=== PATIENT | female | born 2000 | race Caucasian/White ===

== ENCOUNTER 2024-05-14 20:26 | Outpatient (REF) | payer BC, SELFPAY | END 2024-05-14 20:27 | disposition home or self-care (01) | LOC: LAB 20:26 | PROVIDERS: Visit Provider Obstetrics & Gynecology | DX: Z01.419 Encounter for gynecological examination (general) (routine) without abnormal findings (principal) | CPT/HCPCS: 88175 ==

== ENCOUNTER 2025-09-14 19:39 | Outpatient (REF) | payer OTHER, SELFPAY ==
--- OUTSIDE RECORDS SUMMARY | 2017-11-14 07:57 | XMS_ITS | Continuity of Care Document ---
Author Organization [facility] Address [address] [place] [address] Phone Care Team Providers Care Putty Remover Name Role Phone Omar Del Rosario MD [...] Diagnoses Date Provider Providers Copied on Encounter [facility], [address] [place] [address], [id number], tel:[phone] [facility] No Information Miguel Ángel Nelson. [address] [place], [place], [id number], [place]. tel:[phone] [facility], [address] [place], [place], [id number], [place] tel:[phone] [facility] No Information Feliciano Chaves. [address] [place], [place], [id number], [place]. tel:[phone] PREVENTIVE COUNSELING, GEORGE [facility], [address] [place], [place], [id number], [place] tel:[phone] [facility] No Information Feliciano DO Abdalla. [address] [place], [place], [id number], [place]. tel:[phone] Family History Family Member Type Diagnosis Age At Onset No Information Immunizations Vaccine Date Status Comments MCV4 administered Source: New Imm unization Record Tdap administered Source: New Imm unization Record MCV4 (11-55 yrs) administered Source: New Immunization Record Payers Payer name Insurance type Covered alliance party ID Authoriza tion(s) No Information Social [...]
--- OUTSIDE RECORDS SUMMARY | 2024-03-26 07:00 | XMS_ITS ---
Author Organization [facility] Address [address] [place] [address] Care Team Providers Care Television News Producer Name Role Phone Angelika Aparicio Primary Care Provider [phone] REASON FOR VISIT BH F/U Encounters Encounter Location Date Provider Diagnosis [facility] [address] [place] [address] 03/26/2024 Angelika Aparicio Plan Of Treatment No Information Progress Notes * YAO CLARKENZIE NDOB:1999 (24 yo F)Acc No.[id number]:03/26/2024 BH F/U - Patient Patient: GIA DONOHUE Sophia :?ANGELIKA BEANDOB:2000???Age:23 Y ???Sex:FemaleDate:4Phone:[phone]:[address], [id number]-[id number] Subjective: * Chief Complaints: * B H F/U Care Plan Details* * Electronic signature of SATYA Marin on 09/14/2025 at 02:38 PM EDT Sign off status: Pending * Provider: Hussein BEAN Date: 0 03/26/2024 Generated for Printing/Faxing/eTransmitting on:?09/14/2025 02:38 PM EDT
--- OUTSIDE RECORDS SUMMARY | 2024-04-02 07:00 | XMS_ITS ---
Author Organization [facility] Address [address] [place] [address] Care Team Providers Care Wood Veneer Taper Name Role Phone Angelika Aparicio Primary Care Provider [phone] REASON FOR VISIT BH F/U Encounters Encounter Location Date Provider Diagnosis [facility] [address] [place] [address] 04/02/2024 Angelika Aparicio Plan Of Treatment No Information Progress Notes * YAO CLARKENZIE NDOB:1999 (24 yo F)Acc No.[id number]:04/02/2024 BH F/U - Patient Patient: GIA DONOHUE Sophia :?ANGELIKA BEANDOB:2000???Age:23 Y ???Sex:FemaleDate:4Phone:[phone]:[address], [place]-[address] Subjective: * Chief Complaints: * B H F/U Care Plan Details* * Electronic signature of SATYA Marin on 09/14/2025 at 02:38 PM EDT Sign off status: Pending * Provider: Hussein BEAN Date: 0 04/02/2024 Generated for Printing/Faxing/eTransmitting on:?09/14/2025 02:38 PM EDT
--- OUTSIDE RECORDS SUMMARY | 2024-05-08 09:30 | XMS_ITS ---
Author Organization [facility] Address [address] [place] [address] Care Team Providers Care Geothermal Operations Manager Name Role Phone Angelika Aparicio Primary Care Provider [phone] REASON FOR VISIT BH F/U Encounters Encounter Location Date Provider Diagnosis [facility] [address] [place] [address] 05/08/2024 Angelika Aparicio Plan Of Treatment No Information Progress Notes * YAO CLARKENZIE NDOB:1999 (24 yo F)Acc No.[id number]:05/08/2024 BH F/U - Patient Patient: GIA DONOHUE Sophia :?ANGELIKA BEANDOB:2000???Age:23 Y ???Sex:FemaleDate:4Phone:[phone]:[address], [place]-[address] Subjective: * Chief Complaints: * B H F/U Care Plan Details* * Electronic signature of SATYA Marin on 09/14/2025 at 02:38 PM EDT Sign off status: Pending * Provider: Hussein BEAN Date: 0 05/08/2024 Generated for Printing/Faxing/eTransmitting on:?09/14/2025 02:38 PM EDT
--- OUTSIDE RECORDS SUMMARY | 2024-07-11 12:00 | XMS_ITS ---
Author Organization [facility] Address [address] [place] [address] Care Team Providers Care Gunstock Repairer Name Role Phone Angelika Aparicio Primary Care Provider [phone] REASON FOR VISIT BH F/U *ALL INTAKE DUE* Encounters Encounter Location Date Provider Diagnosis [facility] [address] [place] [address] 07/11/2024 Angelika Aparicio Plan Of Treatment No Information Progress Notes * GIA CLARK NDOB:1999 (24 yo F)Acc No.[id number]:07/11/2024 F/U - Patient Patient: GIA DONOHUE Sophia :?ANGELIKA BEANDOB:2000???Age:23 Y ???Sex:FemaleDate:4Phone:[phone]:[address], [place] Subjective: * Chief Complaints: * B H F/U *ALL INTAKE DUE* Care Plan Details* * Electronic signature of SATYA Marin on 09/14/2025 at 02:38 PM EDT Sign off status: Pending * Provider: Hussein BEAN Date: 0 07/11/2024 Generated for Printing/Faxing/eTransmitting on:?09/14/2025 02:38 PM EDT
--- OUTSIDE RECORDS SUMMARY | 2024-07-18 11:00 | XMS_ITS ---
Author Organization [facility] Address [address] [place] [address] Care Team Providers Care Press Catcher Name Role Phone Angelika Aparicio Primary Care Provider REASON FOR VISIT bh f/u Encounters Encounter Location Date Provider Diagnosis [facility] [address] [place] [address] 07/18/2024 Angelika Aparicio Plan Of Treatment No Information Progress Notes * YAO CLARKENZIE NDOB:1999 (24 yo F)Acc No.[id number]:07/18/2024 BH F/U - Patient Patient: GIA DONOHUE Sophia :?ANGELIKA BEANDOB:2000???Age:23 Y ???Sex:FemaleDate:4Phone:[phone]:[address], [place]-[address] Subjective: * Chief Complaints: * B h f/u Care Plan Details* * Electronic signature of SATYA Marin on 09/14/2025 at 02:38 PM EDT Sign off status: Pending * Provider: Hussein BEAN Date: 0 07/18/2024 Generated for Printing/Faxing/eTransmitting on:?09/14/2025 02:38 PM EDT
--- OUTSIDE RECORDS SUMMARY | 2024-07-31 09:00 | XMS_ITS ---
Author Organization [facility] Address [address] [place] [address] Care Team Providers Care Regional Driver Name Role Phone Cristal Aparicio Primary Care Provider REASON FOR VISIT BH F/U Encounters Encounter Location Date Provider Diagnosis [facility] [address] [place] [address] 07/31/2024 Cristal Aparicio Plan Of Treatment No Information Progress Notes * GIA CLARK NDOB:1999 (24 yo F)Acc No.[id number]:07/31/2024 BH F/U - Patient Patient: JOYCE DONOHUEALBINO Cortes :?CRSITAL BEANDOB:2000???Age:23 Y ???Sex:FemaleDate:4Phone:[phone]:[address], [place]-[address] Subjective: * Chief Complaints: * B H F/U Care Plan Details* * Electronic signature of SATYA Marin on 09/14/2025 at 02:38 PM EDT Sign off status: Pending * Provider: Hussein BEAN Date: 0 07/31/2024 Generated for Printing/Faxing/eTransmitting on:?09/14/2025 02:38 PM EDT
--- OUTSIDE RECORDS SUMMARY | 2025-09-14 14:40 | XMS_ITS | Encounter Summary ---
Author Organization [facility] Address [address] [place] [address] Care Team Providers Care Chief Deputy Sheriff Name Role Phone James Mcqueen MD Primary Care Provider [phone] Reason for Visit * ReasonCommentsGynecologic ExamPre-op VisitDx lap Encounter Details DateTypeDepartmentCare Team (Latest Contact Info)Bqeipiodlbf51/27/2025 2:40 PM EDTProcedure Visit [facility] [facility] [address] [place] [address] Vicente Freire DO [address] [place], [facility]11 Pre-op examination; Well woman exam with routine gynecological exam; Pelvic pain in female; Menorrhagia with regular cycle Social History Tobacco UseTypesPacks/DayYears UsedDateSmoking Tobacco: NeverSmokeless Tobacco: NeverAlcohol UseStandard Drinks/WeekCommentsNever0 (1 standard drink = 0.6 oz pure alcohol)CommentsNoSex and Gender InformationValueDate RecordedSex Assigned at BirthNot on fileLegal HqsNbajql71/15/2023 11:09 PM EDTGender IdentityNot on fileSexual OrientationNot on filedocumented as of this encounter Last Filed Vital Signs Vital SignReadingTime TakenCommentsBlood Nkjiflof155/7009/14/2025 2:56 PM EDT Pulse--Temperature--Respiratory Rate--Oxygen Saturation--Inhaled Oxygen Concentration--Sktjlo11.8 kg (125 lb 1.9 oz)09/14/2025 2:56 PM XLJEnvkqe578 cm (5' 3 )09/14/2025 2:56 PM EDTBody Mass Index22.161 2:56 PM EDT documented in this encounter Progress Notes * Kisha Donovan - 09/14/2025 2:40 PM EDT Reason for Appointment: Patient ID: Shrerell Esquivel is a 24 y.o. female who presents for Gynecologic Exam and Pre-op Visit (Dx lap) Patient presents today for Pre Op/Annual appointment. Patient is scheduled to undergo Diagnostic Laparoscopy, possible JAKE, possible FOE, possible BSO on 10/05/[address] Freire at [facility]. MEDICATIONS Current Outpatient Medications Medication Instructions lamoTRIgine [...] History: Diagnosis Date Anxiety Bacterial vaginosis Cancer ([facility]) 2003 Depression Gonorrhea 07/09/2021 Insulin resistance Ovarian [...] nursing note reviewed. Exam conducted with a director of donor relations present. Vitals: Estimated body mass index is [...] reviewed, and patient is to proceed to [facility]. Follow Up: Patient is to follow up between 1-2 weeks post operative to assess proper healing and recovery fromprocedure. Documented by Macy Montano LPN on behalf of: Vicente Freire DO documented in this encounter Plan of Treatment DateTypeDepartmentCare Team (Latest Contact Info)Keksfgwxjpv39/01/2025 4:00 PM ESTOffice Visit [facility] [place] [facility] [address] [place] [address] Marisel Carrizales PA [address] [place] [address] NameTypePriorityAssociated DiagnosesOrder SchedulePap SmearPathology and CytologyRoutine Pre-op examination Ordered: 09/14/2025documented as of this encounter Visit Diagnoses Diagnosis Pre-op examination Well woman exam with routine gynecological exam Routine gynecological examination Pelvic pain in female Unspecified symptom associated with female genital organs Menorrhagia with regular cycle documented in this encounter Care Teams Team MemberRelationshipSpecialtyStart DateEnd Date James Mcqueen MD [address] [place] [address] PCP - GeneralFamily Medicine05/19/23documented as of this encounter
--- OUTSIDE RECORDS SUMMARY | 2025-09-14 19:44 | XMS_ITS | Clinical Summary ---
Author Organization 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)give 2.5ml by mouth at bedtime-if no relief of symptoms, may increase to 5ml daily at bedtime for al lergy symptoms 150ml ctive Active Problems ProblemNoted DateDiagnosed DateAcute lymphoid leukemia in vrdogqueg76/17/2003 Immunizations ImmunizationAdministration DatesNext Dueinfluenza vaccine, unspecified lbhuztsrjfm22/25/2004,09/25/2003varicella zoster immune globulin (VZIG) (VARIZIG)03/16/2004 Family History Medical HistoryRelationCommentsHeadacheFatherMigrainesDiabetesMaternal GrandfatherNoneMaternal GrandmotherNoneMotherHeadachePaternal Grandmother Migraines, seizuresNoneSister 1half-sisterNoneSister 2half-sisterNoneSister 3 RelationStatusCommentsFatherMaternal GrandfatherMaternal GrandmotherMother Paternal GrandmotherSister 1Sister 2Sister 3 Social History Tobacco UseTypesPacks/DayYears UsedDateSmoking Tobacco: NeverAlcohol UseStandard Drinks/WeekCommentsNo0 (1 standard drink = 0.6 oz pure alcohol)Comments NoSex and Gender InformationValueDate RecordedSex Assigned at BirthNot on file Legal NtjWdokqb84/02/2012 9:50 AM ESTGender IdentityNot on fileSexual OrientationNot on file Last Filed Vital Signs Vital SignReadingTime TakenCommentsBlood Tbiaojek265/64012/18/2011 9:09 AM EST Lllqc6635 9:09 AM KJVQigrczdgrdm27.2 ??C (97.1 ??F)12/18/2011 9:09 AM ESTRespiratory Rate--Oxygen Saturation--Inhaled Oxygen Concentration--Eadeyh19.1 kg (95 lb 0.3 oz)12/18/2011 9:09 AM UEZAgjift253.1 cm (4' 10.7 )12/18/2011 9:09 AM ESTBody Mass Index19.39012/18/2011 9:09 AM EST Plan of Treatment Health MaintenanceDue DateLast DoneCommentsPeds To Adult Transition Initial Obuwusbpjk50/26/2010Peds To Adult Transition Annual Lodplreqlk59/26/2012HPV Vaccine (1 - 3-dose series)2013nxiety Cwmxltpnz36/26/2016Depression Xbdxjdfud95/26/2016HIV Ayizmoqpo53/26/2016Hepatitis C Hrnjybbzi42/26/2016 DTaP,Tdap,Td Vaccine (1 - Tdap)2017Hepatitis B Vaccine (1 of 3 - 19+ 3- dose series)2017Cervical Cancer Lhlwzcoan45/26/2019Covid-19 Vaccine (1 - 2024- season)2025Influenza Vaccine (#1), 09/25/2003 Insurance
--- OUTSIDE RECORDS SUMMARY | 2025-09-14 19:44 | XMS_ITS | Encounter Summary ---
Author Organization [facility] Address [address] [place] [address] Care Team Providers Care Automatic Line Set Up Mechanic Name Role Phone James Mcqueen MD Primary Care Provider [phone] Encounter Details DateTypeDepartmentCare Team (Latest Contact Info)Qexoiqkeqit32/20/2025Travel Social History Tobacco UseTypesPacks/DayYears UsedDateSmoking Tobacco: NeverSmokeless Tobacco: NeverAlcohol UseStandard Drinks/WeekCommentsNever0 (1 standard drink = 0.6 oz pure alcohol)CommentsNoSex and Gender InformationValueDate RecordedSex Assigned at BirthNot on fileLegal EjwNhrwxo54/15/2023 11:09 PM EDTGender IdentityNot on fileSexual OrientationNot on filedocumented as of this encounter Plan of Treatment DateTypeDepartmentCare Team (Latest Contact Info)Gtnxehhtizr04/01/2025 4:00 PM ESTOffice Visit [facility] [address] [facility] [place] [address] Marisel Carrizales PA [address] [facility] [place] [address] documented as of this encounter Visit Diagnoses Not on filedocumented in this encounter Care Teams Team MemberRelationshipSpecialtyStart DateEnd Date James Mcqueen MD [address] [place] [address] [place] [address] PCP - GeneralFamily Medicine05/19/23documented as of this encounter
--- OUTSIDE RECORDS SUMMARY | 2025-09-14 19:44 | XMS_ITS | Encounter Summary ---
Author Organization [facility] Address [address] [place] [address] Care Team Providers Care Motorcycle Mechanic Apprentice Name Role Phone James Mcqueen MD Primary Care Provider [phone] Encounter Details DateTypeDepartmentCare Team (Latest Contact Info)Hcskacssjez79/27/2025amboo flowsheet [facility] [address] [place] [address] Vicente Freire DO [address] [place] [address] Social History Tobacco UseTypesPacks/DayYears UsedDateSmoking Tobacco: NeverSmokeless Tobacco: NeverAlcohol UseStandard Drinks/WeekCommentsNever0 (1 standard drink = 0.6 oz pure alcohol)CommentsNoSex and Gender InformationValueDate RecordedSex Assigned at BirthNot on fileLegal LscYujcey72/15/2023 11:09 PM EDTGender IdentityNot on fileSexual OrientationNot on filedocumented as of this encounter Plan of Treatment DateTypeDepartmentCare Team (Latest Contact Info)Gfgzdurhydo14/01/2025 4:00 PM ESTOffice Visit [facility] [address] [place] [address] Marisel Carrizales PA [address] [place] [address] documented as of this encounter Visit Diagnoses Not on filedocumented in this encounter Care Teams Team MemberRelationshipSpecialtyStart DateEnd Date James Mcqueen MD [address] [place] [address] [place] [address] [place] [address] PCP - GeneralFamily Medicine05/19/23documented as of this encounter
--- OUTSIDE RECORDS SUMMARY | 2025-09-14 19:44 | XMS_ITS | Clinical Summary ---
Author Organization [facility] Address [address] [place] [address] Care Team Providers Care Dental Biller Name Role Phone James Mcqueen MD Primary Care Provider [phone] Allergies Active AllergyReactionsCriticalityNoted DateCommentsOndansetronAnaphylaxis,Hives High05/14/2023 Other Reaction(s): anaphylaxis Medications MedicationSigDispense QuantityRefillsLast FilledStart DateEnd DateStatus QUEtiapine (SEROquel) 25 MG tablet Take by mouth12/17/2023ctive lamoTRIgine (LaMICtal) 200 MG tablet 200 mgActive metFORMIN XR (Glucophage-XR) 500 MG 24 hr tablet 500 mgActive docusate sodium (Colace) 100 MG capsule Indications:Constipation, unspecified constipation typeTake 1 capsule (100 mg) by mouth 2 (two) times a day as needed for constipation for up to 10 days 30 capsule Expired Encounters DateTypeDepartmentCare DvpzJhbwycleuhl63/27/2025 2:40 PM EDTPro[place] [address] Vicente Freire DO Pre-op examination; Well woman exam with routine gynecological exam; Pelvic pain in female; Menorrhagia with regular cycle09/14/2025amboo flowsheet [facility] [address] [place] [address] Vicente Freire, 09/07/20250477Kfpxox92/22/2025 3:10 PM EDTOffice Visit [facility] [address] [place] [address] [place] [address] Vicente Freire, Constipation, unspecified constipation type (Primary Dx); Menorrhagia with regular cycle; Painful menstrual periods; Nausea and vomiting, unspecified vomiting type; Intractable menstrual migraine with status teygnikymbg93/22/2025amboo flowsheet [facility] [address] [place] [address] [place] [address] Vicente Freire DO 08/03/2025Travelfrom Last 3 Months Social History Tobacco UseTypesPacks/DayYears UsedDateSmoking Tobacco: NeverSmokeless Tobacco: Never Tobacco Cessation:Counseling Given: Not Answered Alcohol UseStandard Drinks/WeekCommentsNever0 (1 standard drink = 0.6 oz pure alcohol)CommentsNoSex and Gender InformationValueDate RecordedSex Assigned at BirthNot on fileLegal MmxEkvuhi25/15/2023 11:09 PM EDTGender IdentityNot on fileSexual OrientationNot on file Last Filed Vital Signs Vital SignReadingTime TakenCommentsBlood Jylzevlj499/7010 2:56 PM EDT Cjzcw235205/19/2023 10:26 AM RHYSjqdczvnabb08.7 ??C (98 ??F)05/19/2023 10:26 AM EDTRespiratory Rate--Oxygen Plzymzhgea68%05/19/2023 10:26 AM EDTInhaled Oxygen Concentration--Ieoayt77.8 kg (125 lb 1.9 oz)09/14/2025 2:56 PM HDCJguxkf200 cm (5' 3 )09/14/2025 2:56 PM EDTBody Mass Index22.161 2:56 PM EDT Plan of Treatment DateTypeDepartmentCare Team (Latest Contact Info)Ruttjhxxmyv95/01/2025 4:00 PM ESTOffice Visit [facility] [place] [address] Marisel Carrizales PA [address] [place] [address] Health MaintenanceDue DateLast DoneCommentsMMR Vaccines (1 of 1 - Standard series)1999DTaP/Tdap/Td Vaccines (1 - Tdap)2005Varicella Vaccines (1 of 2 - 13+ 2-dose series)2011HPV Vaccines (1 - 3-dose series)2013 Hepatitis B Vaccines (1 of 3 - 19+ 3-dose series)2017COVID-19 Vaccine ( - 2024- season), 05/03/2021, 04/12/2021Influenza Vaccine (#1)/02/2006, 09/09/2005, 09/12/2004, Additional history existsHIB VaccinesAged OutNo longer eligible based on patient's age to complete this topic Hepatitis A VaccinesAged OutNo longer eligible based on patient's age to complete this topicIPV VaccinesAged OutNo longer eligible based on patient's age to complete this topicMeningococcal B VaccineAged OutNo longer eligible based on patient's age to complete this topicMeningococcal VaccineAged OutNo longer eligible based on patient's age to complete this topicPneumococcal Vaccine: Pediatrics (0 to 5 Years) and At-Risk Patients (6 to 64 Years)Aged OutNo longer eligible based on patient's age to complete this topicRotavirus VaccinesAged Out No longer eligible based on patient's age to complete this topic Insurance Care Teams Team MemberRelationshipSpecialtyStart DateEnd James Mcqueen MD [address] [place] [address] [place] [address] PCP - GeneralFamily Medicine05/19/23
--- OUTSIDE RECORDS SUMMARY | 2025-09-14 19:44 | XMS_ITS | Patient Health Record ---
Author Organization [facility] [facility] Address [address] [place] [address] Care Team Providers Care Tank Systems Maintainer Name Role Phone Cristal Aparicio Primary Care Provider [phone] Allergies Allergen (clinical drug ingredient) Drug/Non Drug Allergy documented on EMR Reaction Allergy Type Onset Date Status ZofrananaphylaxisDrug AllergyActive Reason For Referral No Information Medications Medication SIG (Take, Route, Frequency, Duration) Notes Start Date End Date Status Fluticasone Propionate 50 MC G/ACT Suspension SPRAY 1 SPRAY INTO EACH NOSTRIL EVERY DAY FOR 30 DAYS; Duration: 30 Not-Taking/PRNCaplyta 21 MG Capsule1 capsules in evening for 14 days the start next dose Orally Once a day; Duration: 14 days01/24/2024Not-Taking/PRNMeloxicam 15 MG Tablet1 tablet Orally Once a day; Duration: 30 day(s)Not-Taking/PRN lamoTRIgine 25 MG Tabletas directed Orally as directed; Duration: 45 day(s)1 tab po daily x 2wks, then 1 BID x 2wks, then 2 AM and 1 PM x 2wks, then 2 BID x 2 wks, monitor rash/fever05/16/2023Not-Taking/PRNmetFORMIN HCl ER 500 MG Tablet Extended Release 24 HourOral; Duration: 30Not-Taking/PRNARIPiprazole 5 MG Tablet 1 tablet Orally Once a day; Duration: 90 daysNot-Taking/PRNQUEtiapine Fumarate 25 MG Tablet0.5-1 tab at bedtime Orally Once a day; Duration: 90 days Not-Taking/PRNALPRAZolam 0.25 MG Tablet1 tab for anxiety or agitation as needed Orally Twice a day; Duration: 3 days05/05/2024ctivelamoTRIgine 200 MG Tablet TAKE 1 TABLET BY MOUTH DAILY; Duration: 90Not-Taking/PRNRexulti 1 MG Tablet1 tablet Orally Once a day; Duration: 30 day(s)05/16/2023Not-Taking/PRNCaplyta 42 MG Capsule1 capsule Orally Once a day; Duration: 30 days01/24/2024Not-Taking/PRN Caplyta 10.5 MG Capsule1 cap daily in evening Orally once a daydose adjusted /ctivelamoTRIgine 25 MG Tabletas directed Orally as directed; Duration: 56 days1 tab po daily x 2wks, then 1 BID x 2wks, then 2 AM and 1 PM x 2wks, then 2 BID x 2 wks, monitor rash/fever10/24/2023Not-Taking/PRN Immunizations Vaccine Route Administration Date Status Comme nts DTap - Infanrix Unknown 12/20/2022 Administered DTap - WnuttaufVrjmyew79/01/2023dministeredDTap - YaglntkqUvwkfwp04/01/2023 AdministeredDTap - NekezeriZanqgay68/01/2023dministeredDTap - InfanrixUnknown 12/20/2022dministeredHepB - Engerix (Peds/Adol)Jrxufbd41 1998Administered HepB - Engerix (Peds/Adol)Khppeob8201/18/1999AdministeredHepB - Engerix (Peds/Adol)Ytooogk3105/20/1999AdministeredMeningococcal (MENACTRA)Unknown 05/19/20114826FdwxkitmpowkPEUJdtouge24/07/2507MrumexxliokuGDOQpovotb46/26/2004 LwkpvkqxdtepUAAGLFTiosxyu02/25/7797GqicrllitlfkJPANQKOqbgdss08/15/2021 AdministeredPFIZERIM Qqtjozjhdcrwd69/15/2021dministeredBoosterPFIZERUnknown 11/02/2021dministeredPolio, VRJSluwygf99/07/2000AdministeredPolio, IPVUnknown 07/14/20047374SmxxralxtondVXNRYdimxmz24/01/2011dministeredzzz do not use Adult flu Enkrjjm9909/22/2006dministered Social History Tobacco Use: Social History Observation Description Date Details (start date - stop date) Never Smoker NA - NA Social History Social DeterminantsSocial InfoQuestionAnswerNotesPRAPAREDate Completed/Updated: 05/08/2022What is your current housing situation?I have housingAre you worried about losing your housing?NoWhat is the highest level of school that you have finished?High school diploma or GEDWhat is your 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 Check all that applyI do not have problems meeting my needsHas lack of transportation kept you from medical appointments, meetings, work or from getting things needed for daily living?NoHow often do you see or talk to people that you care about and feel close to? (For example: talkingto friends on the phone, visiting friends or family, going to cheondoism or club meetings)More than 5 times a weekHow stressed are you? Stress is when someone feels tense, nervous, anxious, or cant sleep at night because their mind is troubledNot at allIn the past year have you spent more than 2 nights in a row in a correction, long term, shelter center, orjuvenile correctional facility?NoAre you a refugee?NoWhat country are you from?[place]Do you feel physically and emotionally safe where you currently live?YesIn the past year, have you been afraid of your partner or ex-partner?NoPRAPARE Score:2GeneralSocial InfoQuestionAnswerNotesTransition of Care:ER/UC/hospital since last office visit?NoSpecialist seen since last office visit?NoSubstance abuse/mental health issues of patient/familyPatient -DeniesAbility to understand healthcare/treatmentPatient:GoodTobacco Screen:Are you a:never smokerSexual Hx: Had sex in the last 12 months (vaginal, oral, or anal)?Yes? withMen onlyHave you ever had an STD?NoLMP:04/17/2022ocial/Support Concerns:Patient:NoAlcohol Screening:Did you have a drink containing alcohol in the past year?Yes? How often did you have a drink containing alcohol in the past year?Monthly or less (1 point)? How many drinks did you have on a typical day when you were drinking in the past year?3 or 4 (1 point)? How often did you have six or more drinks on one occasion in the past year?Never (0 points)Xonxul2ZscgmweoiulzqdRhvstquw Behaviors affecting healthPoor/Risky Behaviors:Denies-Communication Barrier: Language Barrier?:Not Needed Problems Problem Type SNOMED Code ICD Code Onset Dates Problem Status W/U Status Risk Notes Problem Seasonal allergy (860798003) Seasonal all ergies (J30.2) ActiveconfirmedProblemGeneralized anxiety disorder (88119891)Generalized Anxiety Disorder (JERMAN) (F41.1)ActiveconfirmedProblemTension headache (894996454)Tension headache (G44.209)ActiveconfirmedProblemEpisodic mood disorder (36523168504099) Episodic mood disorder (F39)ActiveconfirmedProblemReduction deformity of lower limb (71765925)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)Active confirmedProblemLate menses (28295509)Late menses (N92.6)Activeconfirmed Plan Of Treatment No Information Insurance Providers Payer Name Payer Address Payer Phone Subscriber Number Group Number Insured Name Patient Relationship to Insured Coverage Start Date Coverage End Date ANTHEM Primary [address] [place] [address] [id number] CONNIE CLARK Parent 3 MEDICAL [facility] [address] [place] [phone] [id number], MACKENZIESelf - patient is the [id number] 2019 2022 Medical (General) History Medical History History ICD Code Tension headaches anxietymood disorderSurgical History Surgery Date(Month/Year) 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
[2025-09-18 00:09] LABS: Age Gdln ACOG Testing Note (.); IGP, rfx Aptima HPV ASCU Note (.)
== END 2025-09-14 19:40 | disposition home or self-care (01) ==
LOC: LAB 19:39
PROVIDERS: Visit Provider Obstetrics & Gynecology
DX: Z01.419 Encounter for gynecological examination (general) (routine) without abnormal findings (principal); Z01.818 Encounter for other preprocedural examination
CPT/HCPCS: 88175

== ENCOUNTER 2025-09-25 07:51 | Outpatient (OUT) | payer OTHER, SELFPAY ==
--- OUTSIDE RECORDS SUMMARY | 2017-11-14 06:57 | XMS_ITS | Continuity of Care Document ---
Author Organization [facility] Address [address] [place] [address] Phone Care Team Providers Care Training And Development Director Name Role Phone Omar Del Rosario MD Unavailable Unavailable Procedures Procedure Date Imm Admin Through 16 Yrs Of Age 016 Meningococcal Conjugate Vaccine 016 PREVENTIVE COUNSELING, INDIV MENINGOCOCCAL VACCINE, IM TDAP VACCINE >7 IM MENINGOCOCCAL VACCINE, IM TDAP VACCINE >7 IM OFFICE/OUTPATIENT VISIT, EST Advance Directives Directive Yes / No Effective Date File Name No Information Encounters Encounter Description Practice Location Reason(s) For Visit Diagnoses Date Provider Providers Copied on Encounter [facility], [address] [place] [address], [id number], tel:[phone] [facility] No Information Miguel Ángel Nelson. [address] [place], [place], [id number], [place]. tel:[phone] [facility], [address] [place], [place], [id number], [place] tel:[phone] [facility] No Information Feliciano Chaves. [address] [place], [place], [id number], [place]. tel:[phone] PREVENTIVE COUNSELING, GEORGE [facility], [address] [place], [place], [id number], [place] tel:[phone] [facility] No Information Feliciano DO Abdalla. [address] [place], [place], [id number], [place]. tel:[phone] Family History Family Member Type Diagnosis Age At Onset No Information Immunizations Vaccine Date Status Comments MCV4 administered Source: New Imm unization Record Tdap administered Source: New Imm unization Record MCV4 (11-55 yrs) administered Source: New Immunization Record Payers Payer name Insurance type Covered constitution party ID Authoriza tion(s) No Information Social History Type Description Quantity Date Captured Comments Sex Female Smoking Status No Information Chief Complaint And Reason For Visit No Information Reason For Referral Reason For Referral No Information History Of Present Illness Encounter Date Complaint History Of Prese nt Illness No Information Functional Status Date Functional Assessmen t No Information Instructions Date Instruction Additional Infor mation No Information Assessments Type Assessment Date No Information Patient Care Teams Name Effective Dates (start - stop) Status Members No Information
--- OUTSIDE RECORDS SUMMARY | 2024-03-26 06:00 | XMS_ITS ---
Author Organization [facility] Address [address] [place] [address] Care Team Providers Care Registered Mail Clerk Name Role Phone Angelika Aparicio Primary Care Provider REASON FOR VISIT BH F/U Encounters Encounter Location Date Provider Diagnosis [facility] [address] [place] [address] 03/26/2024 Angelika Aparicio Plan Of Treatment No Information Progress Notes * JOYCE CLARKIE NDOB:1999 (24 yo F)Acc No.[id number]:03/26/2024 BH F/U - Patient Patient: GIA DONOHUE Sophia :?ANGELIKA BEANDOB:2000???Age:23 Y ???Sex:FemaleDate:4Phone:[phone]:[address] [facility]OP-[address] Subjective: * Chief Complaints: * B H F/U Care Plan Details* * Electronic signature of SATYA Marin on 09/25/2025 at 07:56 AM EST Sign off status: Pending * Provider: Hussein BEAN Date: 0 03/26/2024 Generated for Printing/Faxing/eTransmitting on:?09/25/2025 07:56 AM EST
--- OUTSIDE RECORDS SUMMARY | 2024-04-02 06:00 | XMS_ITS ---
Author Organization [facility] Address [address] [place] [address] Care Team Providers Care Sort Operations Supervisor Name Role Phone Angelika Aparicio Primary Care Provider REASON FOR VISIT BH F/U Encounters Encounter Location Date Provider Diagnosis [facility] [address] [place] [address] 04/02/2024 Angelika Aparicio Plan Of Treatment No Information Progress Notes * JOYCE CLARKIE NDOB:1999 (24 yo F)Acc No.[id number]:04/02/2024 BH F/U - Patient Patient: GIA DONOHUE Sophia :?ANGELIKA BEANDOB:2000???Age:23 Y ???Sex:FemaleDate:4Phone:[phone]:[address]OG-[address] Subjective: * Chief Complaints: * B H F/U Care Plan Details* * Electronic signature of SATYA Marin on 09/25/2025 at 07:55 AM EST Sign off status: Pending * Provider: Hussein BEAN Date: 0 04/02/2024 Generated for Printing/Faxing/eTransmitting on:?09/25/2025 07:55 AM EST
--- OUTSIDE RECORDS SUMMARY | 2024-05-08 08:30 | XMS_ITS ---
Author Organization [facility] Address [address] [place] [address] Care Team Providers Care Track Template Maker Name Role Phone Angelika Aparicio Primary Care Provider REASON FOR VISIT BH F/U Encounters Encounter Location Date Provider Diagnosis [facility] [address] [place] [address] 05/08/2024 Angelika Aparicio Plan Of Treatment No Information Progress Notes * YAO CLARKENZIE NDOB:1999 (24 yo F)Acc No.[id number]:05/08/2024 BH F/U - Patient Patient: GIA DONOHUE Sophia :?ANGELIKA BEANDOB:2000???Age:23 Y ???Sex:FemaleDate:4Phone:[phone]:[address]ASSM REHABCJ-[address] Subjective: * Chief Complaints: * B H F/U Care Plan Details* * Electronic signature of SATYA Marin on 09/25/2025 at 07:55 AM EST Sign off status: Pending * Provider: Hussein BEAN Date: 0 05/08/2024 Generated for Printing/Faxing/eTransmitting on:?09/25/2025 07:55 AM EST
--- OUTSIDE RECORDS SUMMARY | 2024-07-11 11:00 | XMS_ITS ---
Author Organization [facility] Address [address] [place] [address] Care Team Providers Care Brush Cleaner Name Role Phone Angelika Aparicio Primary Care Provider [phone] REASON FOR VISIT BH F/U *ALL INTAKE DUE* Encounters Encounter Location Date Provider Diagnosis [facility] [address] [place] [address] 07/11/2024 Angelika Aparicio Plan Of Treatment No Information Progress Notes * GIA CLARK NDOB:1999 (24 yo F)Acc No.[id number]:07/11/2024 F/U - Patient Patient: GIA DONOHUE Sophia :?ANGELIKA BEANDOB:2000???Age:23 Y ???Sex:FemaleDate:4Phone:[phone]:[address], [place] Subjective: * Chief Complaints: * B H F/U *ALL INTAKE DUE* Care Plan Details* * Electronic signature of SATYA Marin on 09/25/2025 at 07:56 AM EST Sign off status: Pending * Provider: Hussein BEAN Date: 0 07/11/2024 Generated for Printing/Faxing/eTransmitting on:?09/25/2025 07:56 AM EST
--- OUTSIDE RECORDS SUMMARY | 2024-07-18 10:00 | XMS_ITS ---
Author Organization [facility] Address [address] [place] [address] Care Team Providers Care Licensed Weigher Name Role Phone Angelika Aparicio Primary Care Provider REASON FOR VISIT bh f/u Encounters Encounter Location Date Provider Diagnosis [facility] [address] [place] [address] 07/18/2024 Angelika Aparicio Plan Of Treatment No Information Progress Notes * YAO CLARKENZIE NDOB:1999 (24 yo F)Acc No.[id number]:07/18/2024 BH F/U - Patient Patient: GIA DONOHUE Sophia :?ANGELIKA BEANDOB:2000???Age:23 Y ???Sex:FemaleDate:4Phone:[phone]:[address] SERVICESGS-[address] Subjective: * Chief Complaints: * B h f/u Care Plan Details* * Electronic signature of SATYA Marin on 09/25/2025 at 07:55 AM EST Sign off status: Pending * Provider: Hussein BEAN Date: 0 07/18/2024 Generated for Printing/Faxing/eTransmitting on:?09/25/2025 07:55 AM EST
--- OUTSIDE RECORDS SUMMARY | 2024-07-31 08:00 | XMS_ITS ---
Author Organization [facility] Address [address] [place] [address] Care Team Providers Care Health Information Internship Name Role Phone Cristal Aparicio Primary Care Provider REASON FOR VISIT BH F/U Encounters Encounter Location Date Provider Diagnosis [facility] [address] [place] [address] 07/31/2024 Cristal Aparicio Plan Of Treatment No Information Progress Notes * GIA CLARK NDOB:1999 (24 yo F)Acc No.[id number]:07/31/2024 BH F/U - Patient Patient: JOYCE DONOHUEALBNIO Cortes :?CRISTAL BEANDOB:2000???Age:23 Y ???Sex:FemaleDate:4Phone:[phone]:[address], [place]HP[place] Subjective: * Chief Complaints: * B H F/U Care Plan Details* * Electronic signature of SATYA Marin on 09/25/2025 at 07:55 AM EST Sign off status: Pending * Provider: Hussein BEAN Date: 0 07/31/2024 Generated for Printing/Faxing/eTransmitting on:?09/25/2025 07:55 AM EST
--- OUTSIDE RECORDS SUMMARY | 2025-09-14 13:40 | XMS_ITS | Encounter Summary ---
Author Organization [facility] Address [address] [place] [address] Care Team Providers Care Bookkeeping Service Sales Agent Name Role Phone James Mcqueen MD Primary Care Provider [phone] Reason for Visit * ReasonCommentsGynecologic ExamPre-op VisitDx lap Encounter Details DateTypeDepartmentCare Team (Latest Contact Info)Mnnfkfrynrd92/27/2025 2:40 PM EDTProcedure Visit [facility] [address] [address] Vicente Freire DO [address] Tim [place], [facility]11 Pre-op examination; Well woman exam with routine gynecological exam; Pelvic pain in female; Menorrhagia with regular cycle Social History Tobacco UseTypesPacks/DayYears UsedDateSmoking Tobacco: NeverSmokeless Tobacco: NeverAlcohol UseStandard Drinks/WeekCommentsNever0 (1 standard drink = 0.6 oz pure alcohol)CommentsNoSex and Gender InformationValueDate RecordedSex Assigned at BirthNot on fileLegal TupArtymq40/15/2023 11:09 PM EDTGender IdentityNot on fileSexual OrientationNot on filedocumented as of this encounter Last Filed Vital Signs Vital SignReadingTime TakenCommentsBlood Azqvqwie546/7009/14/2025 2:56 PM EDT Pulse--Temperature--Respiratory Rate--Oxygen Saturation--Inhaled Oxygen Concentration--Gwtawq65.8 kg (125 lb 1.9 oz)09/14/2025 2:56 PM REKCotulo488 cm (5' 3 )09/14/2025 2:56 PM EDTBody Mass Index22.161 2:56 PM EDT documented in this encounter Progress Notes * Kisha Donovan - 09/14/2025 2:40 PM EDT Reason for Appointment: Patient ID: Sherrell Esquivel is a 24 y.o. female who presents for Gynecologic Exam and Pre-op Visit (Dx lap) Patient presents today for Pre Op/Annual appointment. Patient is scheduled to undergo Diagnostic Laparoscopy, possible JAKE, possible FOE, possible BSO on 10/05/[address] Freire at [facility]. MEDICATIONS Current Outpatient Medications Medication Instructions lamoTRIgine (LAMICTAL) 200 mg metFORMIN XR (GLUCOPHAGE-XR) 500 mg QUEtiapine (SEROquel) 25 MG tablet Take by mouth ALLERGIES Allergies Allergen Reactions Ondansetron Anaphylaxis and Hives Other Reaction(s): anaphylaxis PROBLEMS Active Ambulatory Problems Diagnosis Date Noted No Active Ambulatory Problems Resolved Ambulatory Problems Diagnosis Date Noted No Resolved Ambulatory Problems Past Medical History: Diagnosis Date Anxiety Bacterial vaginosis Cancer ([facility]) 2003 Depression Gonorrhea 07/09/2021 Insulin resistance Ovarian cyst HISTORY PAST MEDICAL HISTORY SOCIAL HISTORY Past Medical History: Diagnosis Date Anxiety Bacterial vaginosis Cancer ([facility]) 2003 Depression Gonorrhea 07/09/2021 Insulin resistance Ovarian cyst Social History Tobacco Use Smoking status: Never Smokeless tobacco: Never Substance Use Topics Alcohol use: Never Drug use: Never FAMILY HISTORY No family history on file. SURGICAL HISTORY History reviewed. No pertinent surgical history. REVIEW OF SYSTEMS Review of Systems: Review of Systems Constitutional: Negative. HENT: Negative. Eyes: Negative. Respiratory: Negative. Cardiovascular: Negative. Gastrointestinal: Negative. Genitourinary: Positive for menstrual problem and pelvic pain. Musculoskeletal: Negative. Skin: Negative. Neurological: Negative. All other systems reviewed and are negative. Hematological: Negative. Endocrine: Negative. Allergic/Immunologic: Negative. OBJECTIVE Objective: Physical Exam Constitutional: Appearance: Normal appearance. She is well-developed. Genitourinary: Vulva normal. Right Adnexa: not tender and no mass present. Left Adnexa: not tender and no mass present. No cervical discharge. Breasts: Breasts are soft. Right: Normal. Left: Normal. HENT: Head: Normocephalic. Nose: Nose normal. Mouth/Throat: Mouth: Mucous membranes are moist. Cardiovascular: Rate and Rhythm: Normal rate and regular rhythm. Pulmonary: Effort: Pulmonary effort is normal. Breath sounds: Normal breath sounds. Abdominal: General: Bowel sounds are normal. There is no distension. Palpations: Abdomen is soft. Tenderness: There is no abdominal tenderness. There is no guarding or rebound. Musculoskeletal: General: No swelling. Normal range of motion. Cervical back: Normal range of motion. Right lower leg: No edema. Left lower leg: No edema. Neurological: General: No focal deficit present. Mental Status: She is alert and oriented to person, place, and time. Skin: General: Skin is warm and dry. Psychiatric: Mood and Affect: Mood normal. Behavior: Behavior normal. Vitals and nursing note reviewed. Exam conducted with a literary agent present. Vitals: Estimated body mass index is 22.32 kg/m?? as calculated from the following: Height as of 08/10/25: 5' 3 . Weight as of 08/10/25: 126 lb. BP: No LMP recorded. ASSESSMENT & PLAN ICD-10-CM 1. Pre-op examination Z01.818 Pap Smear 2. Well woman exam with routine gynecological exam Z01.419 3. Pelvic pain in female R10.20 4. Menorrhagia with regular cycle N92.0 Annual: Patient presents today for an annual exam. Patient states she is doing well and has no complaints. Pap was obtained without difficulty. Pre Op: Patient is doing well but has complaints of pelvic pain and menorrhagia. I have discussed conservative management vs. surgical management with the patient in detail and patient desires surgical management at this time. Patient will undergo Diagnostic Laparoscopy, possible JAKE, possible FOE, possible BSO on 10/05/2025. Surgical consents were signed, mmc was reviewed, and patient is to proceed to [facility] OR. Follow Up: Patient is to follow up between 1-2 weeks post operative to assess proper healing and recovery fromprocedure. Documented by Macy Montano LPN on behalf of: Vicente Freire DO documented in this encounter Plan of Treatment DateTypeDepartmentCare Team (Latest Contact Info)Cxrucjhhari66/26/2025 2:30 PM ESTOffice Visit [facility] [address] [address] Marisel Carrziales PA [address] [place] [address] NameTypePriorityAssociated DiagnosesOrder SchedulePap SmearPathology and CytologyRoutine Pre-op examination Ordered: 09/14/2025documented as of this encounter Visit Diagnoses Diagnosis Pre-op examination Well woman exam with routine gynecological exam Routine gynecological examination Pelvic pain in female Unspecified symptom associated with female genital organs Menorrhagia with regular cycle documented in this encounter Care Teams Team MemberRelationshipSpecialtyStart DateEnd Date James Mcqueen MD [address] [place] [address] PCP - GeneralFamily Medicine05/19/23documented as of this encounter
--- OUTSIDE RECORDS SUMMARY | 2025-09-25 07:55 | XMS_ITS | CCD ---
Author Organization [facility] Care Team Providers Care White Work Cleaner Name Role Phone [place], Matthieu Attending Provider MARISEL MURO Consulting Unavailable KATHE, DR GUO Primary Care Unavailable MATT .MARISEL Attending Unavailable MATT .MARISEL Admitting Unavailable MOUNA ., DR ALEX Consulting Unavailable MOUNA ., DR ALEX Attending Unavailable MOUNA ., DR ALEX Admitting Unavailable KATHE, DR GUO Primary Care Unavailable James Mcqueen Unavailable James Mcqueen Primary Care Physician Jai Whittington Attending UnavailJai Chávez Attending Unavaila Rayne Dudley DO Primary Care Provider Rayne Patino DO Attending Provider [phone] James Mcqueen MD Primary Care Provider [phone] Rayne Patino Primary Care Unavailable Rayne Patino Attending Unavailable Ryane Patino Admitting Unavailable Abigail Freitas Admitting Unavailable Abigail Freitas Attending Unavailable James Mcqueen Primary Care Unavailable James Mcqueen MD Primary Care Provider [phone] ISAI FREIRE Attending Unavailable ISAI FREIRE Attending Unavailable Allergies Allergy ClassificationReported Allergen(s)Allergy TypeDate of OnsetReaction(s) Facility (1 source)OndansetronDrug Svpsglo80-72-2090[facility] Repository (4 sources)Ondansetron; Translations: [Ondansetron]Drug AllergyFranklyn varghese (disorder)[facility] (6 sources)OndansetronDrug Cmyfcpk79-24-4024Ncnosvbzoti, HivesNOMS Healthcare (1 source)OndansetronDrug Ixujlzg64-15-9338QdsfgfevzSt. [facility] Repository Medications Current Medications MedicationDrug Class(es)DatesSig (Normalized)Sig (Original)brexpiprazole 1 mg oral tablet (1 source)Atypical Antipsychotictake 1 tablet by mouth every twenty-four hours Rexulti 1 MG 1 tablet Orally Once a day ActivebusPIRone hydrochloride 5 mg oral tablet (1 source)Start: 55-69-9299aphe 1 tablet by mouth twice dailyBuspirone 5 mg tablet Active 5 MG PO Twice daily 60 30 September 11, 2025 12:00am Complies with drug therapydocusate sodium 100 mg oral capsule (2 sources)Start: 08-10-2025 End: 47-94-6002wrxz 1 capsule by mouth twice daily as needed for constipation docusate sodium (Colace) 100 MG capsule Indications: Constipation, unspecified constipation type Take 1 capsule (100 mg) by mouth 2 (two) times a day as needed for constipation for up to 10 days 30 capsule 5 08/10/2025 08/20/2025 Active ferrous sulfate 325 mg oral tablet (1 source)Start: 82-79-3670tcxm 1 tablet by mouth once dailyFerrous Sulfate 325 mg (65 mg iron) tablet Active 325 MG PO Daily 30 15 02August 03, 2025 12:00 am Iron deficiency Iron deficiency Complies with drug therapylamotrigine (8 sources)Mood Stabilizer, Anti-epileptic AgentStart: 63-50-6965aucardepgjm Oral, Refills(s) 0 Start Date: 12/17/23 Status: OrderedlamoTRIgine (LaMICtal) 200 MG tablet 200 mg Edkvba47 hr metFORMIN hydrochloride 500 mg extended release oral tablet (5 sources)BiguanidemetFORMIN XR (Glucophage-XR) 500 MG 24 hr tablet 500 mg Activepolyethylene glycol 3350 47317 mg powder for oral solution (2 sources)Osmotic LaxativeStart: 73-66-7286ccps 17 g by mouth once dailyMiralax 3350 17 gram packet 17 gm, Oral, Daily, # 100 EA, Refills(s) 0, Pharmacy: [facility]/pharmacy #[id number], 160, cm, 12/17/23 8:16:00 EST, Height/Length Dosing, 60, kg, 12/17/23 8:16:00 EST, Weight Dosing Start Date: 12/17/23 Status: Ordered predniSONE 20 mg oral tablet (1 source)Start: 06-76-9923ijhjcuWTXO 20 MG take 3 tablets Orally x3 days, then 2 tabs x3 days then 1 tab a day x3 days with food or milk for 9 days Oct, ActiveQUEtiapine 25 mg oral tablet (8 sources)Atypical AntipsychoticStart: 12-31-1346HDVkwgbzsh (SEROquel) 25 MG tablet Take by mouth 12/17/2023 ActiveStart: 46-09-0359Tvjrqiav Oral, Refills(s) 0 Start Date: 12/17/23 Status: Orderedtake 1 tablet by mouth every twenty-four hoursSEROquel 25 MG 1 tablet at bedtime Orally Once a day Active Completed/Discontinued Medications MedicationDrug Class(es)DatesSig (Normalized)Sig (Original)ALPRAZolam 0.25 mg oral tablet (3 sources)BenzodiazepineStart: 02-14-2024 End: 29-18-5500GTQGQStifr (Xanax) 0.25 MG tablet 02/14/2024 08/10/2025 Discontinued (Therapy completed)fluticasone propionate 0.05 mg/actuat metered dose nasal spray (3 sources)CorticosteroidStart: 10-26-2024 End: 76-39-4985aeft 1 spray(s) nasal route once daily as needed for congestion Fluticasone Propionate (Flonase Allergy Relief) 50 mcg/actuation spray,suspension Discontinued 1 SPRAY INTRANASAL Daily as needed for congestion 16 0 October 26, 2024 1:00am July 24, 2025 8:05am administer into each nostril Problems Active Problems Problem ClassificationProblemDateDocumented DateEpisodic/ChronicAbdominal pain (4 sources)Unspecified abdominal pain; Translations: [Left lower quadrant pain] Onset: 55-39-6084FmynkezeKdriolz dysrhythmias (1 source)Palpitations; Translations: [Palpitations]Onset: 03-25-7202Oqptitor Conditions associated with dizziness or vertigo (4 sources)Lightheadedness; Translations: [Dizziness and giddiness]07-24-2025 EpisodicHeadache; including migraine (5 sources)Migraine; Translations: [Migraine, unspecified, not intractable, without status migrainosus]ChronicHeadache; including migraine (4 sources)Headache; Translations: [Headache]99-74-7162DkpuosswHzpdyewujlnxh and screening for infectious disease (1 source)Encounter for screening for human papillomavirus (HPV); Translations: [ENC SCREENING HUMAN PAPILLOMAVIRUS]Onset: 06-64-0224CfpoennvJfphusbsy (2 sources)History of leukemia; Translations: [Personal history of leukemia] 59-61-8786IqjpqnijXhievsw and fatigue (2 sources)Fatigue; Translations: [Other fatigue]84-86-6622UkvuthojWnuoqptec disorders (13 sources)Excessive and frequent menstruation with regular cycle; Translations: [Menorrhagia]Onset: 64-72-5880SidvcozBees disorders (2 sources)Bipolar I disorder; Translations: [Bipolar disorder, unspecified] ChronicNausea and vomiting (2 sources)Nausea and vomiting; Translations: [Nausea with vomiting, unspecified]85-51-9505HvowitzbQzbutjsuyqb deficiencies (1 source)Iron deficiency; Translations: [Iron deficiency]04-10-1587Cyfkfoys Other female genital disorders (1 source)Pain in female pelvis; Translations: [Pelvic pain in female]09-14-2025 EpisodicOther gastrointestinal disorders (4 sources)Constipation; Translations: [Constipation, unspecified]03-13-2024 EpisodicOther gastrointestinal disorders (3 sources)Constipation, unspecified; Translations: [Constipation, unspecified] Onset: 06-45-0344QhmdezpnWmusg screening for suspected conditions (not mental disorders or infectious disease) (4 sources)Encounter for screening for malignant neoplasm of cervix; Translations: [ENC SCREENING MALIG NEOPLASM CERV]Onset: 09-79-3836AupqlolsUgoak upper respiratory disease (1 source)Allergic rhinitis; Translations: [Allergic rhinitis, unspecified] ChronicScreening and history of mental health and substance abuse codes (4 sources)History of mood disorder; Translations: [Personal history of other mental and behavioral disorders]39-90-4580IsgzuxljOvlbk infection (3 sources)Disease caused by 2019-nCoV; Translations: [COVID-19]10-26-2024 Episodic Past or Other Problems Problem ClassificationProblemDateDocumented DateEpisodic/ChronicOther lower respiratory disease (1 source)Shortness of breath; Translations: [Shortness of breath]Onset: 63-29-7837Fshhtbxs Results Test NameValueInterpretationReference RangeFacilityIGP,APTIMA HPV,AGE GDLNon 05-65-1391WEV GDLN ACOG TESTINGNote.NOMS HealthcareComment on above:TESTS RESULT FLAG UNITS REF RANGE LAB Clinician Provided Cytology Information Source.............Cervix;Endocervix No. of containers..01 ThinPrep Vial Age Algo ACOG Latasha... FLAG LEGEND: L-Low Normal,H-High Normal,LL-Alert Low,HH-Alert High <-Panic Low,>-Panic High,A-Abnormal,AA-Critical Abnormal Performed at: 01 =G [facility] [place] [address] Amada Lboo MD, IGP, RFX APTIMA HPV ASCUNote.NOMS HealthcareComment on above:TESTS RESULT FLAG UNITS REF RANGE LAB DIAGNOSIS: 02 NEGATIVE FOR INTRAEPITHELIAL LESION OR MALIGNANCY. Specimen adequacy: 02 Satisfactory for evaluation. Endocervical and/or squamous metaplastic cells (endocervical component) are present. Performed by: Ciara Beatty Tubular Splitting Machine Tender ([facility]) . 02 Note: Note 02 The Pap smear is a screening test designed to aid in the detection of premalignant and malignant conditions of the uterine cervix. It is not a diagnostic procedure and should not be used as the sole means of detecting cervical cancer. Both false-positive and false-negative reports do occur. Test Methodology: Note 02 This liquid based ThinPrep(R) pap test was interpreted using the SmartThingsRCasentric(TM) Cervical Algorithm whole slide imaging system. . 02 The HPV DNA reflex criteria were not met with this specimen result therefore, no HPV testing was performed. FLAG LEGEND: L-Low Normal,H-High Normal,LL-Alert Low,HH-Alert High <-Panic Low,>-Panic High,A-Abnormal,AA-Critical Abnormal Performed at: [address] [place] [address] Amada Lobo MD, Performed at: =G - [facility] [id number] Document Controller: Amada Lobo MD, Phone: [phone] Performed at: [address] [id number] Document Controller: Amada Lobo MD, Phone: [phone] BRUSH-SPATULA CERVIX ENDOCERVIX CLINISYNCNOMS HealthcareAlanine aminotransferase [Enzymatic activity/volume] in Serum or PlasmaOrdered By: Rayne Patino on 07-62-4647KEP [Catalytic activity/Vol]7 U/L7-52St. Rita'S HospitalComment on above: Performed By: #### LIPID, [id number], T4F, TSH3, CBC, RETIC, CMP wRFX A1C, MG, FE and TIBC, JARED #### [facility] [address] [place] [address] USAAlbumin [Mass/volume] in Serum or Plasma by Bromocresol green (BCG) dye binding methoOrdered By: Rayne Patino on 32-77-3355Lqfehla BCG dye [Mass/Vol]4.7 g/dL3.5-5.7FOhioHealth O'Bleness HospitalAlkaline phosphatase [Enzymatic activity/volume] in Serum or PlasmaOrdered By: Rayne Patino on 31-12-9369EXF [Catalytic activity/Vol]39 U/Z90-363HibntxigoSt. Rita'S HospitalComment on above:Performed By: #### LIPID, [id number], T4F, TSH3, CBC, RETIC, CMP wRFX A1C, MG, FE and TIBC, JARED #### [facility] [address] [place] [address] USAAspartate aminotransferase [Enzymatic activity/volume] in Serum or PlasmaOrdered By: Rayne Patino on 52-27-1904EDZ [Catalytic activity/Vol]11 U/PXoo66-87VzbwdvuzeSt. Rita'S HospitalComment on above: Performed By: #### LIPID, [id number], T4F, TSH3, CBC, RETIC, CMP wRFX A1C, MG, FE and TIBC, JARED #### [facility] [address] [place] [address] USABasophils [#/volume] in Blood by Automated countOrdered By: Rayne Patino on 33-54-9145Gzbsvemhb (Bld) [#/Vol]0.0 10*3/uL0.0-0.2 [facility]'S HospitalComment on above:Performed By: #### LIPID, [id number], T4F, TSH3, CBC, RETIC, CMP wRFX A1C, MG, FE and TIBC, JARED #### [facility] [address] [place] [id number] USABasophils/100 leukocytes in Blood by Automated count Ordered By: Rayne Patino on 98-64-1622Rlavtbsfb/100 WBC (Bld)0.5 %.St. Rita'S HospitalComment on above:Performed By: #### LIPID, [id number], T4F, TSH3, CBC, RETIC, CMP wRFX A1C, MG, FE and TIBC, JARED #### [place] [id number] USABilirubin.total [Mass/volume] in Serum or PlasmaOrdered By: Rayne Patino on 80-76-3220Jynovdjss [Mass/Vol]0.5 mg/dL0.3-1.0St. Rita'S HospitalComment on above:Performed By: #### LIPID, [id number], T4F, TSH3, CBC, RETIC, CMP wRFX A1C, MG, FE and TIBC, JARED #### [place] [address] USACMP with reflex to A1Con 87-41-5236Vbuergi [Mass/Vol]4.7 g/dLNormal3.5-5.7The Former[facility] Health Care Physician GroupComment on above:Performed By: #### LIPID, [id number], T4F, TSH3, CBC, RETIC, CMP wRFX A1C, MG, FE and TIBC, JARED #### [place] [phone] USAGFR/1.73 sq M.predicted MDRD (S/P/Bld) [Vol rate/Area] mL/min/{1.73_m2}NormalThe Formerly [facility] Unc Health Care Physician GroupComment on above:Performed By: #### LIPID, [id number], T4F, TSH3, CBC, RETIC, CMP wRFX A1C, MG, FE and TIBC, JARED #### [place] [address] USACalcium [Mass/volume] in Serum or PlasmaOrdered By: Rayne Patino on 35-80-9318Nswaaay [Mass/Vol]8.7 mg/dL8.6-10.3FOhioHealth O'Bleness HospitalComment on above:Performed By: #### LIPID, [id number], T4F, TSH3, CBC, RETIC, CMP wRFX A1C, MG, FE and TIBC, JARED #### [facility] [address] [place] [address] USACarbon dioxide, total [Moles/volume] in Serum or Plasma Ordered By: Rayne Patino on 31-89-4624RO9 [Moles/Vol]25.4 mmol/L21.0-31.0 [facility]'S HospitalComment on above:Performed By: #### LIPID, [id number], T4F, TSH3, CBC, RETIC, CMP wRFX A1C, MG, FE and TIBC, JARED #### [facility] [address] [place] [address] USAChloride [Moles/volume] in Serum or PlasmaOrdered By: Rayne Patino on 45-25-0045Ozxbsrvg [Moles/Vol]106 mmol/M89-609BkeihyrnxSt. Rita'S HospitalComment on above:Performed By: #### LIPID, [id number], T4F, TSH3, CBC, RETIC, CMP wRFX A1C, MG, FE and TIBC, JARED #### [facility] [address] [place] [address] USACholesterol [Mass/volume] in Serum or PlasmaOrdered By: Rayne Patino on 36-17-2242Leltbhsbabu [Mass/Vol]168 mg/wI194-880GacnksrjpSt. Rita'S HospitalComment on above:Chol less than 200 mg/dl low riskChol 201-239 mg/dl borderline riskChol 240 mg/dl and greater high riskResult Comment: Chol less than 200 mg/dl low risk Chol 201-239 mg/dl borderline risk Chol 240 mg/dl and greater high riskPerformed By: #### LIPID, [id number], T4F, TSH3, CBC, RETIC, CMP wRFX A1C, MG, FE and TIBC, JARED #### [facility] [address] [place] [address] USACholesterol in HDL [Mass/volume] in Serum or PlasmaOrdered By: Rayne Patino on 19-32-0920Pqsfvwugsik in HDL [Mass/Vol]55 mg/dL23-92 [facility]'S HospitalComment on above:HDL CHOL ATP-III CLASSIFICATION Cardiovascular RiskHDL > or equal to 60 mg/dL LOWHDL < 40 mg/dL HIGHResult Comment: HDL CHOL ATP-III CLASSIFICATION Cardiovascular Risk HDL > or equal to 60 mg/dL LOW HDL < 40 mg/dL HIGHPerformed By: #### LIPID, [id number], T4F, TSH3, CBC, RETIC, CMP wRFX A1C, MG, FE and TIBC, JARED #### [facility] [address] [place] [address] USACholesterol in LDL Calc [Mass/Vol]Ordered By: Rayne Patino on 85-45-4389Jiuvxjmhytj in LDL [Mass/Vol]103 mg/dLHigh0-100St. Rita'S HospitalComment on above:LDL ATP III CLASSIFICATIONLDL less than 100 mg/dL OptimalLDL 100-129 mg/dL Near or above nklsflmDGN686-038 mg/dL Borderline highLDL 160-189 mg/dL HighLDL greater than 189 mg/dL Very high Cholesterol in VLDL Calc [Mass/Vol]Ordered By: Rayne Patino on 08-01-2025 Cholesterol in VLDL [Mass/Vol]10 mg/dLSt. Rita'S HospitalComplete Blood Count Auto Diffon 55-00-3227Tvnl Corpuscular HGB Conc34.6 g/dLNormal 32.0-35.0The Former[facility] Health Care Physician GroupComment on above:Performed By: #### LIPID, [id number], T4F, TSH3, CBC, RETIC, CMP wRFX A1C, MG, FE and TIBC, JARED #### [facility] [address] [place] [address] USANRBC%0.1 /100{WBC}Normal0-0.5The [facility] Comment on above:Performed By: #### LIPID, [id number], T4F, TSH3, CBC, RETIC, CMP wRFX A1C, MG, FE and TIBC, JARED #### [facility] [address] [place] [address] USAWhite Blood Count5.2 [CFU]/mLNormal3.8-11.6The [facility] Health Care Physician GroupComment on above:Performed By: #### LIPID, [id number], T4F, TSH3, CBC, RETIC, CMP wRFX A1C, MG, FE and TIBC, JARED #### [facility] [address] [place] [address] USACreatinine [Mass/volume] in Serum or PlasmaOrdered By: Rayne Patino on 04-59-5549Gpcezdguru [Mass/Vol]0.50 mg/dLLow0.60-1.20St. [facility]'S HospitalComment on above:Performed By: #### LIPID, [id number], T4F, TSH3, CBC, RETIC, CMP wRFX A1C, MG, FE and TIBC, JARED #### [facility] [address] [place] [address] USAEosinophils [#/volume] in Blood by Automated countOrdered By: Rayne Patino on 56-70-2731Tdyqdwvozgl (Bld) [#/Vol]0.1 10*3/uL0.0-0.45 [facility]'S HospitalComment on above:Performed By: #### LIPID, [id number], T4F, TSH3, CBC, RETIC, CMP wRFX A1C, MG, FE and TIBC, JARED #### [facility] [address] [place] [address] USAEosinophils/100 leukocytes in Blood by Automated count Ordered By: Rayne Patino on 28-21-6660Glojclpcqdw/100 WBC (Bld)2.6 %.[facility]'S HospitalComment on above:Performed By: #### LIPID, [id number], T4F, TSH3, CBC, RETIC, CMP wRFX A1C, MG, FE and TIBC, JARED #### [facility] [address] [place] [address] USAErythrocyte distribution width [Ratio] by Automated count Ordered By: Rayne Patino on 08-54-5748Oruyiiqpobg distribution width (RBC) [Ratio]13.4 %11.9-15.3FOhioHealth O'Bleness HospitalComment on above: Performed By: #### LIPID, [id number], T4F, TSH3, CBC, RETIC, CMP wRFX A1C, MG, FE and TIBC, JARED #### [facility] [address] [place] [address] USAErythrocytes [#/volume] in Blood by Automated countOrdered By: Rayne Patino on 27-12-2353QTA (Bld) [#/Vol]4.96 10*6/uL3.60-5.00St. Rita'S HospitalComment on above:Performed By: #### LIPID, [id number], T4F, TSH3, CBC, RETIC, CMP wRFX A1C, MG, FE and TIBC, JARED #### [facility] [address] [place] [address] USAFerritin [Mass/volume] in Serum or PlasmaOrdered By: Rayne Patino on 44-87-6143Arcsdtrk [Mass/Vol]6.6 ng/mLLow11.0-306.8St. Rita'S HospitalComment on above:Performed By: #### LIPID, [id number], T4F, TSH3, CBC, RETIC, CMP wRFX A1C, MG, FE and TIBC, JARED #### [facility] [address] [place] [address] USAFolate [Mass/volume] in Serum or PlasmaOrdered By: Rayne Patino on 42-94-7790Oexswp [Mass/Vol]7.2 ng/mL>5.9St. Rita'S HospitalComment on above:Folate reference range: >5.9 ng/mlThe WHO technical consultation on folate and vitamin b28qyfpzosjjuby has determined that folate concentrations lessthan 4 ng/ml are considered deficient.Glomerular filtration rate [Volume Rate/Area] in Serum, Plasma or Blood by Creatinine Ordered By: Rayne Patino on 71-24-4513Nsujdzeihm filtration rate [Volume Rate/Area] in Serum, Plasma or Blood by Creatinine> 60.0 mL/MinSt. Rita'S HospitalGlucose [Mass/volume] in Serum or PlasmaOrdered By: Rayne Patino on 76-73-8585Xdnjjkb [Mass/Vol]95 mg/jD84-174TiiauhiohSt. Rita'S HospitalComment on above:Performed By: #### LIPID, [id number], T4F, TSH3, CBC, RETIC, CMP wRFX A1C, MG, FE and TIBC, JARED #### [facility] [address] [place] [address] USAHematocrit [Volume Fraction] of Blood by Automated count Ordered By: Rayne Williamsonon on 31-16-5548Tirabweroe (Bld) [Volume fraction]40.9 % 34.0-46.4FOhioHealth O'Bleness HospitalComment on above:Performed By: #### LIPID, [id number], T4F, TSH3, CBC, RETIC, CMP wRFX A1C, MG, FE and TIBC, JARED #### [facility] [address] [place] [address] USAHemoglobin [Mass/volume] in BloodOrdered By: Rayne Sukumar on 61-00-8876Hnctbyxavm (Bld) [Mass/Vol]14.1 g/dL11.8-15.4FOhioHealth O'Bleness HospitalComment on above:Performed By: #### LIPID, [id number], T4F, TSH3, CBC, RETIC, CMP wRFX A1C, MG, FE and TIBC, JARED #### [facility] [address] [place] [address] USAIron [Mass/volume] in Serum or PlasmaOrdered By: Rayne Sukumar on 83-49-7543Ebhb [Mass/Vol]61 ug/cS72-294SnnhroynwSt. Rita'S HospitalComment on above:Performed By: #### LIPID, [id number], T4F, TSH3, CBC, RETIC, CMP wRFX A1C, MG, FE and TIBC, JARED #### [facility] [address] [place] [address] USAIron and TIBC Profileon 08-01-2025% Iron Otzbwswpqj01.7 % Hpg72-87Vyc Former[facility] Health Care Physician GroupComment on above:Performed By: #### LIPID, [id number], T4F, TSH3, CBC, RETIC, CMP wRFX A1C, MG, FE and TIBC, JARED #### [facility] [address] [place] [address] USATotal Iron Binding Mpyoqmma715 ug/qMEpyv856-763Hof Former[facility] Health Care Physician GroupComment on above:Performed By: #### LIPID, [id number], T4F, TSH3, CBC, RETIC, CMP wRFX A1C, MG, FE and TIBC, JARED #### [facility] [address] [place] [address] USALeukocytes [#/volume] corrected for nucleated erythrocytes in Blood by Automated counOrdered By: Rayne Patino on 96-85-7671YWQ corrected for nucl RBC Auto (Bld) [#/Vol]5.2 10*3/uL3.8-11.[address] [place], [place] [address]Leukocytes [#/volume] in Blood by Automated countOrdered By: Rayne Patino on 42-85-8319OBD (Bld) [#/Vol]5.2 10*3/uL3.8-11.6FOhioHealth O'Bleness HospitalComment on above:Performed By: #### LIPID, [id number], T4F, TSH3, CBC, RETIC, CMP wRFX A1C, MG, FE and TIBC, JARED #### [facility] [address] [place] [address] USALipid Panelon 36-78-7766OME Cholesterol,Fllvbndhai574 mg/dLHigh0-100The [facility] Health Care Physician GroupComment on above:Result Comment: LDL ATP III CLASSIFICATION LDL less than 100 mg/dL Optimal LDL 100-129 mg/dL Near or above optimal LDL 130-159 mg/dL Borderline high LDL 160-189 mg/dL High LDL greater than 189 mg/dL Very highPerformed By: #### LIPID, [id number], T4F, TSH3, CBC, RETIC, CMP wRFX A1C, MG, FE and TIBC, JARED #### [facility] [address] [place] [address] USATriglyceride w/Jzeosi60 mg/dLNormal0-149The [facility] Health Care Physician GroupComment on above:Result Comment: TRIG ATP III CLASSIFICATION TRIG less than 150 mg/dL Normal TRIG 150-199 mg/dL Borderline high TRIG 200-500 mg/dL High TRIG greater than 500 mg/dL Very high Standard traceable to the Center for Disease Conrtrol and Prevention (CDC) test method.Performed By: #### LIPID, [id number], T4F, TSH3, CBC, RETIC, CMP wRFX A1C, MG, FE and TIBC, JARED #### [facility] [address] [place] [address] USAVLDL OEHMLLJSTGW50 mg/dLNoSelect Specialty Hospital - Durham Physician GroupComment on above:Performed By: #### LIPID, [id number], T4F, TSH3, CBC, RETIC, CMP wRFX A1C, MG, FE and TIBC, JARED #### [facility] [address] [place] [address] USALymphocytes [#/volume] in Blood by Automated countOrdered By: Rayne Patino on 06-05-1794Meqdvwqofmd (Bld) [#/Vol]1.7 10*3/uL1.00-4.8 [facility]'S HospitalComment on above:Performed By: #### LIPID, [id number], T4F, TSH3, CBC, RETIC, CMP wRFX A1C, MG, FE and TIBC, JARED #### [facility] [address] [place] [id number] USALymphocytes/100 leukocytes in Blood by Automated count Ordered By: Rayne Patino on 96-80-1031Vpqletgrxki/100 WBC (Bld)32.5 %. [facility]'S HospitalComment on above:Performed By: #### LIPID, [id number], T4F, TSH3, CBC, RETIC, CMP wRFX A1C, MG, FE and TIBC, JARED #### [facility] [address] [place] [id number] USAH [Entitic mass] by Automated countOrdered By: Rayne Patino on 80-95-5719EUS (RBC) [Entitic mass]28.5 pg24.7-34.3FOhioHealth O'Bleness HospitalComment on above:Performed By: #### LIPID, [id number], T4F, TSH3, CBC, RETIC, CMP wRFX A1C, MG, FE and TIBC, JARED #### [facility] [address] [place] [address] [facility] Auto (RBC) [Mass/Vol]Ordered By: Rayne Patino on 75-60-7953EASC (RBC) [Mass/Vol]34.6 g/dL32.0-35.0St. Rita'S HospitalMCV [Entitic volume] by Automated countOrdered By: Rayne Patino on 68-72-1226WHN (RBC) [Entitic vol]82.4 gN64-875EllneunmeSt. Rita'S Hospital Comment on above:Performed By: #### LIPID, [id number], T4F, TSH3, CBC, RETIC, CMP wRFX A1C, MG, FE and TIBC, JARED #### [facility] [address] [place] [address] USAMagnesium [Mass/volume] in Serum or PlasmaOrdered By: Rayne Patino on 77-66-9356Idmkgptce [Mass/Vol]2.0 mg/dL1.9-2.7FOhioHealth O'Bleness HospitalComment on above:Performed By: #### LIPID, [id number], T4F, TSH3, CBC, RETIC, CMP wRFX A1C, MG, FE and TIBC, JARED #### [facility] [address] [place] [address] USAMonocytes [#/volume] in Blood by Automated countOrdered By: Rayne Patino on 43-08-9384Qcwntcxin (Bld) [#/Vol]0.2 10*3/uL0.0-0.8 [facility] Rita'S HospitalComment on above:Performed By: #### LIPID, [id number], T4F, TSH3, CBC, RETIC, CMP wRFX A1C, MG, FE and TIBC, JARED #### [facility] [address] [place] [address] USAMonocytes/100 leukocytes in Blood by Automated count Ordered By: Rayne Patino on 65-00-8527Vmpdaaczn/100 WBC (Bld)4.6 %.St[facility] Rita'S HospitalComment on above:Performed By: #### LIPID, [id number], T4F, TSH3, CBC, RETIC, CMP wRFX A1C, MG, FE and TIBC, JARED #### [facility] [address] [place] [address] USANeutrophils [#/volume] in Blood by Automated countOrdered By: Rayne Patino on 79-06-6260Nqxdatekhzd (Bld) [#/Vol]3.1 10*3/uL1.8-7.7 [facility]'S HospitalComment on above:Performed By: #### LIPID, [id number], T4F, TSH3, CBC, RETIC, CMP wRFX A1C, MG, FE and TIBC, JARED #### [facility] [address] [place] [address] USANeutrophils/100 leukocytes in Blood by Automated count Ordered By: Rayne Patino on 03-80-3536Ifreegqkgii/100 WBC (Bld)59.8 %. [facility] Rita'S HospitalComment on above:Performed By: #### LIPID, [id number], T4F, TSH3, CBC, RETIC, CMP wRFX A1C, MG, FE and TIBC, JARED #### [facility] [address] [place] [address] USANo Panel InformationOrdered By: Rayne Patino on 15-78-4492Nxmbtkiy Creatinine Clearance (ChemN/AFOhioHealth O'Bleness HospitalNucleated erythrocytes [Presence] in Blood by Automated countOrdered By: Rayne Patino on 24-16-9295Hzndcggaz RBC Auto Ql (Bld)0.1 /100{WBC}0-0.5 [facility] Rita'S HospitalPlatelet mean volume [Entitic volume] in Blood by Automated countOrdered By: Rayne Patino on 62-19-0315Fsuvkarh mean volume (Bld) [Entitic vol]9.0 fL6.3-10.7FOhioHealth O'Bleness HospitalComment on above:Performed By: #### LIPID, [id number], T4F, TSH3, CBC, RETIC, CMP wRFX A1C, MG, FE and TIBC, JARED #### [facility] [address] [place] [address] USAPlatelets [#/volume] in Blood by Automated countOrdered By: Raynejuju Patino on 93-85-9609Jykyzitbc (Bld) [#/Vol]186 10*3/yH983-470 [facility]'S HospitalComment on above:Performed By: #### LIPID, [id number], T4F, TSH3, CBC, RETIC, CMP wRFX A1C, MG, FE and TIBC, JARED #### [facility] [address] [place] [address] USAPotassium [Moles/volume] in Serum or PlasmaOrdered By: Rayne Patino on 43-40-1035Peehbqilh [Moles/Vol]4.0 mmol/L3.5-5.1FOhioHealth O'Bleness HospitalComment on above:Performed By: #### LIPID, [id number], T4F, TSH3, CBC, RETIC, CMP wRFX A1C, MG, FE and TIBC, JARED #### [address] [address] USAProtein [Mass/volume] in Serum or PlasmaOrdered By: Rayne Patino on 30-90-8157Zsobahg [Mass/Vol]7.2 g/dL6.4-8.9St. Rita'S HospitalComment on above:Performed By: #### LIPID, [id number], T4F, TSH3, CBC, RETIC, CMP wRFX A1C, MG, FE and TIBC, JARED #### [address] [address] USAReticulocyte Counton 25-96-3118Dmmdvmarkxww Number0.051 10*6/uLNormal0.024-0.084The Former[facility] Health Care Physician GroupComment on above:Result Comment: PERFORMED BY: [place] [id number] PATHOLOGIST MANAGER NURSING APRIL MELCHOR M.D.Performed By: #### LIPID, [id number], T4F, TSH3, CBC, RETIC, CMP wRFX A1C, MG, FE and TIBC, JARED #### [facility] [address] [place] [address] USAReticulocyte Percent1.0 %Normal0.5-1.5The [facility] Health Care Physician GroupComment on above:Performed By: #### LIPID, [id number], T4F, TSH3, CBC, RETIC, CMP wRFX A1C, MG, FE and TIBC, JARED #### [facility] [address] [place] [address] USAReticulocytes [#/volume] in BloodOrdered By: Rayne Patino on 52-22-4878Xlnbluhmhsgzn (Bld) [#/Vol]0.051 10*6/uL0.024-0.084St. Rita'S HospitalReticulocytes/100 RBC Auto (Bld)Ordered By: Rayne Patino on 66-34-7806Vhgqnqkbfllbj/100 RBC (Bld)1.0 %0.5-1.5FParkview Healtherum globulin measurement by calculation (mass/volume)Ordered By: Rayne Patino on 46-75-1555Vaabqkiq (S) [Mass/Vol]2.5 g/dLSt. Rita'S HospitalComment on above:Performed By: #### LIPID, [id number], T4F, TSH3, CBC, RETIC, CMP wRFX A1C, MG, FE and TIBC, JARED #### [facility] [address] [place] [address] USASerum or plasma albumin/globulin mass ratioOrdered By: Rayne Patino on 31-33-1236Zvgpbva/Globulin [Mass ratio]1.9 {ratio}St. Rita'S HospitalComment on above:Performed By: #### LIPID, [id number], T4F, TSH3, CBC, RETIC, CMP wRFX A1C, MG, FE and TIBC, JARED #### [facility] [address] [place] [address] USASerum or plasma anion gap determinationOrdered By: Rayne Patino on 13-59-5062Errwj gap [Moles/Vol]10.6 mmol/L6.0-15.0St. Rita'S HospitalComment on above:Performed By: #### LIPID, [id number], T4F, TSH3, CBC, RETIC, CMP wRFX A1C, MG, FE and TIBC, JARED #### [facility] [address] [place] [address] USASerum or plasma iron binding capacity measurement (mass/volume)Ordered By: Rayne Patino on 22-38-5283Tsvl binding capacity [Mass/Vol]479 ug/wSXxlj078-430TjhkxfiygCleveland Clinicerum or plasma iron saturation measurement (mass fraction)Ordered By: Rayne Patino on 88-18-9779Jrpn saturation [Mass fraction]12.7 %Axp06-97CypirtlmaCleveland Clinicerum or plasma total cholesterol/high density lipoprotein (HDL) cholesterol mass ratOrdered By: Rayne Patino on 08-01-2025 Cholesterol.total/Cholesterol in HDL [Mass ratio]3.1 {ratio}<5.0St. Rita'S HospitalComment on above:Performed By: #### LIPID, [id number], T4F, TSH3, CBC, RETIC, CMP wRFX A1C, MG, FE and TIBC, JARED #### [facility] [address] [place] [address] USASodium [Moles/volume] in Serum or PlasmaOrdered By: Rayne Patino on 06-64-5732Hbvsij [Moles/Vol]138 mmol/P264-632RhuakhgkzSt. Rita'S HospitalComment on above:Performed By: #### LIPID, [id number], T4F, TSH3, CBC, RETIC, CMP wRFX A1C, MG, FE and TIBC, JARED #### [facility] [address] [place] [address] USAThyrotropin [Units/volume] in Serum or PlasmaOrdered By: Rayne Patino on 51-89-4429YCS Qn1.96 m[IU]/L0.45-5.33St. Rita'S HospitalComment on above:Result Comment: PERFORMED BY: [place] [address] PATHOLOGIST MANAGER NURSING APRIL MELCHOR M.D.Performed By: #### RESP PANEL UPP., BIOFIRECOVDET #### [facility] [address] [place] [address] USAThyroxine (T4) free [Mass/volume] in Serum or Plasma Ordered By: Rayne Patino on 94-43-2272Ptvg T4 [Mass/Vol]0.85 ng/dL0.61-1.12 [facility] Rita'S HospitalComment on above:Performed By: #### RESP PANEL UPP., BIOFIRECOVDET #### [facility] [address] [place] [id number] USATransferrin [Mass/volume] in Serum or PlasmaOrdered By: Raynejuju Patino on 68-03-7692Wfhnuxxsrqg [Mass/Vol]342 mg/bK785-277CzgtepobiSt. Rita'S HospitalComment on above:Performed By: #### LIPID, [id number], T4F, TSH3, CBC, RETIC, CMP wRFX A1C, MG, FE and TIBC, JARED #### [facility] [address] [place] [address] USATriglyceride [Mass/volume] in Serum or PlasmaOrdered By: Rayne Sukumar on 86-51-4210Vybhjvaosrmx [Mass/Vol]52 mg/dL0-149St. Rita'S HospitalComment on above:TRIG ATP III CLASSIFICATIONTRIG less than 150 mg/dL NormalTRIG 150-199 mg/dL Borderline highTRIG 200-500 mg/dL High TRIG greater than 500 mg/dL Very highStandard traceable to the Center for Disease Conrtrol and Prevention (CDC) test method.Urea nitrogen [Mass/volume] in Serum or PlasmaOrdered By: Rayne Sukumar on 39-00-6195Wdyo nitrogen [Mass/Vol] 12 mg/dL7-25St. Rita'S HospitalComment on above:Performed By: #### LIPID, [id number], T4F, TSH3, CBC, RETIC, CMP wRFX A1C, MG, FE and TIBC, JARED #### [facility] [address] [place] [address] USAVit. B12/Folate Profileon 85-57-1519Rmiwax5.2 ng/mLNormal >5.9The [facility] Health Care Physician GroupComment on above:Result Comment: Folate reference range: >5.9 ng/ml The WHO technical consultation on folate and vitamin b12 deficiencies has determined that folate concentrations less than 4 ng/ml are considered deficient.Performed By: #### RESP PANEL UPP., BIOFIRECOVDET #### [place] [address] USAVitamin B12 ser/plasOrdered By: Rayne Patino on 45-28-0614Omaonftuo (Vitamin B12) [Mass/Vol]223 pg/iD955-301Bzxsfbwpa[address] [place], [place] [address]Comment on above:Performed By: #### RESP PANEL UPP., BIOFIRECOVDET #### [facility] [address] [place] [address] USAXR chest 2V*on 53-95-1798OA chest 2V*[facility] [place] [address] [place] [address] XRay Report Signed Patient: Sherrell Clark MR#: [id number] : 2000 Acct:[id number] Age/Sex: 23 / F ADM Date: 10/26/24 Loc: ER Room: Type: [facility] ER Attending Dr: Copies to: Abigail Freitas APRN Ordering Provider: Abigail Freitas APRN Date of Service: 10/26/24 XR/XR chest 2V*: Shortness of Breath/Dyspnea XR chest 2V* 10/26/2024 8:18 PM SIGNS AND SYMPTOMS: Shortness of breath, cough, fever, fatigue PROTOCOL: Frontal and lateral radiographs of the chest COMPARISON: None FINDINGS: The trachea is midline. The heart and mediastinal structures are within normal limits. The lung parenchyma is clear. The bony thorax is intact. XR/XR chest 2V* IMPRESSION: No acute cardiopulmonary pathology. Impression dictated by: Melvin Verma M.D.10/27/2024 5:24 AM Dictation Location: [place] [address] Transcribed By: [facility] 10/27/24523 Dictated By: Melvin Verma II, MD 10/27/2421 Signed By: 10/27/2424[facility] Detectedon 10-26-2024 BioFire DetectedDetectedCritically abnormalNot DetecteThe Formerly [facility] Health Care Physician GroupComment on above:Result Comment: This is a duplicate RP2.1 COVID (PCR) result to be used for statistical tracking purpose only. PERFORMED BY: [place] [address] PATHOLOGIST MANAGER NURSING RONALDO DIAL M.D.Performed By: #### RESP PANEL UPP., BIOFIRECOVDET #### [place] [address] USAECG 12 lead ECGon 20-79-7330LSZ 12 lead ECGOHIO [facility] [place] [address] [place] [address] Electrocardiograph Report Signed Patient: Sherrell Clark MR#: [id number] : 2000 Acct:[id number] Age/Sex: 23 / F ADM Date: 10/26/24 Loc: ER Room: Type: [facility] ER Attending Dr: Ordering Provider: Abigail Freitas APRN Date of Service: 10/26/2407/12/2015 ECG/ECG 12 lead ECG: Shortness of Breath/Dyspnea Copies to: Test Reason : Blood Pressure : 131/67 mmHG Vent. Rate : 125 BPM Atrial Rate : 125 BPM P-R Int : 124 ms QRS Dur : 74 ms QT Int : 288 ms P-R-T Axes : 75 83 53 degrees QTcB Int : 415 ms Sinus tachycardia Otherwise normal ECG No previous ECGs available Confirmed by ALEXANDRIA TORRES DO ([id number]) on 10/27/2024 5:51:27 AM Referred By: Electronically Signed By: ALEXANDRIA TORRES DO Transcribed By: MUS Signed By Alexandria Torres DO 10/27 0551NoSelect [facility]ty Hospital [facility] Physician GroupRespiratory (Upper) Panel, PCRon 95-58-9011Swgzkdiaaqg (Upper) Panel, PCRAdenovirus Not detected Bordetella parapertussis Not detected Chlamydia pneumoniae Not detected Coronavirus 229E Not detected Coronavirus HKU1 Not detected Coronavirus NL63 Not detected Coronavirus OC43 Not detected Influenza A Not detected Influenza B Not detected Human Metapneumovirus Not detected Mycoplasma pneumoniae Not detected Parainfluenza Virus 1 Not detected Parainfluenza Virus 2 Not detected Parainfluenza Virus 3 Not detected Parainfluenza Virus 4 Not detected Bordetella pertussis-ptxP Not detected Human Rhino/Enterovirus Not detected Resp. Syncytial Virus Not detected COVID19 Blank Space COVID19 Det Results Detected results will only be called to COVID19 Det Results Providers for Inpatients. COVID19 Blank Space COVID-19 Detected/Not Detected Detected Blank Space FLUA TEST INCLUDES Influenza A tests for the following clinically FLUA TEST INCLUDES significant subtypes: FLUA TEST INCLUDES - Influenza A FLUA TEST INCLUDES - Influenza A H1 FLUA TEST INCLUDES - Influenza A H1 2008 FLUA TEST INCLUDES - Influenza A H3 Blank Space PERFORMED BY: [facility] [address] [facility] [address] PATHOLOGIST MANAGER NURSING RONALDO DIAL M.D.[facility] Physician GroupComment on above: Performed By: #### RESP PANEL UPP., BIOFIRECOVDET #### [facility] [address] [place] [address] USAAmbulatory Visit Summaryon 01-69-5484Rnruidlfjp Visit Summary SHERRELL CLARK :2000 Visit Date:12/17/2023 Ambulatory Visit Instructions Your Diagnosis LLQ abdominal pain Constipation Your Care Team Attending Physician - Nelsy YEBOAH, Jai Franks Primary Care Physician - James Mcqueen DO This Is Your Medications List polyethylene glycol 3350 (Miralax 3350 17 gram packet) Contact prescribing physician if questions or concerns lamotrigine quetiapine (Seroquel) Discharge Vitals Heart Rate (Peripheral) 68 Respiratory Rate 16 Blood Pressure 108/72 Height 160 cm Height 63 in Weight 60 kg Weight 132 lb BMI 23.44 What to do next Scheduled Follow-Up Appointments Sunday 8:15 AM EDT With: Nelsy YEBOAH, Jai Franks [facility] Interpretation Code LLQ abdominal pain, Print Label By Order Location\.br\ Comprehensive Metabolic Panel, Blood, Routine collect, 12/17/23, Order for future visit, Lab Collect, LLQ abdominal pain, Print Label By Order Location\.br\ Thyroid Stimulating Hormone, Blood, Routine collect, 12/17/23, Order for future visit, Lab Collect, LLQ abdominal painCarolinas Continuecare Hospital [facility] HospitalG[facility] Office/Clinic Note on 19-44-3380Tqnmgytmzdzhakon Office/Clinic NoteChief Complaint ref by Kathe- LLQ pain and constipation HPI Staff This is a 23 year old female who presents today for a referral by Kathe for complaints of LLQ abdominal pain and constipation. Abdominal pain: When did you first have this pain: over a year ago Quality (sharp, dull): when constipation is present the pain is sharp Constant or comes or go: comes and goes location and radiation: LLQ pain Relation to food: no Improving or worsening factors factors: no Previous work up: Labs: none EGD: none Colonoscopy: none Imaging: none Constipation: How many BM a day or a week: 4-5 a day when not constipated Constant? Or alternate with normal BM or diarrhea: constipation and diarrhea What treatment have you tried before: -Fibers - no -Senna - no -Milk of magnesia - no -Linzess (Linaclotide) - no -Amitiza (lubiprostone) - no -Motegrity (Prucalopride) - no Previous testing: TSH- no Celiac panel- no Rectal manometry: none History of Present Illness alternating diarrhea and constipation over a week : 4 days diarrhea, then can have short Review of Systems PHQ Score Initial Depression Screen Score: 0 SCORE Physical Exam Vitals & Measurements HR: 68(Peripheral) RR: 16 BP: 108/72 HT: 63 in HT: 160 cm WT: 60 kg WT: 132 lb BMI: 23.44 Assessment/Plan 1. LLQ abdominal pain (R10.32: Left lower quadrant pain) Likely associated with the constipation 2. Constipation (K59.00: Constipation, unspecified) Once a week or less, outside that normal bowel movements 3-4 times a day did not try treatment yet Suggested lifestyle modifications, kiwi or prunes, fiber Citrucel MiraLAX as needed Will get basic labs including celiac, return to clinic in 3 months or sooner if needed Follow-up No qualifying data available Problem List/Past Medical History Ongoing No chronic problems Historical No qualifying data Medications lamotrigine, Oral Seroquel, Oral Allergies Zofran (Hives) Social History Tobacco Never (less than 100 in lifetime) Tobacco Use:. Never Smokeless Tobacco Use:., 12/17/2023 Immunizations Vaccine Date Status Comments influenza virus vaccine, inactivated - Not Given Patient Refuses diphtheria/pertussis, acel/tetanus ped 12/20/2022 Recorded SARS-CoV-2 (COVID-19) mRNA BNT-162b2 vax 11/02/2021 Recorded SARS-CoV-2 (COVID-19) mRNA BNT-162b2 vax 05/03/2021 Recorded SARS-CoV-2 (COVID-19) mRNA BNT-162b2 vax 04/12/2021 Recorded meningococcal conjugate vaccine 06/23/2016 Recorded diphtheria/pertussis, acel/tetanus adult 05/19/2011 Recorded meningococcal conjugate vaccine 05/19/2011 Recorded influenza virus vaccine, inactivated 09/22/2006 Recorded influenza, whole 09/09/2005 Recorded poliovirus vaccine, inactivated 07/14/2004 Recorded measles/mumps/rubella virus vaccine 07/14/2004 Recorded DTaP, unspecified formulation 07/14/2004 Recorded poliovirus vaccine, inactivated 11/25/1999 Recorded measles/mumps/rubella virus vaccine 11/25/1999 Recorded DTaP, unspecified formulation 11/25/1999 Recorded hepatitis B pediatric vaccine 05/20/1999 Recorded Hib, unspecified formulation 05/20/1999 Recorded DTaP, unspecified formulation 05/20/1999 Recorded Hib, unspecified formulation 03/22/1999 Recorded DTaP, unspecified formulation 03/22/1999 Recorded hepatitis B pediatric vaccine 01/18/1999 Recorded Hib, unspecified formulation 01/18/1999 Recorded DTaP, unspecified formulation 01/18/1999 Recorded hepatitis B pediatric vaccine 1998 RecordedNoWVUMedicine Harrison Community HospitalComment on above:Result Comment: Electronically Signed By: Nelsy YEBOAH, Jai Franks\.br\Date and Time Signed: 12/17/23 08:55 ESTPhysician Referralon 36-94-4863Idsxocptz [id number]#1.00TIFF [facility]ullPAP ACOG PANEL 2: 21 to 29on 02-28-2023..Normal Madison HealthComment on above:Performed By: #### [id number] #### [facility] [address] [place] [address] Dr. Rob White Gdln ACOG Kaojnvo34-86ZwsufwJzpCity HospitalComsinai-grace hospital on above:Performed By: #### [id number] #### [facility] [address] [place] [address] Dr. Rob EtienneDIAGNOSIS:CommentParma Community General Hospital on above: Result Comment: NEGATIVE FOR INTRAEPITHELIAL LESION OR MALIGNANCY.Performed By: #### [id number] #### [facility] [address] [place] [address] Dr. Rob EtienneMethodology:CommentParma Community General Hospital on above: Result Comment: This liquid based ThinPrep(R) pap test was screened with the use of an image guided system.Performed By: #### [id number] #### [facility] [address] [place] [address] Dr. Rob EtienneNote:CommentParma Community General Hospital on above:Result Comment: The Pap smear is a screening test designed to aid in the detection of premalignant and malignant conditions of the uterine cervix. It is not a diagnostic procedure and should not be used as the sole means of detecting cervical cancer. Both false-positive and false-negative reports do occur. .Performed By: #### [id number] #### [place] [address] Dr. Rob EtiennePerformed by:[facility] on above: Result Comment: Jinny Davis, Tobacco Checkout Clerk (ASCP)Performed By: #### [id number] #### [facility] [address] [place] [address] Dr. Rob EtienneReflex Criteria:CommentParma Community General Hospital on above:Result Comment: The HPV DNA reflex criteria were not met with this specimen result therefore, no HPV testing was performed. .Performed By: #### [id number] #### [place] [address] Dr. Rob EtienneSpecimen adequacy:CommentParma Community General Hospital on above:Result Comment: Satisfactory for evaluation. Endocervical and/or squamous metaplastic cells (endocervical component) are present.Performed By: #### [id number] #### [place] [address] Dr. Rob Alvarado SERUMon 62-65-4448Kibcgbahhekwzjijehtwwx (DHEA)810 ng/dL Critically cume16-042Znm [facility] on above:Result Comment: Age 1 - 5 years 0 - 67 6 - 7 years 0 - 110 8 - 10 years 0 - 185 11 - 12 years 0 - 201 13 - 14 years 0 - 318 15 - 16 years 39 - 481 17 - 19 years 40 - 491 >19 years 31 - 701Performed By: #### DHEA. #### [facility] [address] [place] [address] Dr. Rob Alvarado-SULFATEon 40-02-5370JWIH-Sjfuztw598.0 ug/mLFryjsz505.0-431.7 The [facility] on above:Performed By: #### DHEASUL #### [facility] [address] [place] [address] Dr. Rob Berry 24-28-4639WFC7.2 mIU/mLNormalMadison HealthComment on above:Result Comment: Adult Female: Follicular phase 3.5 - 12.5 Ovulation phase 4.7 - 21.5 Luteal phase 1.7 - 7.7 Postmenopausal 25.8 - 134.8Performed By: #### LBCFSH #### [facility] [address] [place] [address] Dr. Rob EtienneLUTEINIZING HORMONE (LH)on 73-68-9800OF4.3 mIU/mLNormalMadison HealthComment on above:Result Comment: Adult Female: Follicular phase 2.4 - 12.6 Ovulation phase 14.0 - 95.6 Luteal phase 1.0 - 11.4 Postmenopausal 7.7 - 58.5Performed By: #### LBCLH #### [facility] [address] [place] [address] Dr. Rob Linda AUTO DIFFon 20-14-6777XXLG #0.0 103/ulNormal0.0-0.1Madison HealthComment on above:Performed By: #### CBC #### [facility] [address] [place] [address] Dr. Rob EtienneBasophils/100 WBC (Bld)0.4 %Normal0.2-2.0[facility] Comment on above:Performed By: #### CBC #### [facility] [address] [place] [address] Dr. Rob Knott #0.1 103/ulNormal0.0-0.7The [facility] ToledoComment on above: Performed By: #### CBC #### [facility] [address] [place] [address] Dr. Rob Fernandesosinophils/100 WBC (Bld)1.8 %Normal0.9-7.0The [facility] Comment on above:Performed By: #### CBC #### [facility] [address] [place] [address] Dr. Yilan ChangErythrocyte distribution width (RBC) [Ratio]12.8 %Kewycs46.0-15.0 The [facility] Hospital ToledoComment on above:Performed By: #### CBC #### [facility] [address] [place] [address] Dr. Rob EtienneHematocrit (Bld) [Volume fraction]42.6 %Kkbcki61.0-48.0The [facility] ToledoComment on above:Performed By: #### CBC #### [facility] [address] [place] [address] Dr. Rob EtienneHemoglobin (Bld) [Mass/Vol]14.3 g/zPPrypwh75.0-16.0The [facility] ToledoComment on above:Performed By: #### CBC #### [facility] [address] [place] [address] Dr. Rob Marsh #0.01 10e3/ulNormal0.00-0.03The [facility] ToledoComment on above:Performed By: #### CBC #### [facility] [address] [place] [address] Dr. Rob Marsh %0.2 %Normal0.0-0.5The [facility] ToledoComment on above: Performed By: #### CBC #### [facility] [address] [place] [address] Dr. Rob Garduno #1.8 103/ulNormal1.2-3.8The [facility] ToledoComment on above:Performed By: #### CBC #### [facility] [address] [place] [address] Dr. Rob Murdockmphocytes/100 WBC (Bld)32.2 %Zgtqvo25.5-60.0The [facility] ToledoComment on above:Performed By: #### CBC #### [facility] [address] [place] [address] Dr. Rob HellerUAL DIFF REQNONormalThe [facility] Hospital ToledoComment on above: Performed By: #### CBC #### [facility] [address] [place] [address] Dr. Rob Meeks (RBC) [Entitic mass]29.3 doDmhwid44.7-34.0The [facility] ToledoComment on above:Performed By: #### CBC #### [facility] [address] [place] [address] Dr. Rob Morales (RBC) [Mass/Vol]33.6 g/bIXvzhhi44.9-35.2The [facility] ToledoComment on above:Performed By: #### CBC #### [facility] [address] [place] [address] Dr. Rob Morales (RBC) [Entitic vol]87.3 gFShyjrc82.0-99.0The [facility] ToledoComment on above:Performed By: #### CBC #### [facility] [address] [place] [address] Dr. Rob Harris #0.2 103/ulCritically low0.3-0.8The [facility]edoComment on above:Performed By: #### CBC #### [facility] [address] [place] [address] Dr. Rob Zaidiocytes/100 WBC (Bld)3.9 %Normal1.7-12.0The [facility] Comment on above:Performed By: #### CBC #### [facility] [address] [place] [address] Dr. Rob Gonzales #3.4 103/ulNormal1.4-6.5The [facility]edoComment on above:Performed By: #### CBC #### [facility] [address] [place] [address] Dr. Rob Wardutrophils/100 WBC (Bld)61.5 %Bfggev23.0-75.0The [facility] ToledoComment on above:Performed By: #### CBC #### [facility] [address] [place] [address] Dr. Rob Holet mean volume (Bld) [Entitic vol]10.4 fLNormal9.5-13.5The [facility]edoComment on above:Performed By: #### CBC #### [facility] [address] [address] [address] Rob EtiennePLT213 103/jjOdybkm936-976Lju [facility]edoComment on above: Performed By: #### CBC #### [facility] [address] [place] [address] Dr. Rob EtienneRBC4.88 106/ulNormal4.20-5.40The [facility]edoComment on above:Performed By: #### CBC #### [facility] [address] [place] [address] Dr. Rob EtienneWBC5.4 103/ulNormal4.0-11.0The [facility]edoComment on above: Performed By: #### CBC #### [facility] [address] [place] [address] Dr. Rob EtienneGLYCOHEMOGLOBIN A1Con 72-85-6183JGF RECOMMENDATIONSEE BELOWNormal [facility] on above:Result Comment: ADA RECOMMENDED LIMIT 4.0 - 6.0 ADA THERAPEUTIC TARGET < 7.0 ACTION SUGGESTED > 7.0Performed By: #### A1C #### [facility] [address] [place] [address] Dr. Rob EtienneGlucose [Mass/Vol]94 mg/dLNormalThe [facility] on above:Performed By: #### A1C #### [facility] [address] [place] [address] Dr. Rob EtienneHbA1c (Bld) [Mass fraction]4.9 %Normal4.5-6.2The [facility] on above:Performed By: #### A1C #### [facility] [address] [place] [address] Dr. Rob EtienneTSHojulia 57-23-7874KWJ3.052 uIU/mLNormal0.358-3.740The [facility] on above:Performed By: #### TSH #### [facility] [address] [place] [address] Dr. Rob Madera ( test) IA.rapid Ql (U)Ordered By: Matthieu Beltre on 57-63-2373CLE ( test) Ql (U)NegativeSt. [facility] TSH DL <= 0.005 mIU/L QnOrdered By: Matthieu Patt on 53-58-8592JQR Qn1.40 m[IU]/L0.45-5.33[facility] Vital Signs Date TimeVital SignValuePerforming DmdzuvkapNuwdgxqz26-90-1107 14:56-0400Body outevr191 cmCorey Mouna DO Work Phone: [facility] CenterRjhggryxpc73-85-5511 14:56-0400Body mass index (BMI) [Ratio]22.16 kg/q3Bptpd Mouna DO Work Phone: [facility] CenterShuggbqgnd00-26-9675 14:56-0400Body tvwoyr07.75 kgCorey Mouna DO Work Phone: [facility] CenterThgwstyfng25-93-5937 14:56-0400Diastolic blood wrgrsuxs64 mm[Hg]Isai Mouna DO Work Phone: [facility] CenterFylyyakusm69-90-0711 14:56-0400Systolic blood ihbymrdc330 mm[Hg]Isai Mouna DO Work Phone: [facility] CenterUuapfiivko95-86-1341 08:35-0400Body wqhpze217.02 cmSamantha Sukumar DO Work Phone: [phone]10-24-2025 08:35-0400 Body mass index (BMI) [Ratio]22.1 kg/d8Isglzmag Sukumar DO Work Phone: [facility]10-24-2025 08:35-0400 Body drzgty78.69 kgSamantha Sukumar DO Work Phone: [phone] [place], [place] 6105210-24-2025 08:35-0400 Diastolic blood kowuryje12 mm[Hg]Rayne Sukumar DO Work Phone: [phone] [place], [place] 6105210-24-2025 08:35-0400 Heart rate75 /minSamantha Sukumar DO Work Phone: [phone] [place], [place] 6105210-24-2025 08:35-0400 SaO2% (BldA) [Mass fraction]100 %Rayne Sukumar DO Work Phone: [phone] [place], [place] 6105210-24-2025 08:35-0400 Systolic blood lypaxafa033 mm[Hg]Rayne Sukumar DO Work Phone: [phone] [place], [place] 6105209-22-2025 15:30-0400 Body vchnio413 cmCorey Mouna DO Work Phone: [facility] CenterWcsuwtapzw57-59-0800 15:30-0400Body mass index (BMI) [Ratio]22.32 kg/q9Mzhyq Mouna DO Work Phone: [facility] CenterTqeeoejctb26-62-9382 15:30-0400Body noibtj67.15 kgCorey Mouna DO Work Phone: [facility] CenterHcpzwlitfg73-78-1527 15:30-0400Diastolic blood gjfolafj31 mm[Hg]Isai Mouna DO Work Phone: [facility] CenterAcqnbhrcwr87-71-7946 15:30-0400Systolic blood iqiclaqo418 mm[Hg]Isai Mouna DO Work Phone: [facility] CenterSsltuckkzw50-93-8157 08:03-0400Body esgkbr260.02 cmSjanki Williamsonon DO Work Phone: [phone] [place], [place] 6105209-05-2025 08:03-0400 Body mass index (BMI) [Ratio]21.7 kg/z2Xecwewwc Sukumar DO Work Phone: [phone] [place], [place] 6105209-05-2025 08:03-0400 Body cacixg73.79 kgSayusef Williamsonon DO Work Phone: [phone] [place], [place] 6105209-05-2025 08:03-0400 Diastolic blood cflhfufl69 mm[Hg]Rayne Sukumar DO Work Phone: [phone] [place], [place] 6105209-05-2025 08:03-0400 Heart rate89 /minSamantha Sukumar DO Work Phone: [facility]09-05-2025 08:03-0400 SaO2% (BldA) [Mass fraction]98 %Rayne Sukumar DO Work Phone: [facility]09-05-2025 08:03-0400 Systolic blood qexawmxi480 mm[Hg]Rayne Sukumar DO Work Phone: [facility]01-29-2024 08:14-0500 Blood Pressure LocationMuhammad Sarmini [phone]-BsbykL[facility]01-29-2024 08:14-0500Diastolic blood jeptuchz75 mm[Hg]Vergara Sarmini [phone]-OsgbsLancaster Municipal Hospital01-29-2024 08:14-0500Heart rate68 /minMuhammad Sarmini [phone]-GwlxnL[facility]01-29-2024 08:14-0500Respiratory rate16 /minMuhammad Sarmini [phone]-UqvzwL[facility]aster Municipal Hospital01-29-2024 08:14-0500Systolic blood iljrqsdd351 mm[Hg]Vergara Sarmini [phone]-VambwLancaster Municipal Hospital12-01-2023 12:00-0500Body hvskaq330.02 cmJames Mcqueen Other [facility] Other 12-01-2023 12:00-0500Body mass index (BMI) [Ratio]23.2 kg/u2SwafrJames Mcqueen Other [facility] Other 12-01-2023 12:00-0500Body peuayjgckiy78.2 [degF]James Mcqueen Other [facility] Other 12-01-2023 12:00-0500Body sinadi39.42 kgDarodno Mcqueen Other [facility] Other 12-01-2023 12:00-0500Diastolic blood mm[Hg] James Mcqueen Other [facility] Other 12-01-2023 12:00-0500Respiratory rate16 /minDavino Mcqueen Other [facility] Other 12-01-2023 12:00-7866NjW0% (BldA) [Mass fraction]98 % James Mcqueen Other [facility] Other 12-01-2023 12:00-0500Systolic blood qjrnrqyp439 mm[Hg] James Mcqueen Other [facility] Other Encounters Encounter DateEncounter TypeCare ProviderFacilityStart: 09-14-2025 End: 28-82-1777Cncojyh encounter procedureCorey Mouna DO Work Phone: [facility]oms HealthcareStart: 09-14-2025 End: 55-00-8341Xrbqthnh preventive med est patient 18-39 yrsCorey Mouna DO Work Phone: [facility] [place] OBGYNComment on above:Pre-op examination; Well woman exam with routine gynecological exam; Pelvic pain in female; Menorrhagia with regular cycleStart: 09-14-2025 End: 61-50-3101Dyrsqlvvqqnnn examination doneCorey Mouna DO Work Phone: [facility] HealthcareStart: 09-14-2025 End: 14-17-9843iutrzzkwomFSGGM FAZIONot AvailableStart: 09-14-2025 End: 59-06-0142Amfbnm flowsheetCorey Mouna DO Work Phone: no [place] OBGYNStart: 09-14-2025 End: 53-07-3344Irfmer flowsheetCorey Mouna DO Work Phone: no [place] OBGYNStart: 09-14-2025 End: 66-15-3199Jantljfgs Result EncounterCorey Mouna DO Work Phone: [facility] External Department UnsolicitedStart: 09-11-2025 End: 20-77-3126hinmozpizpMxovcinm J Sukumar KOENIG Work Phone: -[facility] PCStart: 09-11-2025 End: 81-53-6911Csoyyba encounter procedureSjanki Patino -[facility] Work Phone: Start: 08-10-2025 End: 44-56-8645Qnwbhk outpatient visit 15 minutesCorey Mouna DO Work Phone: no [place] OBGYNComment on above:Constipation, unspecified constipation type (Primary Dx); Menorrhagia with regular cycle; Painful menstrual periods; Nausea and vomiting, unspecified vomiting type; Intractable menstrual migraine with status migrainosusStart: 08-10-2025 End: 80-81-8771lvfkwgcfniORCPC FAZIONot AvailableStart: 08-10-2025 End: 72-71-6112Anosco flowsheetCorey Mouna DO Work Phone: NO [place] OBGYNStart: 08-10-2025 End: 04-41-5653Gljzhk flowsheetCorey Mouna DO Work Phone: [facility] [place] [facility]BGYNStart: 08-01-2025 End: 25-81-0846Oxcvphr encounter procedureSjanki Patino DO-[facility] Work Phone: Start: 08-01-2025 End: 86-56-2194bgjdbrwwjcKeejcbel J Sukumar DO Work Phone: [facility] Work Phone: Start: 07-24-2025 End: 33-23-1126ugbnslikkbHdtjhkrt J Mason DO Work Phone: [facility] Work Phone: Start: 07-24-2025 End: 96-36-9734Qukfexe encounter procedureSjanki Patino DO-[facility] Work Phone: Start: 10-26-2024 End: 04-11-0273Aycibfeoq department patient visitCorenny Freitas Facility:[facility]art: 03-17-2024 End: 98-42-2145mhnqcmkfdeEzhdyqli Talal SarminiFacility:[facility] DHStart: 03-17-2024 End: 38-29-4880Ckhldiv encounter procedureMuhammad Talal Sarmini [phone]-BujjzTog[facility] Start: 12-17-2023 End: 02-18-7447vzrmynfkafJfdbnrvk Talal SarminiFacility:[facility] DHStart: 12-17-2023 End: 89-05-2418Gwwdeod encounter procedureMuhammad Talal Sarmini [phone]-MaeaeTogus Va [facility] Center [facility] Start: 61-58-6974abeotalccxGherpvnn Sarmini Facility:[facility] DHStart: 10-19-2023 End: 84-31-4179stwxounjcpEcknc Girvin Other [employer] Other Start: 73-97-7775Izdfabuvk for general adult medical examination without abnormal findingsruddy [facility] [place] Start: 61-64-9593Xsmetfgr preventive med est patient 18-39 yrsDavino ReaTexoma Medical Center BellevueStart: 02-22-2023 End: 09-08-1946esuzqaymmmGKE MATT .Facility:Z2Sqpvf: 07-31-2022 End: 77-25-7340juwjtlhzyfPQ COREY FAZIO .Facility:U1Kfcfs: 07-26-2022 End: 41-39-3855Qjjhzuzp ReferredDO Matthieu Beltre Work Phone: [facility] Procedures DateProcedureProcedure DetailPerforming ClinicianStart: 19-68-2241PGM,APTIMA HPV,AGE GDLNCorey Mouna DO Work Phone: Plan of Treatment DateCare ActivityDetailAuthorStart: 12-15-2025 End: 88-45-4001Fokfkkz encounter fygcqkwhr05/27/2026 8:30 AM EST Procedure Visit NOMLeigh Ann AGUILA [address] [place] [phone] Isai Freire, DO [address] [place] [address] N[facility] OBGYNStart: 10-19-2025 End: 37-97-0432Tnytmob encounter /01/2025 4:00 PM EST Office Visit NOMLeigh Ann AGUILA [address] [place] [phone] Marisel Carrizales PA [address] [place] [address] [facility] [place] OBGYNStart: 09-14-2025 End: 03-47-2750Fzyieiv encounter procedureNOMS Getachew OBGYNComment on above: ArrivedStart: 08-10-2025 End: 31-57-4974Lcyzzhp encounter mzsrfcylh60/22/2025 3:10 PM EDT Office Visit NOMLeigh Ann AGUILA [address] [facility] [phone] Isai Freire, DO [address] [place], [place] [address] Desi [place] OBGYNComment on above:ArrivedStart: 08-10-2025 End: 21-57-1611BJ PelvisUS Pelvis w/ TV Imaging Routine Menorrhagia with regular cycle Painful menstrual periods Expected: 08/10/2025, Expires: 02/07/2026[facility] Work Phone: comment on above:Expected: 08/10/2025, Expires: 02/07/2026Start: 62-59-8434NJWDU-19 Vaccine ( season)COVID-19 Vaccine ( season)NOM HealthcareStart: 46-66-7590Uzmzgmaez vaccination Influenza Vaccine (#1)NOM HealthcareStart: 43-20-2140Dfpecakon B Vaccines (1 of 3 - 19+ 3-dose series)Hepatitis B Vaccines (1 of 3 - 19+ 3-dose series)NOM HealthcareStart: 66-19-9952XDJ Vaccines (1 - 3-dose series)HPV Vaccines (1 - 3- dose series)NOM HealthcareStart: 60-76-6707Drwyoae of varicella vaccination Varicella Vaccines (1 of 2 - 13+ 2-dose series)NOM HealthcareStart: 2005 DTaP/Tdap/Td Vaccines (1 - Tdap)DTaP/Tdap/Td Vaccines (1 - Tdap)[facility] Start: 92-40-5722JOY Vaccines (1 of 1 - Standard series)MMR Vaccines (1 of 1 - Standard series)[facility] CenterCytology Cervical or vaginal smear or scraping studyPap Smear Pathology and Cytology Routine Pre-op examination Ordered: 09/14/2025[facility] [employer] Work Phone: comment on above:Ordered: 09/14/2025 Immunizations Immunization DateImmunizationNotesCare WypxtxvtCenouovx23-18-9815svpbpqkjdv, tetanus toxoids and acellular pertussis vaccineJai Whittington [phone]-SbyfoTogus Va Medical Center Digestive Nmcuux35-40-6311 SARS-CoV-2 (COVID-19) mRNA BNT-162b2 vaxMugaetano Whittington [phone]-Zdavf[address] [place], [place] 1304006-15-2021 SARS-CoV-2 (COVID-19) mRNA BNT-162b2 vaxMuhammad Sarmini [phone]-Ejllc[address] [place], [place] 1304005-25-2021 SARS-CoV-2 (COVID-19) mRNA BNT-162b2 vaxMuhammad Sarmini 566-9930Gjcybh-Fmarm[address] [place], [place] 1304008-05-2016 meningococcal ACWY vaccine, unspecified formulationMuhammad Sarmini 206-0025Kysycb-Gwbdr[address] [place], [place] 1304007-01-2011 meningococcal ACWY vaccine, unspecified formulationMuhammad Sarmini [phone]-Oelqc[address] [place], [place] 1304007-01-2011 tetanus toxoid, reduced diphtheria toxoid, and acellular pertussis vaccine, adsorbedMuhammad Sarmini 747-2523Hahwkc-Cjwox[address] [place], [place] 1304011-04-2006 influenza virus vaccine, unspecified formulationMuhammad Sarmini 118-5148Fnvfhf-Tloiw[address] [place], [place] 1304010-22-2005 influenza, wholeMuhammad Sarmini [phone]-Irsby[address] [place], [place] 1304008-26-2004 DTaP, unspecified formulationMuhammad Sarmini [phone]-Ahueo[address] [place], [place] 1304008-26-2004 measles, mumps and rubella virus vaccineMuhammad Sarmini [phone]-Dzfen[address] [place], [place] 1304008-26-2004 poliovirus vaccine, unspecified formulationMuhammad Sarmini 405-4411Bpmweu-Ukche[address] [place], [place] 1304001-07-2000 DTaP, unspecified formulationMuhammad Sarmini [phone]-Hzgxs[address] [place], [place] 1304001-07-2000 measles, mumps and rubella virus vaccineMuhammad Sarmini 545-2057Onbuft-WgndaTogus Va Medical Center [facility]estive Hkecxm87-26-8075 poliovirus vaccine, unspecified formulationMuhammad Sarmini [phone]-ClkubL[facility] Hospital07-02-1999 DTaP, unspecified formulationMuhammad Sarmini 454-7232Gwyppv-WlftaLancaster Municipal Hospital07-02-1999 hepatitis B vaccine, pediatric or pediatric/adolescent dosageMuhammad Sarmini [phone]-MtucqLancaster Municipal Hospital07-02-1999 Hib, unspecified formulationMuhammad Sarmini [phone]-CikmbL[facility]aster Municipal Hospital05-04-1999 DTaP, unspecified formulationMuhammad Sarmini [phone]-CilrjLancaster Municipal Hospital05-04-1999 Hib, unspecified formulationMuhammad Sarmini [phone]-Zffud[address] [place], [place] 1304003-02-1999 DTaP, unspecified formulationMuhammad Sarmini [phone]-RojczLancaster Municipal Hospital03-02-1999 hepatitis B vaccine, pediatric or pediatric/adolescent dosageMuhammad Sarmini [phone]-LyzwuLancaster Municipal Hospital03-02-1999 Hib, unspecified formulationMuhammad Sarmini [phone]-Iwkct[address] [place] [address] Digestive Cfvsju56-64-4148 hepatitis B vaccine, pediatric or pediatric/adolescent dosageMuhammad Sarmini [phone]-Voxur[address] [place], [place] [address]NEGATED: Highlighted row has not occurred!11-18-2519lxjwmxxbr virus vaccine, unspecified formulationMuhammad Sarmini [phone]-Ukyww[address] [place] [address] Digestive [facility] Payers DatePayer CategoryPayerPolicy [id number] Health InsuranceMEDICAL MUTUAL [id number]-xpx [id number] [id number] 2..1.223093.3.57[id number] 2..1.736926.3.57[id number] 2..1.313170.3.57[id number] 2..1.252540.3.57[id number] 2..1.310737.3.57[id number] 2..1.12[id number] 2..1.120758.3.579.2.531 [id number] 2..1.259096.3.579.2.531 Social History DateTypeDetailFacilityTobacco smoking status NHISUnknown if ever smokedSelect Medical [facility] Work Phone: Start: 08-54-2437Jbx Assigned At [facility] Healthcaretart: 02-28-2024 End: 38-83-3937Bdw [facility] At [facility]: 05-19-2023 End: 76-89-9033Vtykrch smoking statusNever smoked tobacco (finding)[facility] Digestive HealthStart: 02-12-3912Mxfofqn smoking statusNever [facility] Digestive HealthSexFemale (finding)[facility]art: 27-83-5643Fjiyovw use and exposureSmokeless tobacco non-userNOMS HealthcareStart: 05-14-2024 End: 17-19-1008Jomwjltdm beverage intakeLifetime non-drinker (finding)[facility] HealthcareStart: 02-28-2024 End: 80-99-4477Ccrhpdq of Social functionNOMS HealthcareStart: 42-86-2451Cay [facility] at [facility]Not [facility] Functional Status NfewHezcnxpdqjCfabtwZcvmzoda84-07-0388Glvilbvbfl StatusN/[facility] Clinical Notes 10-19-2023 to 09-14-2025 Note Date & RpqtDifwWkkmpsgm64-93-7660 History of Present illness Narrative* Kisha Donovan - 09/14/2025 2:40 PM EDT Reason for Appointment: Patient ID: Sherrell Clark is a 24 y.o. female who presents [...] History: Diagnosis Date Anxiety Bacterial vaginosis Cancer ([facility]) 2003 Depression Gonorrhea 07/09/2021 Insulin resistance Ovarian cyst HISTORY PAST MEDICAL HISTORY SOCIAL HISTORY Past Medical History: Diagnosis Date Anxiety Bacterial vaginosis Cancer ([facility]) 2003 Depression Gonorrhea 07/09/2021 Insulin resistance Ovarian [...] nursing note reviewed. Exam conducted with a slab lifting engineer present. Vitals: Estimated body mass index is 22.32 kg/m as calculated from the following: Height as [...] reviewed, and patient is to proceed to [facility] OR. Follow Up: Patient is to follow up between 1-2 weeks post operative to assess proper healing and recovery fromprocedure. Documented by Macy Montano LPN on behalf of: Isai Freire DO documented in this encounterBothwell Regional Health CenterLwojidieqk58-31-7110 History of Present illness Narrative* Evangelina Wade NP - 08/10/2025 3:10 PM EDT Reason for Appointment: Patient ID: Sherrell Clark is a 24 y.o. female who presents for Menstrual Problem (Pt present today to discuss menstrual cycles.) Patient presents today for Acute Visit. MEDICATIONS Current Outpatient Medications Medication Instructions lamoTRIgine [...] Diagnosis Date Anxiety Bacterial vaginosis Cancer ([facility]) 2004 Depression Gonorrhea 07/09/2021 Insulin resistance Ovarian cyst HISTORY PAST MEDICAL HISTORY SOCIAL HISTORY Past Medical History: Diagnosis Date Anxiety Bacterial vaginosis Cancer (HCC) 2004 Depression Gonorrhea 07/09/2021 Insulin resistance Ovarian cyst Social History Tobacco Use Smoking status: Never Smokeless tobacco: Never Substance Use Topics Alcohol use: Never Drug use: Never FAMILY HISTORY No family history on file. SURGICAL HISTORY History reviewed. No pertinent surgical history. REVIEW OF SYSTEMS Review of Systems: Review of Systems Constitutional: Negative. HENT: Negative. Eyes: Negative. Respiratory: Negative. Cardiovascular: Negative. Gastrointestinal: Positive for abdominal distention. Genitourinary: Negative. Musculoskeletal: Negative. Skin: Negative. Neurological: Negative. All other systems reviewed and are negative. Hematological: Negative. Endocrine: Negative. Allergic/Immunologic: Negative. OBJECTIVE Objective: OBGyn Exam Vitals: Estimated body mass index is 22.32 kg/m as calculated from the following: Height as of this encounter: 5' 3 . Weight as of this encounter: 126 lb. BP: 110/70 Patient's last menstrual period was 08/04/2025 (exact date). ASSESSMENT & PLAN ICD-10-CM 1. Menorrhagia with regular cycle N92.0 2. Painful menstrual periods N94.6 3. Nausea and vomiting, unspecified vomiting type R11.2 4. Intractable menstrual migraine with status migrainosus G43.831 Patient with complaints of pelvic pain and bloating with concerns for endometriosis. Will schedule diagnostic lap and ultrasound. Patient to schedule Pre op appointment and annual exam. Documented by Evangelina Wade NP on behalf of: Isai Freire DO documented in this encounterBothwell Regional Health CenterEcmigjuzqc95-14-4547 Evaluation note* Diagnosis Onset Date Resolution Status Admit Date Headache acuteSeptember 2024 8:02amHistory of mood disorderacuteSeptember 2024 8:02amLightheadedacuteSeptember 2024 8:02amMenorrhagiaacuteSeptember 2024 8:02amHistory of leukemianoneactiveSeptember 2024 8:02am [facility] Work Phone: [phone]) 693-905112-01-2023 Evaluation note* Encounter Date Diagnosis Assessment Notes Treatment Notes Treatment Clinical Notes Oct, Wellness examination (ICD-10 - Z 00.00) She is here for a wellness exam today. Oct,ipolar 1 disorder (ICD-10 - F31.9)She has been seeing Elis Haines for about a year. She voices that she was referred to her by her therapist. She was diagnosed with Bipolar 1. She voices that she feels calm in her mind and cannot get things done. This does not affect her ability to work, she feels she hyper fixates on things she is working on, and she is able to get things done. She is encouraged not to stop her medications. Oct,luster headache (ICD-10 - G44.009)She voices that she has had headaches for years but the consistency is new for her. She has seen her eye doctor and her vision has not changed. She had migraines through puberty and hormone changes. She has them mostly on the left side of her face. She feels she has cluster headaches. We discussed that these can be a recurrent lifelong issue. I would like to be sure this is the right diagnosis. Idid recommend that she see a neurologist for evaluation. She does not think her current medications are causing the headaches. She has noticed if she stopped her medications it would trigger a headache. She continues to have headaches daily. She was taking up to 1600 MG of Ibuprofen and feels she has given herself a stomach ulcer, she has severe stomach pain and cannot eat very well. She was asked not to take the Ibuprofen any longer. I have low suspicion that she has a stomach ulcer based on where her pain is at. I would like to try and stop her headache with Prednisone. She is not to take any NSAID medication while on Prednisone. She can take Tylenol if needed. Side effects/risks/benefits ofmedication were reviewed. Oct,bdominal pain (ICD-10 - R10.9)She thinks she may have given herself an ulcer, her left lower abdomen hurts. If she vomits what looks like coffee grounds, or has black stools she needs to go to the ER for evaluation. She was seen in the ER two years ago for diverticular issues. She would hold her stool for hours when younger. She alternates between constipation and diarrhea now. She has been taking up to 1600 MG of Ibuprofen aday and now her stomach is hurting her, and she is having difficulty eating. She did take out gluten from her diet because it was triggering her abdominal pain. Now if she eats anything she has pain shortly after eating in the left lower quadrant. We discussed that this could be diverticulitis, or she could also be constipated. She is nauseous after she eats. She is not sure if she has to vomit or have a bowel movement after she eats. I did recommend that she see a acid wash operator to discussthis further and to discuss if she needs a colonoscopy. She is agreeable to the referral to Dr. Garner at [facility]. I did recommend that she use the suppository today and then see if she has a good bowel movement tomorrow before starting the Prednisone. She has a history of having ovarian cysts on the lower left side, she had one rupture at age 13 andthen had one on the right side. She had endometriosis when she was younger but had a scope and was told she was fine. She follows with Dr. Freire. Oct,onstipation (ICD-10 - K59.00)I did recommend that she use a glycerin suppository to help rid excess stool. Guidance is given on how to use the suppository. I did explain to her that her stomach may feel worse before it feels better. I would like her to try the suppository over the weekened as it is Sunday so if an x-ray was done today the results would not be seen until Sunday (10-22-23) [facility] Other Evaluation + Plan note Future Appointments Appointment Date:03/17/2024 08:15:00 AM Scheduled Provider:Jai Whittington MD Location:[facility] Dig[facility]ive Health Appointment Type:[facility] Follow Up Future Scheduled Tests Laboratory* Celiac Disease Comprehensive 12/17/23 * CBC w/ Auto Diff 12/17/23 * Comprehensive Metabolic Panel 12/17/23 * Thyroid Stimulating Hormone 12/17/23 [facility] Evaluation noteNo assessment information available [facility] Work Phone: Evaluation note* Diagnosis Constipation, unspecified constipation type- Primary Menorrhagia with regular cycle Painful menstrual periods Dysmenorrhea Nausea and vomiting, unspecified vomiting type Intractable menstrual migraine with status migrainosus Menstrual migraine, with intractable migraine, so stated, with status migrainosus documented in this encounter [facility]* Diagnosis Pre-op examination Well woman exam with routine gynecological exam Routine gynecological examination Pelvic pain in female Unspecified symptom associated with female genital organs Menorrhagia with regular cycle documented in this encounter [facility] general Narrative - Reported* Type Description Date Medical History ALL Medical Historyleukemia as a childSurgical Historylaproscopic for endometriosis 2016Surgical Historyport to administer medications when she had leukemia as a childHospitalization Historysee above [facility] Other Hospital course Narrative No data available for this section [facility] Hospital Discharge instructions No data available for this section [facility] Progress note No data available for this section [facility] Reason for referral (narrative)No reason for referral information availableVeterans Health Administration Work Phone: Chief Complaint and Reason for Visit Chief Complaint Fatigue, unspecified type;Hair loss Fatigue, unspe Chief Complaint Admit Date establish July 24, 2025 8:02am Chief Complaint Admit Date establish July 24, 2025 8:02am R00.2,Z13.6,R42,N92.0 August 01 8:20am Reason for Visit Admit Date Headache July 24, 2025 8:02am History of mood disorder July 24, 2025 8:02am Lightheaded July 24, 2025 8:02am Menorrhagia July 24, 2025 8:02am History of leukemia July 24, 2025 8:02am Chief Complaint Admit Date establish July 24, 2025 8:02am R00.2,Z13.6,R42,N92.0 August 01 8:20am 1 month f/u September 11, 2025 8 :29am Advance Directives Advance Directive Response Recorded Date/ Time Advance Directives No December 5:22pm Summary Purpose Family History Relationship Condition Age at Onset Recorded Date/T jamilah grandparent Unknown Reason for Referral Reason appt pt needs cons ult to evaluate cluster headaches/migraines Diagnosis 1 Cluster headache (G4 4.009) Referral Organization [facility] [place] Referring Provider First Name James Referring Provider Last Name Ronadavy Referring Provider Specialty Family Prac flores Referred Organization [facility] Referred Provider Michael Hahn Referred Address [address],[place], [place],[address] Referred Provider Specialty Neurology Referral Priority Routine General Notes PilloCherelleh 10/19/2023 12:42:35 PM > ANGIE referral form faxed with visit note, med list, demographics and insurance card. pt understands she will be contacted to schedule this appt. Reason appt pt needs cons ult to see Dr. Garner at [facility] about long standing constipation/diarrhea and abdominal pain LL Diagnosis 1 Abdominal pain (R10. 9) Referral Organization [facility] [place] Referring Provider First Name James Referring Provider Last Name Kathe Referring Provider Specialty Family Prac flores Referred Organization [facility] Referred Address [address],[place], [place],[address] Referred Provider Specialty Gastroentero logy Referral Priority Routine General Notes PilloCassSamina 10/19/2023 12:33:59 PM > referral faxed thru [facility] with visit note and insurance card. pt understands she will be contacted to schedule this appt. Additional Source Comments Care Teams (unrecognized sec tion and content) Team Status: Inactive Member Role Status Dates Matthieu Beltre DO RES Attending Provider Active Team Status: Active Member Role Status Dates Rayne Patino DO Primary Care Provider Active Team Status: Inactive Member Role Status Dates Rayne Patino DO Primary Care Provider Active Start: July 24, 2025 End: July 24, 2025Alesha Cobb ProviderActiveStart: July 24, 2025 End: July 24, 2025 Team Status: Inactive Member Role Status Dates Rayne Patino DO Primary Care Provider Active Start: August 01, 2025 End: August 01, 2025Alesha Cobb ProviderActiveStart: August 01, 2025 End: August 01, 2025Team MemberRelationshipSpecialtyStart DateEnd Date James Mcqueen MD [address] [place] [address] [place] [address] PCP - [facility]05/19/23Team MemberRelationshipSpecialtyStart DateEnd Date James Mcqueen MD [address] [place] [address] [place] [address] PCP - [facility]05/19/23 Team Status: Active Member Role/Relationship Status Dates Rayne Patino DO Primary Care Provider Active Team Status: Inactive Member Role/Relationship Status Dates Rayne Patino DO Primary Care Provider Active Start: July 24, 2025 End: July 24, 2025Sayusef Patino DOAttending ProviderActiveStart: July 24, 2025 End: July 24, 2025 Team Status: Inactive Member Role/Relationship Status Dates Rayne Patino DO Primary Care Provider Active Start: August 01, 2025 End: August 01, 2025Sayusef Patino DOAttending ProviderActiveStart: August 01, 2025 End: August 01, 2025 Team Status: Inactive Member Role/Relationship Status Dates Rayne Patino DO Primary Care Provider Active Start: September 11, 2025 End: September 11, 2025Sayusef Patino DOAttending ProviderActiveStart: September 11, 2025 End: September 11, 2025Team MemberRelationshipSpecialtyStart DateEnd Date James Mcqueen MD [address] [place] [address] [place] [address] PCP - [facility]05/19/23Team MemberRelationshipSpecialtyStart DateEnd Date James Mcqueen MD [address] [place] [address] [place] [address] PCP - GeneralFamily Medicine05/19/23 Goals (unrecognized section and content) Goals may be documented in a n alternate sectionNo Information No data available for this section No data available for this sectionGoals may be documented in an alternate sectionGoals may be documented in an alternate sectionGoals may be documented in an alternate section INFORMATION SOURCE (unrecogn ized section and content) DATE CREATED AUTHOR 03/03/2023 [facility] DATE CREATED AUTHOR AUTHOR'S ORGANIZ ATION 03/19/2024 [facility] DATE CREATED AUTHOR AUTHOR'S ORGANIZ ATION 08/14/2025 [facility] DATE CREATED AUTHOR AUTHOR'S ORGANIZ ATION 09/15/2025 [facility] EPIC REASON FOR VISIT (unrecogniz ed section and content) ReasonCommentsMenstrual ProblemPt present today to discuss menstrual cycles. ReasonCommentsGynecologic ExamPre-op VisitDx lap FOR RECORDS PERTAINING TO PATIENTS WHO ARE OR HAVE BEEN ENROLLED IN A CHEMICAL DEPENDENCY/SUBSTANCEABUSE PROGRAM, SOME INFORMATION MAY BE OMITTED. This clinical summary was aggregated from multiple sources. Caution should be exercised in using it in the provision of clinical care. This summary normalizes information from multiple sources, and as a consequence, information in this document may materially change the coding, format and clinical context of patient data. In addition, data may be omitted in some cases. CLINICAL DECISIONS SHOULD BE BASED ON THE PRIMARY CLINICAL RECORDS. [employer] provides no warranty or guarantee of the accuracy or completeness of information in this document.
--- OUTSIDE RECORDS SUMMARY | 2025-09-25 07:56 | XMS_ITS | Encounter Summary ---
Author Organization [facility] Address [address] [place] [address] Care Team Providers Care High School French Teacher Name Role Phone James Mcqueen MD Primary Care Provider [phone] Encounter Details DateTypeDepartmentCare Team (Latest Contact Info)Aenaglvtbqm67/27/2025amboo flowsheet LAM [facility] [address] [place] [address] Vicente Freire DO [address] [place] [address] Social History Tobacco UseTypesPacks/DayYears UsedDateSmoking Tobacco: NeverSmokeless Tobacco: NeverAlcohol UseStandard Drinks/WeekCommentsNever0 (1 standard drink = 0.6 oz pure alcohol)CommentsNoSex and Gender InformationValueDate RecordedSex Assigned at BirthNot on fileLegal YpzUvxhqk74/15/2023 11:09 PM EDTGender IdentityNot on fileSexual OrientationNot on filedocumented as of this encounter Plan of Treatment DateTypeDepartmentCare Team (Latest Contact Info)Daxurdjuhqv01/26/2025 2:30 PM ESTOffice Visit NOMLeigh Ann AGUILA [address] [place] [address] Marisel Carrizales PA [address] [place] [address] documented as of this encounter Visit Diagnoses Not on filedocumented in this encounter Care Teams Team MemberRelationshipSpecialtyStart DateEnd Date James Mcqueen MD [address] [place] [address] [place] [address] [place] [address] PCP - GeneralFamily Medicine05/19/23documented as of this encounter
--- OUTSIDE RECORDS SUMMARY | 2025-09-25 07:56 | XMS_ITS | Clinical Summary ---
Author Organization [facility] Address [address] [place] [address] Care Team Providers Care Hardboard Panel Printer Name Role Phone James Mcqueen MD Primary Care Provider [phone] Allergies Active AllergyReactionsCriticalityNoted DateCommentsOndansetronAnaphylaxis,Hives High05/14/2023 Other Reaction(s): anaphylaxis Medications MedicationSigDispense QuantityRefillsLast FilledStart DateEnd DateStatus QUEtiapine (SEROquel) 25 MG tablet Take by mouth12/17/2023ctive lamoTRIgine (LaMICtal) 200 MG tablet 200 mgActive metFORMIN XR (Glucophage-XR) 500 MG 24 hr tablet 500 mgActive Encounters DateTypeDepartmentCare HlztQxopjqycepv83/27/2025 2:40 PM EDTProcedure Visit [facility] [place] [address] [place] [address] Vicente Freire, Pre-op examination; Well woman exam with routine gynecological exam; Pelvic pain in female; Menorrhagia with regular cycle09/14/2025linisync Result Encounter [facility] External Department Unsolicited Vicente Freire, 09/14/2025amboo flowsheet [facility] [address] [place] [address] Vicente Freire, DO 09/07/20256062Jpdpgo66/22/2025 3:10 PM EDTOffice Visit [facility] [address] [place] [address] [place] [address] Vicente Freire DO Constipation, unspecified constipation type (Primary Dx); Menorrhagia with regular cycle; Painful menstrual periods; Nausea and vomiting, unspecified vomiting type; Intractable menstrual migraine with status tdwsuleubaq65/22/2025amboo flowsheet [facility] [address] [place] [address] [place] [address] Vicente Freire DO 08/03/2025Travelfrom Last 3 Months Social History Tobacco UseTypesPacks/DayYears UsedDateSmoking Tobacco: NeverSmokeless Tobacco: Never Tobacco Cessation:Counseling Given: Not Answered Alcohol UseStandard Drinks/WeekCommentsNever0 (1 standard drink = 0.6 oz pure alcohol)CommentsNoSex and Gender InformationValueDate RecordedSex Assigned at BirthNot on fileLegal GslIjkqet19/15/2023 11:09 PM EDTGender IdentityNot on fileSexual OrientationNot on file Last Filed Vital Signs Vital SignReadingTime TakenCommentsBlood Lmtgsyyl024/7009/14/2025 2:56 PM EDT Hspdm225805/19/2023 10:26 AM HTNCxguikbxlry47.7 ??C (98 ??F)05/19/2023 10:26 AM EDTRespiratory Rate--Oxygen Xjgmzlggru75%05/19/2023 10:26 AM EDTInhaled Oxygen Concentration--Atpdez83.8 kg (125 lb 1.9 oz)09/14/2025 2:56 PM XYHRkdsaj010 cm (5' 3 )09/14/2025 2:56 PM EDTBody Mass Index22.161 2:56 PM EDT Plan of Treatment DateTypeDepartmentCare Team (Latest Contact Info)Nunwkpmpdqj82/26/2025 2:30 PM ESTOffice Visit NOMLiegh Ann AGUILA [address] [place] [address] [place] [address] Marisel Carrizales PA [address] [address] Health MaintenanceDue DateLast DoneCommentsCOVID-19 Vaccine (2024-26 season) , 05/03/2021, 04/12/2021Influenza Vaccine (#1)2025 09/22/2006, 09/09/2005, 09/12/2004, Additional history existsPneumococcal Vaccine: Pediatrics (0 to 5 Years) and At-Risk Patients (6 to 64 Years)Aged Out No longer eligible based on patient's age to complete this topic Procedures Procedure NamePriorityDate/TimeAssociated DiagnosisCommentsIGP,APTIMA HPV,AGE LTEUYijcwia61/27/2025 3:00 PM EDT from Last 3 Months Results * IGP,APTIMA HPV,AGE GDLN (09/14/2025 3:00 PM EDT)ComponentValueRef RangeTest MethodAnalysis TimePerformed AtPathologist SignatureAGE GDLN ACOG TESTINGNote. TBHComment: ?? TESTS ? RESULT ??FLAG ??UNITS ?REF RANGE ??LAB ?? Clinician Provided Cytology Information ?? Source.............Cervix;Endocervix ?? No. of containers..01 ThinPrep Vial Age Algo ACOG Latasha... ??21-29 ? 01 ?FLAG LEGEND: ?L-Low Normal,H-High Normal,LL-Alert Low,HH-Alert High <-Panic Low,>-Panic High,A-Abnormal,AA-Critical Abnormal Performed at: 01 =G ?[facility] ?? [address] [place], [place] ??[phone] ?? Amada Lobo MD, IGP, RFX APTIMA HPV ASCUNote.TBHComment: ?? TESTS ? RESULT ??FLAG ??UNITS ?REF RANGE ??LAB DIAGNOSIS: ?02 ?? NEGATIVE FOR INTRAEPITHELIAL LESION OR MALIGNANCY. Specimen adequacy: ?02 ?? Satisfactory for evaluation. ??Endocervical and/or squamous metaplastic ?? cells (endocervical component) are present. Performed by: ? 02 ?? [employer] ([facility]) . ? 02 Note: ? Note ?02 ?? The Pap smear is a screening test designed to aid in the ?? detection of premalignant and malignant conditions of the ?? uterine cervix. ??It is not a diagnostic procedure and ?? should not be used as the sole means of detecting cervical ?? cancer. ??Both false-positive and false-negative reports do ?? occur. Test Methodology: ? Note ?02 ?? This liquid based ThinPrep(R) pap test was interpreted ?? using the Allihub(R) [employer](TM) Cervical Algorithm whole ?? slide imaging system. . ? 02 ?? The HPV DNA reflex criteria were not met with this specimen ?? result therefore, no HPV testing was performed. ?FLAG LEGEND: ?L-Low Normal,H-High Normal,LL-Alert Low,HH-Alert High <-Panic Low,>-Panic High,A-Abnormal,AA-Critical Abnormal Performed at: 02 WB ?[facility] ?? [address] [place] ??[address] ?? Amada Lobo MD, Performed at: ??=G - [facility] [address] [place], [place] ??[phone] Spray Worker: Amada Lobo MD, Phone: ??[phone] Performed at: ??WB - [facility] [address] [place], [place] ??[id number] Spray Worker: Amada Lobo MD, Phone: ??[phone] Specimen (Source)Anatomical Location / LateralityCollection Method / Volume Collection TimeReceived Time09/14/2025 3:00 PM EDT1 7:48 PM EDT Narrative [facility] - 09/18/2025 12:09 AM EDT BRUSH-SPATULA CERVIX ENDOCERVIX Authorizing ProviderResult TypeResult StatusCorey Mouna DOLAB BLOOD ORDERABLES Final ResultPerforming OrganizationAddressCity/State/ZIP CodePhone Number [facility] from Last 3 Months Insurance Care Teams Team MemberRelationshipSpecialtyStart DateEnd Date James Mcqueen MD [address] [place] [address] [facility]
--- OUTSIDE RECORDS SUMMARY | 2025-09-25 07:56 | XMS_ITS | Clinical Summary ---
Author Organization [facility] Address [address] [place] [address] Care Team Providers Care Wire Weaver Cloth Name Role Phone Unavailable Primary Care Provider [...] Problems ProblemNoted DateDiagnosed DateAcute lymphoid leukemia in kxutwlywh29/17/2003 Immunizations ImmunizationAdministration DatesNext Dueinfluenza vaccine, unspecified qnfciltjzid23/25/2004,09/25/2003varicella zoster immune globulin (VZIG) (VARIZIG)03/16/2004 Family History Medical HistoryRelationCommentsHeadacheFatherMigrainesDiabetesMaternal GrandfatherNoneMaternal GrandmotherNoneMotherHeadachePaternal Grandmother Migraines, seizuresNoneSister 1half-sisterNoneSister 2half-sisterNoneSister 3 RelationStatusCommentsFatherMaternal GrandfatherMaternal GrandmotherMother Paternal GrandmotherSister 1Sister 2Sister 3 Social History Tobacco UseTypesPacks/DayYears UsedDateSmoking Tobacco: NeverAlcohol UseStandard Drinks/WeekCommentsNo0 (1 standard drink = 0.6 oz pure alcohol)Comments NoSex and Gender InformationValueDate RecordedSex Assigned at BirthNot on file Legal NxnCzerkn91/02/2012 9:50 AM ESTGender IdentityNot on fileSexual OrientationNot on file Last Filed Vital Signs Vital SignReadingTime TakenCommentsBlood Kiqtkmhe829/64012/18/2011 9:09 AM EST Hlabv4188 9:09 AM DKWKqxxoqbhotb15.2 ??C (97.1 ??F)12/18/2011 9:09 AM ESTRespiratory Rate--Oxygen Saturation--Inhaled Oxygen Concentration--Vbfclz82.1 kg (95 lb 0.3 oz)12/18/2011 9:09 AM FCMFntyvg789.1 cm (4' 10.7 )12/18/2011 9:09 AM ESTBody Mass Index19.39012/18/2011 9:09 AM EST Plan of Treatment Health MaintenanceDue DateLast DoneCommentsPeds To Adult Transition Initial Gpliwqbfig24/26/2010Peds To Adult Transition Annual Chzbjhmyta46/26/2012HPV Vaccine (1 - 3-dose series)2013nxiety Thpsdztto17/26/2016Depression Ipfxwcuck06/26/2016HIV Fgdpapmin39/26/2016Hepatitis C Nycekiajc11/26/2016 DTaP,Tdap,Td Vaccine (1 - Tdap)2017Hepatitis B Vaccine (1 of 3 - 19+ 3- dose series)2017Cervical Cancer Watdctwbw14/26/2019Covid-19 Vaccine (1 - 2024- season)2025Influenza Vaccine (#1), 09/25/2003 Insurance
--- OUTSIDE RECORDS SUMMARY | 2025-09-25 07:56 | XMS_ITS | Patient Health Record ---
Author Organization [facility] Address [address] [place] [address] Care Team Providers Care Midlevel Provider Name Role Phone Cristal Aparicio Primary Care Provider Allergies Allergen (clinical drug ingredient) Drug/Non Drug [...] - Infanrix Unknown 12/20/2022 Administered DTap - BcbkxesaJdtzudg14/01/2023dministeredDTap - AbdoqrewRdzsang90/01/2023 AdministeredDTap - CywfsrduSeeckmk64/01/2023dministeredDTap - InfanrixUnknown 12/20/2022dministeredHepB - Engerix (Peds/Adol)Ibsjdma69 1998Administered HepB - Engerix (Peds/Adol)Kzkhnef6001/18/1999AdministeredHepB - Engerix (Peds/Adol)Jptpeir7905/20/1999AdministeredMeningococcal (MENACTRA)Unknown 05/19/20114385TkvioudrquauTCTBzphnmd89/07/4477XxhsdkcqgsmsZZHNlmztrv46/26/2004 XhjldnylattyEPEMDAFpavuei37/25/9932RvbjugcdaepaBDNDKTUlndcrt29/15/2021 AdministeredPFIZERIM Onmsixftnhxmv44/15/2021dministeredBoosterPFIZERUnknown 11/02/2021dministeredPolio, TITIgonwfh76/07/2000AdministeredPolio, IPVUnknown 07/14/20046330DpqykxlkmgvyOMPYBexftot86/01/2011dministeredzzz do not use Adult flu Rssruoz5809/22/2006dministered Social History Tobacco Use: Social History Observation Description Date Details (start date - stop date) Never Smoker NA - NA Social History Social DeterminantsSocial InfoQuestionAnswerNotesPRAPAREDate Completed/Updated: 05/08/2022What is your current housing situation?I have housingAre you worried about losing your housing?NoWhat is the highest level of school that you have finished?High school diploma or GEDWhat is your 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 Stress is when someone feels tense, nervous, anxious, or cant sleep at night because their mind is troubledNot at allIn the past year have you spent more than 2 nights in a row in a long term, half-way, fci center, orjuvenile correctional facility?NoAre you a refugee?NoWhat [...] one occasion in the past year?Never (0 points)Nkwpsk3OueoeqijwmgrgoDqbmkqii Behaviors affecting healthPoor/Risky Behaviors:Denies-Communication Barrier: Language Barrier?:Not Needed Problems Problem Type SNOMED Code ICD Code Onset Dates Problem Status W/U Status Risk Notes Problem Seasonal allergy (215432049) Seasonal all ergies (J30.2) ActiveconfirmedProblemGeneralized anxiety disorder (20359684)Generalized Anxiety Disorder (JERMAN) (F41.1)ActiveconfirmedProblemTension headache (924783995)Tension headache (G44.209)ActiveconfirmedProblemEpisodic mood disorder (64792360936018) Episodic mood disorder (F39)ActiveconfirmedProblemReduction deformity of lower limb (74079191)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)Active confirmedProblemLate menses (72739894)Late menses (N92.6)Activeconfirmed Plan Of Treatment No Information Insurance Providers Payer Name Payer Address Payer Phone Subscriber Number Group Number Insured Name Patient Relationship to Insured Coverage Start Date Coverage End Date ANTHEM Primary [address] [place] [address] [phone] [id number] CONNIE CLARK Parent 3 MEDICAL [facility] [address] [place] [phone] [id number], MACKENZIESelf - patient is the [id number] 2019 2022 Medical (General) History Medical History History ICD Code Tension headaches anxietymood disorderSurgical History Surgery Date(Month/Year) 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
--- OUTSIDE RECORDS SUMMARY | 2025-09-25 07:56 | XMS_ITS | Encounter Summary ---
Author Organization [facility] Address [address] [place] [address] Care Team Providers Care Occupational Nurse Name Role Phone James Mcqueen MD Primary Care Provider [phone] Encounter Details DateTypeDepartmentCare Team (Latest Contact Info)Skhglwtuucq83/27/2025linisync Result Encounter [facility] Unsolicited Vicente Freire DO [address] [facility] [place] [address] Social History Tobacco UseTypesPacks/DayYears UsedDateSmoking Tobacco: NeverSmokeless Tobacco: NeverAlcohol UseStandard Drinks/WeekCommentsNever0 (1 standard drink = 0.6 oz pure alcohol)CommentsNoSex and Gender InformationValueDate RecordedSex Assigned at BirthNot on fileLegal XtwQlxfbz60/15/2023 11:09 PM EDTGender IdentityNot on fileSexual OrientationNot on filedocumented as of this encounter Plan of Treatment DateTypeDepartmentCare Team (Latest Contact Info)Iybwdkzwffg75/26/2025 2:30 PM ESTOffice Visit NOMLeigh Ann AGUILA [address] [address] Marisel Carrizales PA [address] [place] [address] documented as of this encounter Procedures Procedure NamePriorityDate/TimeAssociated DiagnosisCommentsIGP,APTIMA HPV,AGE IAPBDtkwyhi11/27/2025 3:00 PM EDT documented in this encounter Results * IGP,APTIMA HPV,AGE GDLN (09/14/2025 3:00 PM EDT)ComponentValueRef RangeTest MethodAnalysis TimePerformed AtPathologist SignatureAGE GDLN ACOG TESTINGNote. TBHComment: ?? TESTS ? RESULT ??FLAG ??UNITS ?REF RANGE ??LAB ?? Clinician Provided Cytology Information ?? Source.............Cervix;Endocervix ?? No. of containers..01 ThinPrep Vial Age Algo ACOG Latasha... ??21-29 ? 01 ?FLAG LEGEND: ?L-Low Normal,H-High Normal,LL-Alert Low,HH-Alert High <-Panic Low,>-Panic High,A-Abnormal,AA-Critical Abnormal Performed at: 01 =G ?[facility] ?? [address] [place] ??[phone] ?? Amada Lobo MD, IGP, RFX APTIMA HPV ASCUNote.TBHComment: ?? TESTS ? RESULT ??FLAG ??UNITS ?REF RANGE ??LAB DIAGNOSIS: ?02 ?? NEGATIVE FOR INTRAEPITHELIAL LESION OR MALIGNANCY. Specimen adequacy: ?02 ?? Satisfactory for evaluation. ??Endocervical and/or squamous metaplastic ?? cells (endocervical component) are present. Performed by: ? 02 ?? Jin Beatty, Aircraft Maintenance Supervisor ([facility]) . ? 02 Note: ? [...] pap test was interpreted ?? using the [employer]ose!(R) Genius(TM) Cervical Algorithm whole ?? slide imaging system. . ? 02 ?? The HPV DNA reflex criteria were not met with this specimen ?? result therefore, no HPV testing was performed. ?FLAG LEGEND: ?L-Low Normal,H-High Normal,LL-Alert Low,HH-Alert High <-Panic Low,>-Panic High,A-Abnormal,AA-Critical Abnormal Performed at: 02 WB ?[facility] ?? [address] [place], [place] ??[phone] ?? Amada Lobo MD, Performed at: ??=G - [facility] [address] [place], [place] ??[id number] Sample Carrier: Amada Lobo MD, Phone: ??[phone] Performed at: ??WB - [facility] [address] [place], [place] ??[phone] Sample Carrier: Amada Lobo MD, Phone: ??[phone] Specimen (Source)Anatomical Location / LateralityCollection Method / Volume Collection TimeReceived Time09/14/2025 3:00 PM EDT10/ 7:48 PM EDT Narrative [facility] - 09/18/2025 12:09 AM EDT BRUSH-SPATULA CERVIX ENDOCERVIX Authorizing ProviderResult TypeResult StatusCorey Mouna DOLAB BLOOD ORDERABLES Final ResultPerforming OrganizationAddressCity/State/ZIP CodePhone Number [facility] documented in this encounter Visit Diagnoses Not on filedocumented in this encounter Care Teams Team MemberRelationshipSpecialtyStart DateEnd Date James Mcqueen MD [address] [place] [address] [place] [address] [place] [address] PCP - GeneralFamily Medicine05/19/23documented as of this encounter
== END 2025-09-25 07:52 | disposition home or self-care (01) ==
PROVIDERS: PCP Student in an Organized Health Care Education/Training Program; Visit Provider Obstetrics & Gynecology
DX: Z01.818 Encounter for other preprocedural examination (principal); N92.0 Excessive and frequent menstruation with regular cycle; R10.2 Pelvic and perineal pain

== ENCOUNTER 2025-10-05 08:53 | Day surgery (SDC) | payer OTHER, SELFPAY ==
[2025-09-25 08:42] VITALS: BP 109/71; PULSE 77; TEMP 36.2; O2SAT 97; BMI 22.3
[2025-10-05] VITALS (12 sets, daily range): BP systolic 96–127; BP diastolic 58–86; PULSE 73–113; TEMP 36.2–36.9; O2SAT 96–100; BMI 22.1
--- OUTSIDE RECORDS SUMMARY | 2025-10-05 08:59 | XMS_ITS | CCD ---
Author Organization [facility] Care Team Providers Care Dock Clerk Name Role Phone [place], Matthieu Attending Provider MARISEL MURO Consulting Unavailable KATHE, DR GUO Primary Care Unavailable MATT .MARISEL Attending Unavailable MATT .MARISEL Admitting Unavailable MOUNA ., DR ALEX Consulting Unavailable MOUNA ., DR ALEX Attending Unavailable MOUNA ., DR ALEX Admitting Unavailable KATHE, DR GUO Primary Care Unavailable James Mcqueen Unavailable James Mcqueen Primary Care Physician [phone] Jai Whittington Attending UnavailJai Chávez Attending Unavaila Rayne Dudley DO Primary Care Provider Rayne Patino DO Attending Provider [phone] James Mcqueen MD Primary Care Provider [phone] Rayne Patino Primary Care Unavailable Rayne Patino Attending Unavailable Rayne Patino Admitting Unavailable Abigail Freitas Admitting Unavailable Abigail Freitas Attending Unavailable James Mcqueen Primary Care Unavailable James Mcqueen MD Primary Care Provider ISAI FREIRE Attending Unavailable ISAI FREIRE Attending Unavailable Allergies Allergy ClassificationReported Allergen(s)Allergy TypeDate of OnsetReaction(s) Facility (1 source)OndansetronDrug Upoybnj63-32-1784Wqh [facility] Repository (4 sources)Ondansetron; Translations: [Ondansetron]Drug AllergyFranklyn varghese (disorder)[facility] (6 sources)OndansetronDrug Vlsblbt70-06-3968Rsjmuzpzkwv, HivesNOMS Healthcare (1 source)OndansetronDrug Gbiblra51-54-3326KqjhhgexkTri[facility] Medications Current Medications MedicationDrug Class(es)DatesSig (Normalized)Sig (Original)brexpiprazole 1 mg oral tablet (1 source)Atypical Antipsychotictake 1 tablet by mouth every twenty-four hours Rexulti 1 MG 1 tablet Orally Once a day ActivebusPIRone hydrochloride 5 mg oral tablet (1 source)Start: 25-94-0667llnt 1 tablet by mouth twice dailyBuspirone 5 mg tablet Active 5 MG PO Twice daily 60 30 September 11, 2025 12:00am Complies with drug therapydocusate sodium 100 mg oral capsule (2 sources)Start: 08-10-2025 End: 47-57-0048fnhj 1 capsule by mouth twice daily as needed for constipation docusate sodium (Colace) 100 MG capsule Indications: Constipation, unspecified constipation type Take 1 capsule (100 mg) by mouth 2 (two) times a day as needed for constipation for up to 10 days 30 capsule 5 08/10/2025 08/20/2025 Active ferrous sulfate 325 mg oral tablet (1 source)Start: 40-84-2972hcfm 1 tablet by mouth once dailyFerrous Sulfate 325 mg (65 mg iron) tablet Active 325 MG PO Daily 30 15 02August 03, 2025 12:00 am Iron deficiency Iron deficiency Complies with drug therapylamotrigine (8 sources)Mood Stabilizer, Anti-epileptic AgentStart: 00-36-8613blhlvmzcfln Oral, Refills(s) 0 Start Date: 12/17/23 Status: OrderedlamoTRIgine (LaMICtal) 200 MG tablet 200 mg Glnoaj99 hr metFORMIN hydrochloride 500 mg extended release oral tablet (5 sources)BiguanidemetFORMIN XR (Glucophage-XR) 500 MG 24 hr tablet 500 mg Activepolyethylene glycol 3350 15058 mg powder for oral solution (2 sources)Osmotic LaxativeStart: 20-55-0369qvnw 17 g by mouth once dailyMiralax 3350 17 gram packet 17 gm, Oral, Daily, # 100 EA, Refills(s) 0, Pharmacy: [facility]/pharmacy #[id number], 160, cm, 12/17/23 8:16:00 EST, Height/Length Dosing, 60, kg, 12/17/23 8:16:00 EST, Weight Dosing Start Date: 12/17/23 Status: Ordered predniSONE 20 mg oral tablet (1 source)Start: 76-99-7733aekhehOUXE 20 MG take 3 tablets Orally x3 days, then 2 tabs x3 days then 1 tab a day x3 days with food or milk for 9 days Oct, ActiveQUEtiapine 25 mg oral tablet (8 sources)Atypical AntipsychoticStart: 18-04-9582DYTfdaceuf (SEROquel) 25 MG tablet Take by mouth 12/17/2023 ActiveStart: 07-28-3768Bvhwsxfx Oral, Refills(s) 0 Start Date: 12/17/23 Status: Orderedtake 1 tablet by mouth every twenty-four hoursSEROquel 25 MG 1 tablet at bedtime Orally Once a day Active Completed/Discontinued Medications MedicationDrug Class(es)DatesSig (Normalized)Sig (Original)ALPRAZolam 0.25 mg oral tablet (3 sources)BenzodiazepineStart: 02-14-2024 End: 73-53-6758MJPIEBzkfv (Xanax) 0.25 MG tablet 02/14/2024 08/10/2025 Discontinued (Therapy completed)fluticasone propionate 0.05 mg/actuat metered dose nasal spray (3 sources)CorticosteroidStart: 10-26-2024 End: 49-37-6113gbak 1 spray(s) nasal route once daily as needed for congestion Fluticasone Propionate (Flonase Allergy Relief) 50 mcg/actuation spray,suspension Discontinued 1 SPRAY INTRANASAL Daily as needed for congestion 16 0 October 26, 2024 1:00am July 24, 2025 8:05am administer into each nostril Problems Active Problems Problem ClassificationProblemDateDocumented DateEpisodic/ChronicAbdominal pain (4 sources)Unspecified abdominal pain; Translations: [Left lower quadrant pain] Onset: 21-79-5541IzfbpniuRrdhunv dysrhythmias (1 source)Palpitations; Translations: [Palpitations]Onset: 79-55-7138Cbrlpwob Conditions associated with dizziness or vertigo (4 sources)Lightheadedness; Translations: [Dizziness and giddiness]07-24-2025 EpisodicHeadache; including migraine (5 sources)Migraine; Translations: [Migraine, unspecified, not intractable, without status migrainosus]ChronicHeadache; including migraine (4 sources)Headache; Translations: [Headache]39-89-1677ImdimtdaJlkhdpbhtghmw and screening for infectious disease (1 source)Encounter for screening for human papillomavirus (HPV); Translations: [ENC SCREENING HUMAN PAPILLOMAVIRUS]Onset: 01-79-6606HuczqurfNcwqwjmth (2 sources)History of leukemia; Translations: [Personal history of leukemia] 90-25-1145PjylanwhAtroxgz and fatigue (2 sources)Fatigue; Translations: [Other fatigue]90-55-3633TwoaqcfyMgdpsbcut disorders (13 sources)Excessive and frequent menstruation with regular cycle; Translations: [Menorrhagia]Onset: 43-20-3523KkfklmmMzzn disorders (2 sources)Bipolar I disorder; Translations: [Bipolar disorder, unspecified] ChronicNausea and vomiting (2 sources)Nausea and vomiting; Translations: [Nausea with vomiting, unspecified]01-14-5699UburwpjpXydkheirvld deficiencies (1 source)Iron deficiency; Translations: [Iron deficiency]04-86-9842Knuxkvsq Other female genital disorders (1 source)Pain in female pelvis; Translations: [Pelvic pain in female]09-14-2025 EpisodicOther gastrointestinal disorders (4 sources)Constipation; Translations: [Constipation, unspecified]03-13-2024 EpisodicOther gastrointestinal disorders (3 sources)Constipation, unspecified; Translations: [Constipation, unspecified] Onset: 51-66-4092TcpdojfaDwifp screening for suspected conditions (not mental disorders or infectious disease) (4 sources)Encounter for screening for malignant neoplasm of cervix; Translations: [ENC SCREENING MALIG NEOPLASM CERV]Onset: 30-83-7297BfcjpxnlBqoia upper respiratory disease (1 source)Allergic rhinitis; Translations: [Allergic rhinitis, unspecified] ChronicScreening and history of mental health and substance abuse codes (4 sources)History of mood disorder; Translations: [Personal history of other mental and behavioral disorders]03-22-2527NhrtbjonSyogd infection (3 sources)Disease caused by 2019-nCoV; Translations: [COVID-19]10-26-2024 Episodic Past or Other Problems Problem ClassificationProblemDateDocumented DateEpisodic/ChronicOther lower respiratory disease (1 source)Shortness of breath; Translations: [Shortness of breath]Onset: 25-49-9572Jkvlxpeh Results Test NameValueInterpretationReference RangeFacilityIGP,APTIMA HPV,AGE GDLNon 94-01-7803LNB GDLN ACOG TESTINGNote.NOMS HealthcareComment on above:TESTS RESULT FLAG UNITS REF RANGE LAB Clinician Provided Cytology Information Source.............Cervix;Endocervix No. of containers..01 ThinPrep Vial Age Algo ACOG Latasha... FLAG LEGEND: L-Low Normal,H-High Normal,LL-Alert Low,HH-Alert High <-Panic Low,>-Panic High,A-Abnormal,AA-Critical Abnormal Performed at: 01 =G [facility] [place] [address] Amada Lobo MD, IGP, RFX APTIMA HPV ASCUNote.NOMS HealthcareComment on above:TESTS RESULT FLAG UNITS REF RANGE LAB DIAGNOSIS: 02 NEGATIVE FOR INTRAEPITHELIAL LESION OR MALIGNANCY. Specimen adequacy: 02 Satisfactory for evaluation. Endocervical and/or squamous metaplastic cells (endocervical component) are present. Performed by: Ciara Beatty Operations Supervisor [employer] ([facility]) . 02 Note: Note 02 The [...] ThinPrep(R) pap test was interpreted using the PixtrROpenSpace(TM) Cervical Algorithm whole slide imaging system. . 02 The HPV DNA reflex criteria were not met with this specimen result therefore, no HPV testing was performed. FLAG LEGEND: L-Low Normal,H-High Normal,LL-Alert Low,HH-Alert High <-Panic Low,>-Panic High,A-Abnormal,AA-Critical Abnormal Performed at: [address] [place] [address] Amada Lobo MD, Performed at: =G - [facility] [id number] Turnaround Engineer: Amada Lobo MD, Phone: [phone] Performed at: [address] [id number] Turnaround Engineer: Amada Lobo MD, Phone: [phone] BRUSH-SPATULA CERVIX ENDOCERVIX CLINISYNCNOMS HealthcareAlanine aminotransferase [Enzymatic activity/volume] in Serum or PlasmaOrdered By: Rayne Patino on 84-33-4658ZTP [Catalytic activity/Vol]7 U/L7-52Tri[facility] North HospitalComment on above: Performed By: #### LIPID, [id number], T4F, TSH3, CBC, RETIC, CMP wRFX A1C, MG, FE and TIBC, JARED #### [facility] [address] [place] [address] USAAlbumin [Mass/volume] in Serum or Plasma by Bromocresol green (BCG) dye binding methoOrdered By: Rayne Patino on 92-11-7147Oxrnnpd BCG dye [Mass/Vol]4.7 g/dL3.5-5.7FCleveland Clinic Lutheran HospitalAlkaline phosphatase [Enzymatic activity/volume] in Serum or PlasmaOrdered By: Rayne Patino on 43-91-0592WAL [Catalytic activity/Vol]39 U/J69-181QdzmdplrrTrihealth Bethesda North HospitalComment on above:Performed By: #### LIPID, [id number], T4F, TSH3, CBC, RETIC, CMP wRFX A1C, MG, FE and TIBC, JARED #### [facility] [address] [place] [address] USAAspartate aminotransferase [Enzymatic activity/volume] in Serum or PlasmaOrdered By: Rayne Patino on 47-18-5970VGB [Catalytic activity/Vol]11 U/IBqh75-05CjunrbagoTrihealth Bethesda North HospitalComment on above: Performed By: #### LIPID, [id number], T4F, TSH3, CBC, RETIC, CMP wRFX A1C, MG, FE and TIBC, JARED #### [facility] [address] [place] [address] USABasophils [#/volume] in Blood by Automated countOrdered By: Rayne Patino on 08-98-5260Xewiwlvpj (Bld) [#/Vol]0.0 10*3/uL0.0-0.2 [facility] North HospitalComment on above:Performed By: #### LIPID, [id number], T4F, TSH3, CBC, RETIC, CMP wRFX A1C, MG, FE and TIBC, JARED #### [facility] [address] [place] [id number] USABasophils/100 leukocytes in Blood by Automated count Ordered By: Rayne Patino on 83-67-4966Bmaudhklw/100 WBC (Bld)0.5 %.[facility] North HospitalComment on above:Performed By: #### LIPID, [id number], T4F, TSH3, CBC, RETIC, CMP wRFX A1C, MG, FE and TIBC, JARED #### [place] [id number] USABilirubin.total [Mass/volume] in Serum or PlasmaOrdered By: Rayne Patino on 29-11-7122Kwvwgeaub [Mass/Vol]0.5 mg/dL0.3-1.0[facility] North HospitalComment on above:Performed By: #### LIPID, [id number], T4F, TSH3, CBC, RETIC, CMP wRFX A1C, MG, FE and TIBC, JARED #### [place] [address] USACMP with reflex to A1Con 62-29-1140Altpepq [Mass/Vol]4.7 g/dLNormal3.5-5.7The [facility] Physician GroupComment on above:Performed By: #### LIPID, [id number], T4F, TSH3, CBC, RETIC, CMP wRFX A1C, MG, FE and TIBC, JARED #### [place] [id number] USAGFR/1.73 sq M.predicted MDRD (S/P/Bld) [Vol rate/Area] mL/min/{1.73_m2}NormalThe [facility] Hospital Physician GroupComment on above:Performed By: #### LIPID, [id number], T4F, TSH3, CBC, RETIC, CMP wRFX A1C, MG, FE and TIBC, JARED #### [place] [address] USACalcium [Mass/volume] in Serum or PlasmaOrdered By: Rayne Patino on 53-04-0872Fzblfpf [Mass/Vol]8.7 mg/dL8.6-10.3FCleveland Clinic Lutheran HospitalComment on above:Performed By: #### LIPID, [id number], T4F, TSH3, CBC, RETIC, CMP wRFX A1C, MG, FE and TIBC, JARED #### [facility] [address] [place] [address] USACarbon dioxide, total [Moles/volume] in Serum or Plasma Ordered By: Rayne Patino on 71-74-0488HV0 [Moles/Vol]25.4 mmol/L21.0-31.0 [facility] HospitalComment on above:Performed By: #### LIPID, [id number], T4F, TSH3, CBC, RETIC, CMP wRFX A1C, MG, FE and TIBC, JARED #### [facility] [address] [place] [address] USAChloride [Moles/volume] in Serum or PlasmaOrdered By: Rayne Patino on 65-07-6996Sjesyuqo [Moles/Vol]106 mmol/J01-609OffvxchwmTrihealth Bethesda North HospitalComment on above:Performed By: #### LIPID, [id number], T4F, TSH3, CBC, RETIC, CMP wRFX A1C, MG, FE and TIBC, JARED #### [facility] [address] [place] [address] USACholesterol [Mass/volume] in Serum or PlasmaOrdered By: Rayne Patino on 39-48-9212Dtsvrjtlwqs [Mass/Vol]168 mg/yQ083-219ObkashlgcTrihealth Bethesda North HospitalComment on above:Chol less than 200 mg/dl low riskChol 201-239 mg/dl borderline riskChol 240 mg/dl and greater high riskResult Comment: Chol less than 200 mg/dl low risk Chol 201-239 mg/dl borderline risk Chol 240 mg/dl and greater high riskPerformed By: #### LIPID, [id number], T4F, TSH3, CBC, RETIC, CMP wRFX A1C, MG, FE and TIBC, JARED #### [facility] [address] [place] [address] USACholesterol in HDL [Mass/volume] in Serum or PlasmaOrdered By: Rayne Patino on 85-74-2440Djdslqyjmle in HDL [Mass/Vol]55 mg/dL23-92 [facility] North HospitalComment on above:HDL CHOL ATP-III CLASSIFICATION Cardiovascular RiskHDL > or equal to 60 mg/dL LOWHDL < 40 mg/dL HIGHResult Comment: HDL CHOL ATP-III CLASSIFICATION Cardiovascular Risk HDL > or equal to 60 mg/dL LOW HDL < 40 mg/dL HIGHPerformed By: #### LIPID, [id number], T4F, TSH3, CBC, RETIC, CMP wRFX A1C, MG, FE and TIBC, JARED #### [facility] [address] [place] [address] USACholesterol in LDL Calc [Mass/Vol]Ordered By: Rayne Patino on 65-66-0561Qukppdutsru in LDL [Mass/Vol]103 mg/dLHigh0-100[facility] HospitalComment on above:LDL ATP III CLASSIFICATIONLDL less than 100 mg/dL OptimalLDL 100-129 mg/dL Near or above wjsswfiHYV950-843 mg/dL Borderline highLDL 160-189 mg/dL HighLDL greater than 189 mg/dL Very high Cholesterol in VLDL Calc [Mass/Vol]Ordered By: Rayne Patino on 08-01-2025 Cholesterol in VLDL [Mass/Vol]10 mg/dLTrihealth Bethesda North HospitalComplete Blood Count Auto Diffon 61-07-6689Mfnp Corpuscular HGB Conc34.6 g/dLNormal 32.0-35.0The [facility] Physician GroupComment on above:Performed By: #### LIPID, [id number], T4F, TSH3, CBC, RETIC, CMP wRFX A1C, MG, FE and TIBC, JARED #### [facility] [address] [place] [address] USANRBC%0.1 /100{WBC}Normal0-0.5The [facility] Comment on above:Performed By: #### LIPID, [id number], T4F, TSH3, CBC, RETIC, CMP wRFX A1C, MG, FE and TIBC, JARED #### [facility] [address] [place] [address] USAWhite Blood Count5.2 [CFU]/mLNormal3.8-11.6The [facility] Physician GroupComment on above:Performed By: #### LIPID, [id number], T4F, TSH3, CBC, RETIC, CMP wRFX A1C, MG, FE and TIBC, JARED #### [facility] [address] [place] [address] USACreatinine [Mass/volume] in Serum or PlasmaOrdered By: Rayen Patino on 99-12-2733Ngghkbjqhr [Mass/Vol]0.50 mg/dLLow0.60-1.20[facility] HospitalComment on above:Performed By: #### LIPID, [id number], T4F, TSH3, CBC, RETIC, CMP wRFX A1C, MG, FE and TIBC, JARED #### [facility] [address] [place] [address] USAEosinophils [#/volume] in Blood by Automated countOrdered By: Rayne Patino on 83-68-8743Zebejmqpbzv (Bld) [#/Vol]0.1 10*3/uL0.0-0.45 [facility] HospitalComment on above:Performed By: #### LIPID, [id number], T4F, TSH3, CBC, RETIC, CMP wRFX A1C, MG, FE and TIBC, JARED #### [facility] [address] [place] [address] USAEosinophils/100 leukocytes in Blood by Automated count Ordered By: Rayne Patino on 11-81-0182Wqaupyoqspz/100 WBC (Bld)2.6 %.[facility] North HospitalComment on above:Performed By: #### LIPID, [id number], T4F, TSH3, CBC, RETIC, CMP wRFX A1C, MG, FE and TIBC, JARED #### [facility] [address] [place] [address] USAErythrocyte distribution width [Ratio] by Automated count Ordered By: Rayne Patino on 63-30-8714Jhvylbiqbsm distribution width (RBC) [Ratio]13.4 %11.9-15.3FCleveland Clinic Lutheran HospitalComment on above: Performed By: #### LIPID, [id number], T4F, TSH3, CBC, RETIC, CMP wRFX A1C, MG, FE and TIBC, JARED #### [facility] [address] [place] [address] USAErythrocytes [#/volume] in Blood by Automated countOrdered By: Rayne Patino on 34-56-6780ZLJ (Bld) [#/Vol]4.96 10*6/uL3.60-5.00[facility] North HospitalComment on above:Performed By: #### LIPID, [id number], T4F, TSH3, CBC, RETIC, CMP wRFX A1C, MG, FE and TIBC, JARED #### [facility] [address] [place] [address] USAFerritin [Mass/volume] in Serum or PlasmaOrdered By: Rayne Patino on 64-22-9839Gaftqtqz [Mass/Vol]6.6 ng/mLLow11.0-306.8[facility] North HospitalComment on above:Performed By: #### LIPID, [id number], T4F, TSH3, CBC, RETIC, CMP wRFX A1C, MG, FE and TIBC, JARED #### [facility] [address] [place] [address] USAFolate [Mass/volume] in Serum or PlasmaOrdered By: Rayne Patino on 29-89-6189Rubkci [Mass/Vol]7.2 ng/mL>5.9[facility] North HospitalComment on above:Folate reference range: >5.9 ng/mlThe WHO technical consultation on folate and vitamin w04johwpsskoqhe has determined that folate concentrations lessthan 4 ng/ml are considered deficient.Glomerular filtration rate [Volume Rate/Area] in Serum, Plasma or Blood by Creatinine Ordered By: Rayne Patino on 24-80-5581Bpiygwwwpk filtration rate [Volume Rate/Area] in Serum, Plasma or Blood by Creatinine> 60.0 mL/MinTrihealth Bethesda North HospitalGlucose [Mass/volume] in Serum or PlasmaOrdered By: Rayne Patino on 44-53-5101Yhxpmik [Mass/Vol]95 mg/lK66-947LfdtqcfppTrihealth Bethesda North HospitalComment on above:Performed By: #### LIPID, [id number], T4F, TSH3, CBC, RETIC, CMP wRFX A1C, MG, FE and TIBC, JARED #### [facility] [address] [place] [address] USAHematocrit [Volume Fraction] of Blood by Automated count Ordered By: Rayne Williamsonon on 69-39-6142Pacxasegjt (Bld) [Volume fraction]40.9 % 34.0-46.4FCleveland Clinic Lutheran HospitalComment on above:Performed By: #### LIPID, [id number], T4F, TSH3, CBC, RETIC, CMP wRFX A1C, MG, FE and TIBC, JARED #### [facility] [address] [place] [address] USAHemoglobin [Mass/volume] in BloodOrdered By: Rayne Sukumar on 33-30-7655Jsndbdyejp (Bld) [Mass/Vol]14.1 g/dL11.8-15.4FCleveland Clinic Lutheran HospitalComment on above:Performed By: #### LIPID, [id number], T4F, TSH3, CBC, RETIC, CMP wRFX A1C, MG, FE and TIBC, JARED #### [facility] [address] [place] [address] USAIron [Mass/volume] in Serum or PlasmaOrdered By: Rayne Sukumar on 50-83-6107Prgh [Mass/Vol]61 ug/bW37-085QmwslvlppTrihealth Bethesda North HospitalComment on above:Performed By: #### LIPID, [id number], T4F, TSH3, CBC, RETIC, CMP wRFX A1C, MG, FE and TIBC, JARED #### [facility] [address] [place] [address] USAIron and TIBC Profileon 08-01-2025% Iron Zujwiospzc49.7 % Qjd22-36Kpg [facility] Physician GroupComment on above:Performed By: #### LIPID, [id number], T4F, TSH3, CBC, RETIC, CMP wRFX A1C, MG, FE and TIBC, JARED #### [facility] [address] [place] [address] USATotal Iron Binding Dtnknult600 ug/cLGutj201-785Dnz [facility] Physician GroupComment on above:Performed By: #### LIPID, [id number], T4F, TSH3, CBC, RETIC, CMP wRFX A1C, MG, FE and TIBC, JARED #### [facility] [address] [place] [address] USALeukocytes [#/volume] corrected for nucleated erythrocytes in Blood by Automated counOrdered By: Rayne Patino on 35-92-8674TYO corrected for nucl RBC Auto (Bld) [#/Vol]5.2 10*3/uL3.8-11.[address] [place], [place] [address]Leukocytes [#/volume] in Blood by Automated countOrdered By: Rayne Patino on 02-67-4414ZKM (Bld) [#/Vol]5.2 10*3/uL3.8-11.6FCleveland Clinic Lutheran HospitalComment on above:Performed By: #### LIPID, [id number], T4F, TSH3, CBC, RETIC, CMP wRFX A1C, MG, FE and TIBC, JARED #### [facility] [address] [place] [address] USALipid Panelon 84-00-5208VVF Cholesterol,Sdrebzsdwo781 mg/dLHigh0-100The [facility] Physician GroupComment on above:Result Comment: LDL ATP III CLASSIFICATION LDL less than 100 mg/dL Optimal LDL 100-129 mg/dL Near or above optimal LDL 130-159 mg/dL Borderline high LDL 160-189 mg/dL High LDL greater than 189 mg/dL Very highPerformed By: #### LIPID, [id number], T4F, TSH3, CBC, RETIC, CMP wRFX A1C, MG, FE and TIBC, JARED #### [facility] [address] [place] [address] USATriglyceride w/Fthtsb32 mg/dLNormal0-149The [facility] Physician GroupComment on above:Result Comment: TRIG ATP III CLASSIFICATION TRIG less than 150 mg/dL Normal TRIG 150-199 mg/dL Borderline high TRIG 200-500 mg/dL High TRIG greater than 500 mg/dL Very high Standard traceable to the Center for Disease Conrtrol and Prevention (CDC) test method.Performed By: #### LIPID, [id number], T4F, TSH3, CBC, RETIC, CMP wRFX A1C, MG, FE and TIBC, JARED #### [facility] [address] [place] [address] USAVLDL OAELESPSNCY45 mg/dLNoIredell Memorial Hospital Physician GroupComment on above:Performed By: #### LIPID, [id number], T4F, TSH3, CBC, RETIC, CMP wRFX A1C, MG, FE and TIBC, JARED #### [facility] [address] [place] [address] USALymphocytes [#/volume] in Blood by Automated countOrdered By: Rayne Patino on 21-44-4289Qrnokttctsr (Bld) [#/Vol]1.7 10*3/uL1.00-4.8 [facility] HospitalComment on above:Performed By: #### LIPID, [id number], T4F, TSH3, CBC, RETIC, CMP wRFX A1C, MG, FE and TIBC, JARED #### [facility] [address] [place] [id number] USALymphocytes/100 leukocytes in Blood by Automated count Ordered By: Rayne Patino on 08-28-1123Vilcvobenpp/100 WBC (Bld)32.5 %. [facility] North HospitalComment on above:Performed By: #### LIPID, [id number], T4F, TSH3, CBC, RETIC, CMP wRFX A1C, MG, FE and TIBC, JARED #### [facility] [address] [place] [id number] USAH [Entitic mass] by Automated countOrdered By: Rayne Patino on 94-49-5254PAX (RBC) [Entitic mass]28.5 pg24.7-34.3FCleveland Clinic Lutheran HospitalComment on above:Performed By: #### LIPID, [id number], T4F, TSH3, CBC, RETIC, CMP wRFX A1C, MG, FE and TIBC, JARED #### [facility] [address] [place] [address] [facility] Auto (RBC) [Mass/Vol]Ordered By: Rayne aPtino on 16-29-9720LGCR (RBC) [Mass/Vol]34.6 g/dL32.0-35.0Tri[facility] North HospitalMCV [Entitic volume] by Automated countOrdered By: Rayne Patino on 52-51-0216SPL (RBC) [Entitic vol]82.4 zM51-268WjnqagrzhTrihealth Bethesda North Hospital Comment on above:Performed By: #### LIPID, [id number], T4F, TSH3, CBC, RETIC, CMP wRFX A1C, MG, FE and TIBC, JARED #### [facility] [address] [place] [address] USAMagnesium [Mass/volume] in Serum or PlasmaOrdered By: Rayne Patino on 45-21-9233Uauhbpgio [Mass/Vol]2.0 mg/dL1.9-2.7FCleveland Clinic Lutheran HospitalComment on above:Performed By: #### LIPID, [id number], T4F, TSH3, CBC, RETIC, CMP wRFX A1C, MG, FE and TIBC, JARED #### [facility] [address] [place], [place] [id number] USAMonocytes [#/volume] in Blood by Automated countOrdered By: Rayne Patino on 43-17-0500Tsrqdryqs (Bld) [#/Vol]0.2 10*3/uL0.0-0.8 [facility] HospitalComment on above:Performed By: #### LIPID, [id number], T4F, TSH3, CBC, RETIC, CMP wRFX A1C, MG, FE and TIBC, JARED #### [facility] [address] [place] [address] USAMonocytes/100 leukocytes in Blood by Automated count Ordered By: Rayne Patino on 85-40-5766Beqplnrkb/100 WBC (Bld)4.6 %.[facility] HospitalComment on above:Performed By: #### LIPID, [id number], T4F, TSH3, CBC, RETIC, CMP wRFX A1C, MG, FE and TIBC, JARED #### [facility] [address] [place] [address] USANeutrophils [#/volume] in Blood by Automated countOrdered By: Rayne Patino on 02-97-5851Ozylfaoxdju (Bld) [#/Vol]3.1 10*3/uL1.8-7.7 [facility] HospitalComment on above:Performed By: #### LIPID, [id number], T4F, TSH3, CBC, RETIC, CMP wRFX A1C, MG, FE and TIBC, JARED #### [facility] [address] [place] [address] USANeutrophils/100 leukocytes in Blood by Automated count Ordered By: Rayne Patino on 58-13-7310Vtroilnhffp/100 WBC (Bld)59.8 %. [facility] HospitalComment on above:Performed By: #### LIPID, [id number], T4F, TSH3, CBC, RETIC, CMP wRFX A1C, MG, FE and TIBC, JARED #### [facility] [address] [place] [address] USANo Panel InformationOrdered By: Rayne Patino on 80-45-3392Agclqcjs Creatinine Clearance (ChemN/AFCleveland Clinic Lutheran HospitalNucleated erythrocytes [Presence] in Blood by Automated countOrdered By: Rayne Patino on 62-76-4348Mvioguftc RBC Auto Ql (Bld)0.1 /100{WBC}0-0.5 [facility] HospitalPlatelet mean volume [Entitic volume] in Blood by Automated countOrdered By: Rayne Patino on 09-48-5642Idstssha mean volume (Bld) [Entitic vol]9.0 fL6.3-10.7FCleveland Clinic Lutheran HospitalComment on above:Performed By: #### LIPID, [id number], T4F, TSH3, CBC, RETIC, CMP wRFX A1C, MG, FE and TIBC, JARED #### [facility] [address] [place] [address] USAPlatelets [#/volume] in Blood by Automated countOrdered By: Raynejuju Patino on 41-70-0885Vxpwwowqj (Bld) [#/Vol]186 10*3/wQ957-458 [facility] HospitalComment on above:Performed By: #### LIPID, [id number], T4F, TSH3, CBC, RETIC, CMP wRFX A1C, MG, FE and TIBC, JARED #### [facility] [address] [place] [address] USAPotassium [Moles/volume] in Serum or PlasmaOrdered By: Rayne Patino on 39-74-6768Brznpyxtg [Moles/Vol]4.0 mmol/L3.5-5.1FCleveland Clinic Lutheran HospitalComment on above:Performed By: #### LIPID, [id number], T4F, TSH3, CBC, RETIC, CMP wRFX A1C, MG, FE and TIBC, JARED #### [address] [address] USAProtein [Mass/volume] in Serum or PlasmaOrdered By: Rayne Patino on 54-14-6068Ncfhxnf [Mass/Vol]7.2 g/dL6.4-8.9[facility] HospitalComment on above:Performed By: #### LIPID, [id number], T4F, TSH3, CBC, RETIC, CMP wRFX A1C, MG, FE and TIBC, JARED #### [address] [address] USAReticulocyte Counton 67-11-2183Epxdsgvintap Number0.051 10*6/uLNormal0.024-0.084The [facility] Physician GroupComment on above:Result Comment: PERFORMED BY: [place] [id number] PATHOLOGIST BELT LINE FEEDER APRIL MELCHOR M.D.Performed By: #### LIPID, [id number], T4F, TSH3, CBC, RETIC, CMP wRFX A1C, MG, FE and TIBC, JARED #### [facility] [address] [place] [address] USAReticulocyte Percent1.0 %Normal0.5-1.5The [facility] Physician GroupComment on above:Performed By: #### LIPID, [id number], T4F, TSH3, CBC, RETIC, CMP wRFX A1C, MG, FE and TIBC, JARED #### [facility] [address] [place] [address] USAReticulocytes [#/volume] in BloodOrdered By: Rayne Patino on 32-43-6515Xevnzadrxcqdy (Bld) [#/Vol]0.051 10*6/uL0.024-0.084[facility] HospitalReticulocytes/100 RBC Auto (Bld)Ordered By: Rayne Patino on 62-86-3647Vhusvduqshrbk/100 RBC (Bld)1.0 %0.5-1.5FCleveland Clinic Fairview Hospitalerum globulin measurement by calculation (mass/volume)Ordered By: Rayne Patino on 47-67-5355Wvbegyyt (S) [Mass/Vol]2.5 g/dLTrihealth Bethesda North HospitalComment on above:Performed By: #### LIPID, [id number], T4F, TSH3, CBC, RETIC, CMP wRFX A1C, MG, FE and TIBC, JARED #### [facility] [address] [place] [address] USASerum or plasma albumin/globulin mass ratioOrdered By: Rayne Patino on 08-09-0461Snexabm/Globulin [Mass ratio]1.9 {ratio}[facility] HospitalComment on above:Performed By: #### LIPID, [id number], T4F, TSH3, CBC, RETIC, CMP wRFX A1C, MG, FE and TIBC, JARED #### [facility] [address] [place] [address] USASerum or plasma anion gap determinationOrdered By: Rayne Patino on 81-20-2216Mjbhw gap [Moles/Vol]10.6 mmol/L6.0-15.0[facility] HospitalComment on above:Performed By: #### LIPID, [id number], T4F, TSH3, CBC, RETIC, CMP wRFX A1C, MG, FE and TIBC, JARED #### [facility] [address] [place] [address] USASerum or plasma iron binding capacity measurement (mass/volume)Ordered By: Rayne Patino on 46-15-0004Tnfx binding capacity [Mass/Vol]479 ug/qTRkal300-391AflhbhxfkHocking Valley Community Hospitalerum or plasma iron saturation measurement (mass fraction)Ordered By: Rayne Patino on 48-08-3104Clis saturation [Mass fraction]12.7 %Ahk08-35EvifyiyegHocking Valley Community Hospitalerum or plasma total cholesterol/high density lipoprotein (HDL) cholesterol mass ratOrdered By: Rayne Patino on 08-01-2025 Cholesterol.total/Cholesterol in HDL [Mass ratio]3.1 {ratio}<5.0[facility] HospitalComment on above:Performed By: #### LIPID, [id number], T4F, TSH3, CBC, RETIC, CMP wRFX A1C, MG, FE and TIBC, JARED #### [facility] [address] [place] [address] USASodium [Moles/volume] in Serum or PlasmaOrdered By: Rayne Patino on 62-27-6055Lytzgz [Moles/Vol]138 mmol/M573-305RilaozhubTrihealth Bethesda North HospitalComment on above:Performed By: #### LIPID, [id number], T4F, TSH3, CBC, RETIC, CMP wRFX A1C, MG, FE and TIBC, JARED #### [facility] [address] [place] [address] USAThyrotropin [Units/volume] in Serum or PlasmaOrdered By: Rayne Patino on 79-37-4390IJW Qn1.96 m[IU]/L0.45-5.33[facility] HospitalComment on above:Result Comment: PERFORMED BY: [place] [address] PATHOLOGIST BELT LINE FEEDER APRIL MELCHOR M.D.Performed By: #### RESP PANEL UPP., BIOFIRECOVDET #### [facility] [address] [place] [address] USAThyroxine (T4) free [Mass/volume] in Serum or Plasma Ordered By: Rayne Patino on 80-88-6483Iqyc T4 [Mass/Vol]0.85 ng/dL0.61-1.12 [facility] HospitalComment on above:Performed By: #### RESP PANEL UPP., BIOFIRECOVDET #### [facility] [address] [place] [id number] USATransferrin [Mass/volume] in Serum or PlasmaOrdered By: Raynejuju Patino on 21-21-9382Zedckeucttl [Mass/Vol]342 mg/iB791-323WccvlggegTrihealth Bethesda North HospitalComment on above:Performed By: #### LIPID, [id number], T4F, TSH3, CBC, RETIC, CMP wRFX A1C, MG, FE and TIBC, JARED #### [facility] [address] [place] [id number] USATriglyceride [Mass/volume] in Serum or PlasmaOrdered By: Rayne Sukumar on 36-83-4598Sgcrsnbnfspe [Mass/Vol]52 mg/dL0-149[facility] HospitalComment on above:TRIG ATP III CLASSIFICATIONTRIG less than 150 mg/dL NormalTRIG 150-199 mg/dL Borderline highTRIG 200-500 mg/dL High TRIG greater than 500 mg/dL Very highStandard traceable to the Center for Disease Conrtrol and Prevention (CDC) test method.Urea nitrogen [Mass/volume] in Serum or PlasmaOrdered By: Rayne Sukumar on 89-20-6408Pdya nitrogen [Mass/Vol] 12 mg/dL7-25[facility] HospitalComment on above:Performed By: #### LIPID, [id number], T4F, TSH3, CBC, RETIC, CMP wRFX A1C, MG, FE and TIBC, JARED #### [facility] [address] [place] [address] USAVit. B12/Folate Profileon 45-71-2520Dhjurj2.2 ng/mLNormal >5.9The [facility] Physician GroupComment on above:Result Comment: Folate reference range: >5.9 ng/ml The WHO technical consultation on folate and vitamin b12 deficiencies has determined that folate concentrations less than 4 ng/ml are considered deficient.Performed By: #### RESP PANEL UPP., BIOFIRECOVDET #### [place] [address] USAVitamin B12 ser/plasOrdered By: Rayne Patino on 43-38-9848Wsejghfej (Vitamin B12) [Mass/Vol]223 pg/zC005-197Fsttastde[address] [place], [place] [address]Comment on above:Performed By: #### RESP PANEL UPP., BIOFIRECOVDET #### [facility] [address] [place] [address] USAXR chest 2V*on 86-76-9899QA chest 2V*[facility] [place] [address] [place] [address] XRay Report Signed Patient: Sherrell Clark MR#: [id number] : 2000 Acct:[id number] Age/Sex: 23 / F ADM Date: 10/26/24 Loc: ER Room: Type: [facility] ER Attending Dr: Copies to: Abigail [...] Melvin Verma M.D.10/27/2024 5:24 AM Dictation Location: [place] [address] Transcribed By: [facility] 10/27/245[address] Dictated By: Melvin Verma II, MD 10/27/2421 Signed By: 10/27/2424[facility] Detectedon 10-26-2024 BioFire DetectedDetectedCritically abnormalNot DetecteThe [facility] Hospital Physician GroupComment on above:Result Comment: This is a duplicate RP2.1 COVID (PCR) result to be used for statistical tracking purpose only. PERFORMED BY: [place] [address] PATHOLOGIST BELT LINE FEEDER RONALDO DIAL M.D.Performed By: #### RESP PANEL UPP., BIOFIRECOVDET #### [place] [address] USAECG 12 lead ECGon 81-93-8642ZLG 12 lead ECGSUMMA HEALTH [facility]US Main [place] [address] [place] [address] Electrocardiograph Report Signed Patient: Sherrell Clark MR#: [id number] : 2000 Acct:[id number] Age/Sex: 23 / F ADM Date: 10/26/24 Loc: ER Room: Type: [facility] ER Attending Dr: Ordering Provider: Abigail [...] ECGs available Confirmed by ALEXANDRIA TORRES DO ([id number]) on 10/27/2024 5:51:27 AM Referred By: Electronically Signed By: ALEXANDRIA TORRES DO Transcribed By: MUS Signed By Alexandria Torres DO 10/27 0551NoIredell Memorial Hospital Physician GroupRespiratory (Upper) Panel, PCRon 88-58-8039Ohcuzcvdktf (Upper) Panel, PCRAdenovirus Not detected Bordetella parapertussis [...] Influenza A H3 Blank Space PERFORMED BY: [facility] [address] [facility] [place] [address] PATHOLOGIST BELT LINE FEEDER RONALDO DIAL M.D.[facility] Physician GroupComment on above: Performed By: #### RESP PANEL UPP., BIOFIRECOVDET #### [facility] [address] [place] [address] USAAmbulatory Visit Summaryon 34-37-6980Luyxfliovb Visit Summary SHERRELL CLARK :2000 Visit Date:12/17/2023 Ambulatory Visit Instructions Your Diagnosis LLQ abdominal pain Constipation Your Care Team Attending Physician - Nelsy YEBOAH, Jai Frakns Primary Care Physician - James Mcqueen DO [...] EDT With: Nelsy YEBOAH, Jai Franks [facility] HealthInvalid Interpretation Code LLQ abdominal pain, Print Label By Order Location\.br\ Comprehensive Metabolic Panel, Blood, Routine collect, 12/17/23, Order for future visit, Lab Collect, LLQ abdominal pain, Print Label By Order Location\.br\ Thyroid Stimulating Hormone, Blood, Routine collect, 12/17/23, Order for future visit, Lab Collect, LLQ abdominal painUnc Health Johnstoner Brook Lane Psychiatric CenterGastroenterology Office/Clinic Note on 74-24-3532Lofquwpistiwdlme Office/Clinic NoteChief Complaint ref by Kathe- LLQ [...] 01/18/1999 Recorded hepatitis B pediatric vaccine 2000 RecordedNoShelby Memorial HospitalComment on above:Result Comment: Electronically Signed By: Nelsy YEBOAH, Jai Franks\.br\Date and Time Signed: 12/17/23 08:55 ESTPhysician Referralon 05-92-0746Orelzurme [id number]#1.00TIFF [facility] HospitalPAP ACOG PANEL 2: 21 to 29on 02-28-2023..Normal [facility] HospitalComment on above:Performed By: #### [id number] #### [facility] [address] [place] [address] Dr. Rob White Gdln ACOG Guhnkjz67-32YunateZiwSumma Health Barberton CampusComtrinity health grand rapids hospital on above:Performed By: #### [id number] #### [facility] [address] [place] [address] Dr. Rob EtienneDIAGNOSIS:CommentChildren's Hospital of Columbus on above: Result Comment: NEGATIVE FOR INTRAEPITHELIAL LESION OR MALIGNANCY.Performed By: #### [id number] #### [facility] [address] [place] [address] Dr. Rob EtienneMethodology:CommentChildren's Hospital of Columbus on above: Result Comment: This liquid based ThinPrep(R) pap test was screened with the use of an image guided system.Performed By: #### [id number] #### [facility] [address] [place] [address] Dr. Rob EtienneNote:CommentChildren's Hospital of Columbus on above:Result Comment: The Pap smear is a screening test designed to aid in the detection of premalignant and malignant conditions of the uterine cervix. It is not a diagnostic procedure and should not be used as the sole means of detecting cervical cancer. Both false-positive and false-negative reports do occur. .Performed By: #### [id number] #### [place] [address] Dr. Rob EtiennePerformed by:[facility] on above: Result Comment: Jinny Davis, Cephalometric Analyst (ASCP)Performed By: #### [id number] #### [facility] [address] [place] [address] Dr. Rob EtienneReflex Criteria:CommentChildren's Hospital of Columbus on above:Result Comment: The HPV DNA reflex criteria were not met with this specimen result therefore, no HPV testing was performed. .Performed By: #### [id number] #### [place] [address] Dr. Rob EtienneSpecimen adequacy:CommentChildren's Hospital of Columbus on above:Result Comment: Satisfactory for evaluation. Endocervical and/or squamous metaplastic cells (endocervical component) are present.Performed By: #### [id number] #### [place] [address] Dr. Rob Alvarado SERUMon 97-88-3926Cueajuekmhfpspvdomcphv (DHEA)810 ng/dL Critically qxwu30-211Swv [facility] on above:Result Comment: Age 1 - 5 years 0 - 67 6 - 7 years 0 - 110 8 - 10 years 0 - 185 11 - 12 years 0 - 201 13 - 14 years 0 - 318 15 - 16 years 39 - 481 17 - 19 years 40 - 491 >19 years 31 - 701Performed By: #### DHEA. #### [facility] [address] [place] [address] Dr. Rob Alvarado-SULFATEon 25-64-0373NUNP-Gewidsq788.0 ug/zSEtvczc264.0-431.7 [facility] on above:Performed By: #### DHEASUL #### [facility] [address] [place] [address] Dr. Rob Berry 54-99-4687FGI3.2 mIU/mLNormalPromedica Bay Park HospitalComment on above:Result Comment: Adult Female: Follicular phase 3.5 - 12.5 Ovulation phase 4.7 - 21.5 Luteal phase 1.7 - 7.7 Postmenopausal 25.8 - 134.8Performed By: #### LBCFSH #### [facility] [address] [place] [address] Dr. Rob EtienneLUTEINIZING HORMONE (LH)on 00-80-2705GE5.3 mIU/mLNormalPromedica Bay Park HospitalComment on above:Result Comment: Adult Female: Follicular phase 2.4 - 12.6 Ovulation phase 14.0 - 95.6 Luteal phase 1.0 - 11.4 Postmenopausal 7.7 - 58.5Performed By: #### LBCLH #### [facility] [address] [place] [address] Dr. Rob Linda AUTO DIFFon 22-79-1231MKHV #0.0 103/ulNormal0.0-0.1Prom[facility] Park HospitalComment on above:Performed By: #### CBC #### [facility] [address] [place] [address] Dr. Rob EtienneBasophils/100 WBC (Bld)0.4 %Normal0.2-2.0[facility] Comment on above:Performed By: #### CBC #### [facility] [address] [place] [address] Dr. Rob Knott #0.1 103/ulNormal0.0-0.7The [facility] HospitalComment on above: Performed By: #### CBC #### [facility] [address] [place] [address] Dr. Rob Fernandesosinophils/100 WBC (Bld)1.8 %Normal0.9-7.0[facility] Comment on above:Performed By: #### CBC #### [facility] [address] [place] [address] Dr. Yilan ChangErythrocyte distribution width (RBC) [Ratio]12.8 %Xnembu59.0-15.0 The [facility] HospitalComment on above:Performed By: #### CBC #### [facility] [address] [place] [address] Dr. Rob EtienneHematocrit (Bld) [Volume fraction]42.6 %Sodfea01.0-48.0The [facility] HospitalComment on above:Performed By: #### CBC #### [facility] [address] [place] [address] Dr. Rob EtienneHemoglobin (Bld) [Mass/Vol]14.3 g/xKNwvavx54.0-16.0The [facility] HospitalComment on above:Performed By: #### CBC #### [facility] [address] [place] [address] Dr. Rob Marsh #0.01 10e3/ulNormal0.00-0.03The [facility] HospitalComment on above:Performed By: #### CBC #### [facility] [address] [place] [address] Dr. Rob Marsh %0.2 %Normal0.0-0.5The [facility] HospitalComment on above: Performed By: #### CBC #### [facility] [address] [place] [address] Dr. Rob Garduno #1.8 103/ulNormal1.2-3.8The [facility] HospitalComment on above:Performed By: #### CBC #### [facility] [address] [place] [address] Dr. Rob Murdockmphocytes/100 WBC (Bld)32.2 %Ggbsyj16.5-60.0The [facility] HospitalComment on above:Performed By: #### CBC #### [facility] [address] [place] [address] Dr. Rob HellerUAL DIFF REQNONormalThe [facility] HospitalComment on above: Performed By: #### CBC #### [facility] [address] [place] [address] Dr. Rob Meeks (RBC) [Entitic mass]29.3 hgSdcwml11.7-34.0The [facility] HospitalComment on above:Performed By: #### CBC #### [facility] [address] [place] [address] Dr. Rob Morales (RBC) [Mass/Vol]33.6 g/hWVymhho35.9-35.2The [facility] HospitalComment on above:Performed By: #### CBC #### [facility] [address] [place] [address] Dr. Rob Morales (RBC) [Entitic vol]87.3 dCAhdysm64.0-99.0The [facility] HospitalComment on above:Performed By: #### CBC #### [facility] [address] [place] [address] Dr. Rob Harris #0.2 103/ulCritically low0.3-0.8The [facility] HospitalComment on above:Performed By: #### CBC #### [facility] [address] [place] [address] Dr. Rob Zaidiocytes/100 WBC (Bld)3.9 %Normal1.7-12.0[facility] Comment on above:Performed By: #### CBC #### [facility] [address] [place] [address] Dr. Rob Gonzales #3.4 103/ulNormal1.4-6.5The [facility] HospitalComment on above:Performed By: #### CBC #### [facility] [address] [place] [address] Dr. oRb Wardutrophils/100 WBC (Bld)61.5 %Nuglab69.0-75.0The [facility] HospitalComment on above:Performed By: #### CBC #### [facility] [address] [place] [address] Dr. Rob Holet mean volume (Bld) [Entitic vol]10.4 fLNormal9.5-13.5The [facility] HospitalComment on above:Performed By: #### CBC #### [facility] [address] [place] [address] [address] Rob EtiennePLT213 103/qyKvhsfn654-725Jjm [facility] HospitalComment on above: Performed By: #### CBC #### [facility] [address] [place] [address] Dr. Rob EtienneRBC4.88 106/ulNormal4.20-5.40The [facility] HospitalComment on above:Performed By: #### CBC #### [facility] [address] [place] [address] Dr. Rob EtienneWBC5.4 103/ulNormal4.0-11.0The [facility] HospitalComment on above: Performed By: #### CBC #### [facility] [address] [place] [address] Dr. Rob EtienneGLYCOHEMOGLOBIN A1Con 77-35-6314YOJ RECOMMENDATIONSEE BELOWNormal The [facility] HospitalComtrinity health grand rapids hospital on above:Result Comment: ADA RECOMMENDED LIMIT 4.0 - 6.0 ADA THERAPEUTIC TARGET < 7.0 ACTION SUGGESTED > 7.0Performed By: #### A1C #### [facility] [address] [place] [address] Dr. Rob EtienneGlucose [Mass/Vol]94 mg/dLNormalThe [facility] on above:Performed By: #### A1C #### [facility] [address] [place] [address] Dr. Rob EtienneHbA1c (Bld) [Mass fraction]4.9 %Normal4.5-6.2The [facility] on above:Performed By: #### A1C #### [facility] [address] [place] [address] Dr. Rob EtienneTSHojulia 24-02-0731KZP5.052 uIU/mLNormal0.358-3.740The [facility] on above:Performed By: #### TSH #### [facility] [address] [place] [address] Dr. Rob Madera ( test) IA.rapid Ql (U)Ordered By: Matthieu Beltre on 64-44-4286UYZ ( test) Ql (U)NegativeTrihealth Bethesda North Hospital TSH DL <= 0.005 mIU/L QnOrdered By: Matthieu Patt on 56-63-3816AGE Qn1.40 m[IU]/L0.45-5.33[facility] Vital Signs Date TimeVital SignValuePerforming JylxdhwanWyuatdai85-06-8636 14:56-0400Body vzeler287 cmCorey Mouna DO Work Phone: [facility] CenterMqfjgtuitk04-34-4032 14:56-0400Body mass index (BMI) [Ratio]22.16 kg/b2Wkndr Mouna DO Work Phone: [facility] CenterHyhglrwfno36-11-3921 14:56-0400Body hhilre23.75 kgCorey Mouna DO Work Phone: [facility] CenterCzhzflgsac89-92-6014 14:56-0400Diastolic blood aeqlkzwy66 mm[Hg]Isai Mouna DO Work Phone: [facility] CenterEuhgloztqp86-82-4291 14:56-0400Systolic blood aotklfrp426 mm[Hg]Isai Mouna DO Work Phone: [facility] CenterMznmudhbhp66-37-6840 08:35-0400Body qfkaqv291.02 cmSamantha Sukumar DO Work Phone: [phone]10-24-2025 08:35-0400 Body mass index (BMI) [Ratio]22.1 kg/q1Wyngavxs Sukumar DO Work Phone: [facility]10-24-2025 08:35-0400 Body .69 kgSamantha Sukumar DO Work Phone: [phone] [place], [place] 9230910-24-2025 08:35-0400 Diastolic blood vemluofn35 mm[Hg]Rayne Sukumar DO Work Phone: [phone] [place], [place] 92[address]10-24-2025 08:35-0400 Heart rate75 /minSamantha Sukumar DO Work Phone: [phone] [place], [place] 92[address]10-24-2025 08:35-0400 SaO2% (BldA) [Mass fraction]100 %Rayne Sukumar DO Work Phone: [phone] [place], [place] 92[address]10-24-2025 08:35-0400 Systolic blood akhshtuf987 mm[Hg]Rayne Sukumar DO Work Phone: [phone] [place], [place] 9230909-22-2025 15:30-0400 Body upthkv779 cmCorey Mouna DO Work Phone: [facility] CenterHijqfkivhp16-23-1032 15:30-0400Body mass index (BMI) [Ratio]22.32 kg/v7Xakaf Mouna DO Work Phone: [facility] CenterFuwqhvlaes66-45-8801 15:30-0400Body nujgzd25.15 kgCorey Mouna DO Work Phone: [facility] CenterSeltpvaaef96-73-2304 15:30-0400Diastolic blood vlunqsex51 mm[Hg]Isai Mouna DO Work Phone: [facility] CenterGakxahzoqr50-78-5293 15:30-0400Systolic blood qeyhnaci864 mm[Hg]Isai Mouna DO Work Phone: [facility] CenterMdiwkptndq54-51-5492 08:03-0400Body gxrkso020.02 cmSjanki Williamsonon DO Work Phone: [phone] [place], [place] 9230909-05-2025 08:03-0400 Body mass index (BMI) [Ratio]21.7 kg/a4Emnjwmzs Sukumar DO Work Phone: [phone] [place], [place] 9230909-05-2025 08:03-0400 Body .79 kgSayusef Williamsonon DO Work Phone: [phone] [place], [place] 9230909-05-2025 08:03-0400 Diastolic blood ryevlpzn20 mm[Hg]Rayne Sukumar DO Work Phone: [phone] [place], [place] 9230909-05-2025 08:03-0400 Heart rate89 /minSamantha Sukumar DO Work Phone: [facility]09-05-2025 08:03-0400 SaO2% (BldA) [Mass fraction]98 %Rayne Sukumar DO Work Phone: [facility]09-05-2025 08:03-0400 Systolic blood mpntlmha103 mm[Hg]Rayne Sukumar DO Work Phone: [facility]01-29-2024 08:14-0500 Blood Pressure LocationMuhammad Sarmini [phone]-IkmfoCleveland Clinic01-29-2024 08:14-0500Diastolic blood lreeacpu13 mm[Hg]Vergara Sarmini [phone]-SgecdCleveland Clinic01-29-2024 08:14-0500Heart rate68 /minMuhammad Sarmini [phone]-FaahoCleveland Clinic01-29-2024 08:14-0500Respiratory rate16 /minMuhammad Sarmini [phone]-QuthsCleveland Clinic01-29-2024 08:14-0500Systolic blood jkgrypkn097 mm[Hg]Vergara Sarmini 677-1302Wyucec-EzhvtCleveland Clinic12-01-2023 12:00-0500Body dqubli099.02 cmJames Mcqueen Other [employer] Other 12-01-2023 12:00-0500Body mass index (BMI) [Ratio]23.2 kg/x2LexsfJames Mcqueen Other [employer] Other 12-01-2023 12:00-0500Body snlitcodlwk13.2 [degF]James Mcqueen Other [employer] Other 12-01-2023 12:00-0500Body bdpomu60.42 kgDarodno Mcqueen Other [employer] Other 12-01-2023 12:00-0500Diastolic blood qpsxfsxo64 mm[Hg] James Mcqueen Other [employer] Other 12-01-2023 12:00-0500Respiratory rate16 /minDavino Mcqueen Other [employer] Other 12-01-2023 12:00-2548GdN2% (BldA) [Mass fraction]98 % James Mcqueen Other [employer] Other 12-01-2023 12:00-0500Systolic blood uthgbizv899 mm[Hg] James Mcqueen Other [employer] Other Encounters Encounter DateEncounter TypeCare ProviderFacilityStart: 09-14-2025 End: 02-95-3663Gawzmti encounter procedureCorey Mouna DO Work Phone: noms HealthcareStart: 09-14-2025 End: 33-68-5243Ejmocxgh preventive med est patient 18-39 yrsCorey Mouna DO Work Phone: noms [place] OBGYNComment on above:Pre-op examination; Well woman exam with routine gynecological exam; Pelvic pain in female; Menorrhagia with regular cycleStart: 09-14-2025 End: 39-29-3791Pxgmnypzhmzol examination doneCorey Mouna DO Work Phone: noms HealthcareStart: 09-14-2025 End: 53-53-3875gnhvlyklpvLPYXM FAZIONot AvailableStart: 09-14-2025 End: 35-73-8191Xpfdsz flowsheetCorey Mouna DO Work Phone: no [place] OBGYNStart: 09-14-2025 End: 72-67-5591Ovlosg flowsheetCorey Mouna DO Work Phone: no [place] OBGYNStart: 09-14-2025 End: 08-53-7238Jysvqmais Result EncounterCorey Mouna DO Work Phone: NOQG External Department UnsolicitedStart: 09-11-2025 End: 03-28-7297ewwhwwpcrrYiryvqhq J Sukumar KOENIG Work Phone: -[facility] PCStart: 09-11-2025 End: 25-49-6250Fhejhko encounter procedureSjanki Patino -[facility] Work Phone: Start: 08-10-2025 End: 74-13-2310Akvgur outpatient visit 15 minutesCorey Mouna DO Work Phone: no [place] OBGYNComment on above:Constipation, unspecified constipation type (Primary Dx); Menorrhagia with regular cycle; Painful menstrual periods; Nausea and vomiting, unspecified vomiting type; Intractable menstrual migraine with status migrainosusStart: 08-10-2025 End: 19-30-3130wjphoercsoSBEXJ FAZIONot AvailableStart: 08-10-2025 End: 16-92-5347Ycgdqj flowsheetCorey Mouna DO Work Phone: NO [place] OBGYNStart: 08-10-2025 End: 12-65-5143Ulgbsw flowsheetCorey Mouna DO Work Phone: [facility] [place] OBGYNStart: 08-01-2025 End: 75-49-0457Ejjofqh encounter procedureSjanki Patino DO-[facility] Work Phone: Start: 08-01-2025 End: 51-02-8174xmqgbjikueTqlabptb J Sukumar DO Work Phone: [facility] Work Phone: Start: 07-24-2025 End: 83-26-7303mjmmtjmrrlGverdvlc J Mason DO Work Phone: [facility] Work Phone: Start: 07-24-2025 End: 43-30-1210Xnruvob encounter procedureSjanki Patino DO-[facility] Work Phone: Start: 10-26-2024 End: 54-65-4338Dgpoiqxlq department patient visitCorenny Freitas [facility]: 03-17-2024 End: 15-29-8180nxpvqojibyGpgbohqk Talal SarminiFacility:[facility] DHStart: 03-17-2024 End: 56-66-1145Uxddgsh encounter procedureMuhammad Talal Sarmini 159-1956Njwyrw-FrynzTr[facility] Start: 12-17-2023 End: 52-41-2731zvfqijevwtInjgjdpw Talal SarminiFacility:[facility] DHStart: 12-17-2023 End: 33-02-5573Lrscljc encounter procedureMuhammad Talal Sarmini [phone]-JvsejTrinity [facility] Start: 13-68-9571mzspvtxgqsBivrznpz Sarmini Facility:Dany DHStart: 10-19-2023 End: 39-48-0448tvxiesaohxAkmzp Girvin Other [employer] Other Start: 73-98-4696Pcwlbpqub for general adult medical examination without abnormal findingsruddy [facility] Medicine [place] Start: 90-64-2641Oktvpwry preventive med est patient 18-39 yrsDavino ReaChildren's Medical Center Plano BellevueStart: 02-22-2023 End: 61-32-2682agvvizeyogGTY MATT .Facility:C3Hocof: 07-31-2022 End: 61-52-3615bsqkiwajouGN COREY FAZIO .Facility:W7Ygdmq: 07-26-2022 End: 68-96-3677Lglxvpnp ReferredDO Matthieu Beltre Work Phone: [facility] Procedures DateProcedureProcedure DetailPerforming ClinicianStart: 41-99-3705NKO,APTIMA HPV,AGE GDLNCorey Mouna DO Work Phone: Plan of Treatment DateCare ActivityDetailAuthorStart: 12-15-2025 End: 81-62-5454Boeajfq encounter myyxjakjs76/27/2026 8:30 AM EST Procedure Visit NOMLeigh Ann AGUILA [address] [place] [phone] Isai Freire, DO [address] [place] [address] NOMS [facility] OBGYNStart: 10-19-2025 End: 61-53-8866Wzcqgmn encounter djvrgyeon12/01/2025 4:00 PM EST Office Visit NOMLeigh Ann AGUILA [address] [place] [phone] Marisel Carrizales PA [address] [place] [address] N[facility] OBGYNStart: 09-14-2025 End: 45-67-8627Ivomzje encounter procedureNOMS Getachew OBGYNComment on above: ArrivedStart: 08-10-2025 End: 09-97-9316Owhhfsv encounter /22/2025 3:10 PM EDT Office Visit NOMLeigh Ann AGUILA [address] [place] [phone] Isai Freire, DO [address] [place], [place] [phone] Desi [place] OBGYNComment on above:ArrivedStart: 08-10-2025 End: 69-42-2881TZ PelvisUS Pelvis w/ TV Imaging Routine Menorrhagia with regular cycle Painful menstrual periods Expected: 08/10/2025, Expires: 02/07/2026[facility] Work Phone: comment on above:Expected: 08/10/2025, Expires: 02/07/2026Start: 83-50-4056JOEKP-19 Vaccine ( season)COVID-19 Vaccine ( season)NOM HealthcareStart: 56-27-1851Tfwpdzrde vaccination Influenza Vaccine (#1)NOM HealthcareStart: 64-91-7417Lmtsdiflk B Vaccines (1 of 3 - 19+ 3-dose series)Hepatitis B Vaccines (1 of 3 - 19+ 3-dose series)NOM HealthcareStart: 36-91-3451FHB Vaccines (1 - 3-dose series)HPV Vaccines (1 - 3- dose series)NOM HealthcareStart: 38-85-1879Rdidrfp of varicella vaccination Varicella Vaccines (1 of 2 - 13+ 2-dose series)NOM HealthcareStart: 2005 DTaP/Tdap/Td Vaccines (1 - Tdap)DTaP/Tdap/Td Vaccines (1 - Tdap)[facility] Start: 04-40-0958CWQ Vaccines (1 of 1 - Standard series)MMR Vaccines (1 of 1 - Standard series)[facility] CenterCytology Cervical or vaginal smear or scraping studyPap Smear Pathology and Cytology Routine Pre-op examination Ordered: 09/14/2025[facility] [employer] Work Phone: comment on above:Ordered: 09/14/2025 Immunizations Immunization DateImmunizationNotesCare FebtmljsFutvlqit39-67-9579cqnbbxauwf, tetanus toxoids and acellular pertussis vaccineJai Whittington 370-3471Ebvrzv-MzhqlTrinity [facility] Digestive Vueizx64-37-4592 SARS-CoV-2 (COVID-19) mRNA BNT-162b2 vaxMugaetano Whittington 913-4254Cbhzpq-Lmvof[address] [place], [place] 8501206-15-2021 SARS-CoV-2 (COVID-19) mRNA BNT-162b2 vaxMuhammad Sarmini 282-6999Aueuka-Gntwx[address] [place], [place] 8501205-25-2021 SARS-CoV-2 (COVID-19) mRNA BNT-162b2 vaxMuhammad Sarmini 492-8261Cltdge-Xkozy[address] [place], [place] 8501208-05-2016 meningococcal ACWY vaccine, unspecified formulationMuhammad Sarmini 394-7864Qchjup-Ubcsq[address] [place], [place] 8501207-01-2011 meningococcal ACWY vaccine, unspecified formulationMuhammad Sarmini 233-1468Kwcmgr-Nihht[address] [place], [place] 8501207-01-2011 tetanus toxoid, reduced diphtheria toxoid, and acellular pertussis vaccine, adsorbedMuhammad Sarmini 749-1608Npnatb-Xdiut[address] [place], [place] 8501211-04-2006 influenza virus vaccine, unspecified formulationMuhammad Sarmini 488-8869Nmwktv-Viwet[address] [place], [place] 8501210-22-2005 influenza, wholeMuhammad Sarmini 122-2471Zhxthb-Lqxpr[address] [place], [place] 8501208-26-2004 DTaP, unspecified formulationMuhammad Sarmini 105-0936Lvxdjq-Cyaus[address] [place], [place] 8501208-26-2004 measles, mumps and rubella virus vaccineMuhammad Sarmini 873-9442Kkkvit-Udqqi[address] [place], [place] 8501208-26-2004 poliovirus vaccine, unspecified formulationMuhammad Sarmini 367-6444Shmdau-Mhnye[address] [place], [place] 8501201-07-2000 DTaP, unspecified formulationMuhammad Sarmini 916-7552Gohzkg-Knlfy[address] [place], [place] 8501201-07-2000 measles, mumps and rubella virus vaccineMuhammad Sarmini 933-1855Vqjilp-BsiwrTrinity Health System [facility] Campus [facility] Uvupma41-15-5623 poliovirus vaccine, unspecified formulationMuhammad Sarmini 069-4166Tvzapi-TebyfCleveland Clinic07-02-1999 DTaP, unspecified formulationMuhammad Sarmini 465-4960Dlztyr-CjqvwCleveland Clinic07-02-1999 hepatitis B vaccine, pediatric or pediatric/adolescent dosageMuhammad Sarmini 294-9487Bmzzlv-CrvsqCleveland Clinic07-02-1999 Hib, unspecified formulationMuhammad Sarmini 207-5960Ixxvmv-FqhkpC[facility] Clinic05-04-1999 DTaP, unspecified formulationMuhammad Sarmini 719-0947Xwdled-ShhhpCleveland Clinic05-04-1999 Hib, unspecified formulationMuhammad Sarmini 119-4294Erucnc-Uncoz[address] [place], [place] 8501203-02-1999 DTaP, unspecified formulationMuhammad Sarmini 816-4075Eusrtw-YtxgvCleveland Clinic03-02-1999 hepatitis B vaccine, pediatric or pediatric/adolescent dosageMuhammad Sarmini 500-9325Wijsaj-FbiebCleveland Clinic03-02-1999 Hib, unspecified formulationMuhammad Sarmini 754-6567Yrwpbf-Jdeca[address] [place] [address] Digestive Bsuqcu26-47-8560 hepatitis B vaccine, pediatric or pediatric/adolescent dosageMuhammad Sarmini 865-9809Jvdblp-Jhyam[address] [place], [place] [address]NEGATED: Highlighted row has not occurred!97-45-4608lamyvyxkb virus vaccine, unspecified formulationMuhammad Sarmini 609-6813Usprwu-Xxiwn[address] [place] [address] Digestive [facility] Payers DatePayer CategoryPayerPolicy [id number] Health InsuranceMEDICAL MUTUAL [id number]-nzf 104ene53-6r9l-858q-1120-[id number] [id number] [id number]-3a5h-2007-4xy5p[id number] 2..1.101041.3.579.2.47313-27-1342Tkgazip1270917 2..1.098337.3.57[id number] 2..1.144064.3.57[id number] 2..1.028529.3.57[id number] 2..1.658017.3.57[id number] 2..1.25[id number] 2..1.130016.3.579.2.531 [id number] 2..1.116373.3.579.2.531 Social History DateTypeDetailFacilityTobacco smoking status NHISUnknown if ever smokedUniversity Hospitals [facility] Work Phone: Start: 05-56-4590Utf [facility]: 02-28-2024 End: 12-81-6075Lja Assigned At [facility]: 05-19-2023 End: 32-92-3735Rxelpfd smoking statusNever smoked tobacco (finding)[facility] Digest[facility] HealthStart: 73-84-0259Nhtincg smoking statusNever [facility] Digestive HealthSexFemale (finding)[facility] Hospitaltart: 51-53-6957Tkjxlja use and exposureSmokeless tobacco non-userNOMS HealthcareStart: 05-14-2024 End: 07-83-5514Dwuvkzmxv beverage intakeLifetime non-drinker (finding)NOMS HealthcareStart: 02-28-2024 End: 75-81-9949Twbzlpr of Social functionNOMS HealthcareStart: 05-14-8186Jrn assigned at [facility] hospitalNot on [facility] Functional Status LyonMlobogeonsVcoeohJhhguyzl95-25-7518Deufpviftq StatusN/[facility] Clinical Notes 10-19-2023 to 09-14-2025 Note Date & YfsfBegtUgxfabhs25-76-4179 History of Present illness Narrative* Kisha Donovan - 09/14/2025 2:40 PM EDT Reason for Appointment: Patient ID: Sherrell Clark is a 24 y.o. female who presents for Gynecologic Exam and Pre-op Visit (Dx lap) Patient presents today for Pre Op/Annual appointment. Patient is scheduled to undergo Diagnostic Laparoscopy, possible JAKE, possible FOE, possible BSO on 10/05/[address] Freire at [facility]. MEDICATIONS Current Outpatient Medications Medication Instructions lamoTRIgine [...] History: Diagnosis Date Anxiety Bacterial vaginosis Cancer ([facility]) 2003 Depression Gonorrhea 07/09/2021 Insulin resistance Ovarian cyst HISTORY PAST MEDICAL HISTORY SOCIAL HISTORY Past Medical History: Diagnosis Date Anxiety Bacterial vaginosis Cancer ([facility]) 2003 Depression Gonorrhea 07/09/2021 Insulin resistance Ovarian [...] nursing note reviewed. Exam conducted with a vp integrity present. Vitals: Estimated body mass index is [...] reviewed, and patient is to proceed to [facility]. Follow Up: Patient is to follow up between 1-2 weeks post operative to assess proper healing and recovery fromprocedure. Documented by Macy Montano LPN on behalf of: Isai Freire DO documented in this encounterRusk Rehabilitation CenterUxlujfmpox97-89-9228 History of Present illness Narrative* Evangelina Wade [...] of: Isai Freire DO documented in this encounterRusk Rehabilitation CenterLwkgxbdffr78-53-1487 Evaluation note* Diagnosis Onset Date Resolution Status Admit Date Headache acuteSeptember 2024 8:02amHistory of mood disorderacuteSeptember 2024 8:02amLightheadedacuteSeptember 2024 8:02amMenorrhagiaacuteSeptember 2024 8:02amHistory of leukemianoneactiveSeptember 2024 8:02am [facility] Work Phone: 1(957) 237-197512-01-2023 Evaluation note* Encounter Date Diagnosis Assessment Notes [...] I did recommend that she see a color adviser to discussthis further and to discuss if she needs a colonoscopy. She is agreeable to the referral to Dr. Garner at [facility]. I did recommend that she use the [...] would not be seen until Sunday (10-22-23) [employer] Other Evaluation + Plan note Future Appointments Appointment Date:03/17/2024 08:15:00 AM Scheduled Provider:Jai Whittington MD Location:[facility] Appointment Type:[facility] Follow Up Future Scheduled Tests Laboratory* Celiac Disease Comprehensive 12/17/23 * CBC w/ Auto Diff 12/17/23 * Comprehensive Metabolic Panel 12/17/23 * Thyroid Stimulating Hormone 12/17/23 [facility] Evaluation noteNo assessment information available [facility] Work Phone: Evaluation note* Diagnosis Constipation, unspecified [...] had leukemia as a childHospitalization Historysee above [employer] Other Hospital course Narrative No data available for this section [facility] Hospital Discharge instructions No data available for this section [facility] Progress note No data available for this section [facility] Reason for referral (narrative)No reason for referral information availableSelect [facility] Work Phone: Chief Complaint and Reason for [...] 1 Cluster headache (G4 4.009) Referral Organization [facility] [place] Referring Provider First Name James Referring Provider Last Name Ronadavy Referring Provider Specialty Family Prac flores Referred Organization [facility] Referred Provider Michael Hahn Referred Address [address], [place],[address] Referred Provider Specialty Neurology Referral Priority Routine General Notes PilloCherelleh 10/19/2023 12:42:35 PM > ANGIE referral form faxed with visit note, med list, demographics and insurance card. pt understands she will be contacted to schedule this appt. Reason appt pt needs cons ult to see Dr. Garner at [facility] about long standing constipation/diarrhea and abdominal pain LL Diagnosis 1 Abdominal pain (R10. 9) Referral Organization [facility] [place] Referring Provider First Name James Referring Provider Last Name Kathe Referring Provider Specialty Family Prac flores Referred Organization [facility] Referred Address [address],[place], [place],[address] Referred Provider Specialty Gastroentero logy Referral Priority [...] [address] [place] [address] PCP - [facility]05/19/23Team MemberRelationshipSpecialtyStart DateEnd Date James Mcqueen MD [address] [place] [address] PCP - [facility]05/19/23 Team Status: Active Member Role/Relationship Status [...] [address] [place] [address] [place] [address] PCP - [facility]05/19/23Team MemberRelationshipSpecialtyStart DateEnd Date James Mcqueen MD [address] [place] [address] [place] [address] PCP - GeneralFamily Medicine05/19/23 Goals (unrecognized section [...] and content) DATE CREATED AUTHOR 03/03/2023 [facility] DATE CREATED AUTHOR AUTHOR'S ORGANIZ ATION 03/19/2024 [facility] DATE CREATED AUTHOR AUTHOR'S ORGANIZ ATION 08/14/2025 [facility] DATE CREATED AUTHOR AUTHOR'S ORGANIZ ATION 09/15/2025 [facility] EPIC REASON FOR [...] BE BASED ON THE PRIMARY CLINICAL RECORDS. [employer]. provides no warranty or guarantee of the accuracy or completeness of information in this document.
[2025-10-05 09:03] LABS: Hematocrit 41.1 % (36.0-48.0); Hemoglobin 13.9 g/dL (12.0-16.0); Immature Granulocytes Abs Auto 0.01 10^3/uL (0.00-0.03); Immature Granulocytes Pct Auto 0.2 % (0.0-0.5); Lymphocytes Absolute Auto 1.7 10^3/uL (1.2-3.8); Mean Corpuscular HGB Conc 33.8 g/dL (29.9-35.2); Mean Corpuscular Hemoglobin 28.9 pg (26.7-34.0); Mean Corpuscular Volume 85.4 fL (81.0-99.0); Platelet Count 207 10^3/uL (150-450); Red Blood Count 4.81 10^6/uL (4.20-5.40); White Blood Count 5.1 10^3/uL (4.0-11.0)
--- NOTE | 2025-10-05 11:37 | P.ON_ITS ---
Brief Operative Note Date of procedure: 10/05/25 Pre-op diagnosis general: pelvic pain, dysmenorrhea Post-op diagnosis: same as pre-op Procedure: NAME OF PROCEDURE: [diagnostic laparoscopy ] PROCEDURE: The patient was taken back to the Operating Room where she was placed in dorsal lithotomy position after given general anesthesia. The patient was prepped and draped in normal sterile fashion. A sponge stick was placed into the patient's vagina. Attention was turned to the patient's abdomen, where a small umbilical incision was made. The fascia was tented using Argenis clamps and the fascia was entered sharply. Confirmation of intraabdominal placement of the 10 mm port was confirmed under direct visualization using a laparoscope. The patient's abdomen was then insufflated using CO2 gas with approximately 4 liters. A second port was placed left laterally, this was done under direct visualization with a 5 mm port. Survey of the patient's abdomen demonstrated normal liver and gallbladder. Survey of the patient's pelvic anatomy demonstrated normal appearing rt and lt ovary and tubes as well as normal appearing uterus. endometrial implants could be noted posterior culdesac as well as on the bladder, no evidence of any pelvic disease was seen, normal appearing pelvic cavity. All instruments were removed from the patient's abdomen. The patient's abdomen was deinsufflated of CO2 gas. The patient tolerated the procedure well. Sponge stick was removed from the patient's vagina. The patient's infraumbilical fascia was closed using #0 Vicryl on a GI needle. The patient's skin was closed laterally and infraumbilically using 4-0 Vicryl. The patient tolerated the procedure well. Sponge, lap and needle counts were correct x 2. The patient was taken to Recovery Room in stable condition. Anesthesia: GETA Surgeon: Vicente Freire Foundry Supervisor: Layla Santos Estimated blood loss (mL): 5 Pathology: none sent Condition: stable Disposition: PACU Urinary Catheter Management Urinary Catheter Management Urethral: Cath placed during this visit: no
--- NOTE | 2025-10-05 12:16 | PC.NURSE ---
PATIENT IS UPSET BECAUSE THIS SCHOOL PHYSICAL THERAPIST WAS NOT REPORTED TO IF THEY FOUND ANYTHING WHILE LOOKING IN THE ABDOMEN. PATIENT JUST WANTS ANSWER FOR WHY SHE HAS PAIN. PATIENT IS TEARFUL. PATIENT ALSO STATES SHE HAS LEFT SIDED DISCOMFORT BUT ALSO HAS A SENSITIVITY TO PAIN MEDICATIONS. THIS SCHOOL PHYSICAL THERAPIST OFFERED ORAL PAIN MEDICATION BUT PATIENT HAS REFUSED THAT AT THIS TIME.
[2025-10-05] MEDS: HYDROCODONE/ACET 5-325 MG TABLET 1 TAB PO (12:42)
== END 2025-10-05 14:08 | disposition home or self-care (01) ==
PROVIDERS: PCP Student in an Organized Health Care Education/Training Program; Visit Provider Obstetrics & Gynecology
PROC: (CPT 840; principal; 2025-10-05 10:10)
DX: N92.0 Excessive and frequent menstruation with regular cycle (principal); R10.30 Lower abdominal pain, unspecified; C95.90 Leukemia, unspecified not having achieved remission; F41.9 Anxiety disorder, unspecified
CPT/HCPCS: 49320; 36415; 84702; 85025; J1100; J1885; J2003; J2250; J2704; J3010